=== PATIENT | male | born 1955 | race African-American/Black ===

== ENCOUNTER 2017-06-14 18:24 | Observation (INO) | payer OTHER ==
--- NOTE | 2017-06-14 19:16 | PDOC ---
Attending Attestation - Resident Resident Name: LoisIsrael - HPI HPI: 06/14/17 22:22 Pt presents to the ED complaining of L sided chest pain that has been constant for one week. Pain is worse with walking or other exertion. Also complaining of intermittent shortness of breath. Multiple cardiac risk factors. 06/14/17 22:28 - Physicial Exam PE: 06/14/17 22:28 Agree with resident exam. PAtient is alert and oriented and in no acute distress. Lungs are clear. Heart has regular rate and rhythm. No edema. - Medical Decision Making 06/14/17 22:34 Pt presents to the ED complaining of chest pain. Multiple risk factors for cardiac disease with a heart score of 4. Will check labs and admit to observation for rule out ACS.
--- NOTE | 2017-06-14 20:13 | PDOC ---
History of Present Illness <Whitney Alberts - Last Filed: 06/14/17 21:55> - General History Source: Patient Exam Limitations: No Limitations - History of Present Illness Initial Comments: 06/14/17 20:07 62yo M with history of IDDM, HTN, HLd who presents with one week of left anterior chest and arm pain. Pt reports the pain is more of a throbbing sensation, however at peak intensity the pain will cause him to catch his breath and moments of lightheadedness without syncope. Pt also endorses some increasing dyspnea on exertion. Pt denies seeing a [facility] erp architect in the past. He denies any fevers/chils, headaches, n/v/d/c, dizziness, blurry vision, shortness of breath at baseline, palpitations, abdominal pain, dysuria, polyuria , and lower extremity edema. Pt denies any smoking history. PCP: [facility] <Israel Abreu - Last Filed: 06/14/17 22:24> <Megan Sanchez - Last Filed: 06/15/17 03:53> - General Chief Complaint: Chest Pain Stated Complaint: chest pain Time Seen by Provider: 06/14/17 19:03 Past History <Whitney Alberts - Last Filed: 06/14/17 21:55> - Past Medical History Asthma: No Cardiac Disorders: Yes (1999 and 2006 [place]'s) CVA: Yes (2013) COPD: No Diabetes: Yes GI Disorders: No Disorders: No HTN: Yes Hypercholesterolemia: Yes Seizures: No - Surgical History Abdominal Surgery: No Appendectomy: No Cardiac Surgery: No Cholecystectomy: No Lung Surgery: No Neurologic Surgery: No Orthopedic Surgery: Yes (R TKR and lower back) - Reproductive History Testicular Surgery: No - Suicide/Smoking/Psychosocial Hx Smoking Status: No Smoking History: Never smoked Have you smoked in the past 12 months: No Number of Cigarettes Smoked Daily: 0 Information on smoking cessation initiated: No Hx Alcohol Use: No Drug/Substance Use Hx: No Substance Use Type: Alcohol, Cocaine Hx Substance Use Treatment: Yes <Israel Abreu - Last Filed: 06/14/17 22:24> <Megan Sanchez - Last Filed: 06/15/17 03:53> - Past Medical History Allergies/Adverse Reactions: Allergies Allergy/AdvReac Type Severity Reaction Status Date / Time No Known Allergies Allergy Verified 06/14/17 19:01 Home Medications: Ambulatory Orders Acetaminophen with Codeine [Tylenol # 4 -] 1 tab PO Q6H 04/07/13 Amlodipine Besylate [Norvasc -] 10 mg PO DAILY 04/07/13 Atorvastatin Ca [Lipitor] 80 mg PO DAILY 04/07/13 Cholecalciferol (Vitamin D3) [Vitamin D3] 1,000 unit PO DAILY 04/07/13 Terazosin HCl 5 mg PO DAILY 04/07/13 Clopidogrel Bisulfate [Plavix -] 75 mg PO DAILY 09/26/13 Insulin (Novolog 70/30) [Novolog Mix 70/30 Flexpen -] 42 units SQ ACBK 09/26/13 Insulin (Novolog 70/30) [Novolog Mix 70/30 Flexpen -] 45 units SQ HS 09/26/13 Metformin HCl [Metformin HCl ER] 4,000 mg PO DAILY 09/26/13 Methocarbamol [Robaxin -] 500 mg PO DAILY 09/26/13 Review of Systems - Review of Systems Constitutional: No: Chills, Fever, Night Sweats, Weakness HEENTM: No: Blurred Vision, Nose Congestion, Throat Pain Respiratory: Yes: SOB with Exertion. No: Cough, Wheezing Cardiac (ROS): Yes: Chest Pain, Lightheadedness. No: Edema, Palpitations, Syncope ABD/GI: No: Abdominal Distended, Constipated, Diarrhea, Nausea, Vomiting, Abdominal cramping : No: Burning, Dysuria, Frequency, Flank Pain Musculoskeletal: No: Back Pain, Neck Pain Neurological: Yes: Unsteady Gait. No: Headache, Numbness, Paresthesia, Tingling Hematologic/Lymphatic: No: Easy Bleeding, Easy Bruising <Israel Abreu - Last Filed: 06/14/17 22:24> *Physical Exam - Vital Signs Last Vital Signs Temp Pulse Resp BP Pulse Ox 98.5 F 108 H 17 94/72 100 06/14/17 21:13 06/14/17 21:13 06/14/17 21:13 06/14/17 21:13 06/14/17 21:13 <Whitney Alberts - Last Filed: 06/14/17 21:55> - Vital Signs Last Vital Signs Temp Pulse Resp BP Pulse Ox 97.8 F 93 H 20 109/72 98 06/14/17 19:02 06/14/17 19:02 06/14/17 19:02 06/14/17 19:02 06/14/17 19:02 - Physical Exam Comments: 06/14/17 20:43 GEN: NAD, awake, alert, laying in bed HEENT: NC/AT, EOMI, ARNOL, sclera anicteric, dry-moist mucosa without any plaques noted Neck: Soft, no JVD LUNGS: CTA bilaterally CARDIAC: RRR no murmurs appreciated CHEST: Pain reproducible with palpation of anterior wall ABD: Soft, slightly distended (pt's normal), nontender, no guarding, no rebound EXT: No edema noted, warm, 2+ DP pulses <Israel Abreu - Last Filed: 06/14/17 22:24> - Vital Signs Last Vital Signs Temp Pulse Resp BP Pulse Ox 98.6 F 100 H 15 108/70 100 06/15/17 03:00 06/15/17 03:00 06/15/17 03:00 06/15/17 03:00 06/15/17 03:00 <Megan Sanchez - Last Filed: 06/15/17 03:53> Heart Score/ECG Review - History History: Moderately suspicious - Electrocardiogram EKG: Normal - Age Age: 45-65 - Risk Factors Risk Factors Heart Score: Yes Hx Hypercholesterolemia, Yes Hx Hypertension, Yes Hx Diabetes Based on the list above the patient has:: >/=3 risk factors or Hx atherosclerotic disease - Troponin Troponin: </= normal limit - Score Heart Score - Total: 4 <Whitney Alberts - Last Filed: 06/14/17 21:55> - History History: Moderately suspicious - Electrocardiogram EKG: Normal - Age Age: 45-65 - Risk Factors Risk Factors Heart Score: Yes Hx Hypercholesterolemia, Yes Hx Hypertension, Yes Hx Diabetes, No Smoking History Based on the list above the patient has:: >/=3 risk factors or Hx atherosclerotic disease - Troponin Troponin: </= normal limit - Score Heart Score - Total: 4 #1 General ECG Interpretation: Sinus Rhythm, Normal Rate, Normal Intervals, No acute ischemic changes 06/14/17 20:22 NSR, Normal [place], normal R-wave progression, QTc 435ms, [place] interval 150ms <Israel Abreu - Last Filed: 06/14/17 22:24> ED Treatment Course - LABORATORY CBC & Chemistry Diagram: 06/14/17 20:15 06/14/17 20:29 - ADDITIONAL ORDERS Additional order review: Laboratory Results 06/14/17 06/14/17 06/14/17 20:29 20:29 20:15 Sodium 137 Potassium 4.8 D Chloride 113 H Carbon Dioxide 17 L D Anion Gap 7 L BUN 34 H D Creatinine 1.8 H D Creat Clearance w eGFR 38.68 Random Glucose 265 H D Calcium 7.0 L Total Bilirubin 0.5 AST 45 H D ALT 51 D Alkaline Phosphatase 90 D Creatine Kinase 185 Troponin I < 0.02 Cancelled Total Protein 7.4 Albumin 4.0 06/14/17 20:15 Sodium Cancelled Potassium Cancelled Chloride Cancelled Carbon Dioxide Cancelled Anion Gap Cancelled BUN Cancelled Creatinine Cancelled Creat Clearance w eGFR Cancelled Random Glucose Cancelled Calcium Cancelled Total Bilirubin Cancelled AST Cancelled ALT Cancelled Alkaline Phosphatase Cancelled Creatine Kinase Troponin I Total Protein Cancelled Albumin Cancelled 06/14/17 20:15 RBC 4.46 MCV 88.2 MCHC 34.4 RDW 15.6 MPV 9.9 Neutrophils % 68.0 Lymphocytes % 17.0 D Monocytes % 12.9 H Eosinophils % 1.2 Basophils % 0.9 - Medications Given in the ED: ED Medications Discontinued Medications Generic Name Dose Route Start Last Admin Trade Name Freq PRN Reason Stop Dose Admin Ibuprofen 600 mg 06/14/17 21:49 06/14/17 21:49 Motrin - PO 06/14/17 21:50 600 mg ONCE ONE Administration <Whitney Alberts - Last Filed: 06/14/17 21:55> - LABORATORY CBC & Chemistry Diagram: 06/14/17 20:15 06/14/17 20:29 - RADIOLOGY Radiology Studies Ordered: Category Date Time Status CXRPORT [CHEST X-RAY PORTABLE*] [RAD] Stat Radiology 06/14/17 19:45 Ordered <Israel Abreu - Last Filed: 06/14/17 22:24> - LABORATORY CBC & Chemistry Diagram: 06/14/17 20:15 06/14/17 20:29 - ADDITIONAL ORDERS Additional order review: Laboratory Results 06/14/17 06/14/17 06/14/17 20:29 20:29 20:15 Sodium 137 Potassium 4.8 D Chloride 113 H Carbon Dioxide 17 L D Anion Gap 7 L BUN 34 H D Creatinine 1.8 H D Creat Clearance w eGFR 38.68 Random Glucose 265 H D Calcium 7.0 L Total Bilirubin 0.5 AST 45 H D ALT 51 D Alkaline Phosphatase 90 D Creatine Kinase 185 Creatine Kinase Index 0.7 CK-MB (CK-2) 1.334 Troponin I < 0.02 Cancelled Total Protein 7.4 Albumin 4.0 06/14/17 20:15 Sodium Cancelled Potassium Cancelled Chloride Cancelled Carbon Dioxide Cancelled Anion Gap Cancelled BUN Cancelled Creatinine Cancelled Creat Clearance w eGFR Cancelled Random Glucose Cancelled Calcium Cancelled Total Bilirubin Cancelled AST Cancelled ALT Cancelled Alkaline Phosphatase Cancelled Creatine Kinase Creatine Kinase Index CK-MB (CK-2) Troponin I Total Protein Cancelled Albumin Cancelled 06/14/17 20:15 RBC 4.46 MCV 88.2 MCHC 34.4 RDW 15.6 MPV 9.9 Neutrophils % 68.0 Lymphocytes % 17.0 D Monocytes % 12.9 H Eosinophils % 1.2 Basophils % 0.9 - Medications Given in the ED: ED Medications Discontinued Medications Generic Name Dose Route Start Last Admin Trade Name Freq PRN Reason Stop Dose Admin Ibuprofen 600 mg 06/14/17 21:49 06/14/17 21:49 Motrin - PO 06/14/17 21:50 600 mg ONCE ONE Administration <Megan Sanchez - Last Filed: 06/15/17 03:53> Medical Decision Making - Medical Decision Making 06/14/17 20:55 Highly suspect costochronditis, however will r/o ACS --EKG reveals NSR with normal axis, normal R-wave progression, no ST abnormalities --CBC, CMP, Troponin I --CXR 06/14/17 21:50 Motrin 600mg PO once for pain currently <Israel Abreu - Last Filed: 06/14/17 22:24> *DC/Admit/Observation/Transfer <Whitney Alberts - Last Filed: 06/14/17 21:55> <Israel Abreu - Last Filed: 06/14/17 22:24> - Discharge Dispostion Admit: Yes <Megan Sanchez - Last Filed: 06/15/17 03:53> Diagnosis at time of Disposition: Chest pain Qualifiers: Chest pain type: unspecified Qualified Code(s): R07.9 - Chest pain, unspecified - Discharge Dispostion Condition at time of disposition: Stable
[2017-06-14 20:20] LABS: BASO % 0.9 % (0-2.0); EOS % 1.2 % (0-4.5); HEMATOCRIT 39.3 % (35.4-49); HEMOGLOBIN 13.5 GM/dL (11.7-16.9); MCH 30.3 pg (25.7-33.7); MCHC 34.4 g/dl (32.0-35.9); MEAN CELL VOLUME 88.2 fl (80-96); MEAN PLT VOLUME 9.9 fl (7.5-11.1); MONO % 12.9 % (3.8-10.2); PLATELET COUNT 204 K/MM3 (134-434); RBC 4.46 M/mm3 (4.00-5.60); RDW 15.6 % (11.9-15.9); WHITE BLOOD COUNT 4.7 K/mm3 (4.0-10.0)
[2017-06-14 21:31] LABS: ALK PHOS 90 U/L (45-117); ANION GAP 7 (8-16); BILIRUBIN,TOTAL 0.5 mg/dL (0.2-1.0); BLOOD UREA NITROGEN 34 mg/dL (7-18); CHLORIDE 113 mmol/L (98-107); CO2 17 mmol/L (21-32); CREATININE 1.8 mg/dL (0.7-1.3); GLUCOSE,RANDOM 265 mg/dL (74-106); POTASSIUM 4.8 mmol/L (3.5-5.1); SGOT/AST 45 U/L (15-37); SGPT/ALT 51 U/L (12-78); SODIUM 137 mmol/L (136-145); TOT PROT 7.4 g/dl (6.4-8.2)
[2017-06-14] MEDS ORDERED: IBUPROFEN 600 MG TABLET (FP) PO ONE ×2 (21:49→21:50)
--- NOTE | 2017-06-15 00:46 | HP ---
CHIEF COMPLAINT: CHest pain PCP: follows at [facility] HISTORY OF PRESENT ILLNESS: The patient is a 62 yo m w/ PMH DM HTN, HLD , CAD s/p MIx2 who comes into the ED c/o a 1 week history of left sided chest pain. The patient was walking as a normal pace when he felt an acute onset of a throbbing pain on the left side of his chest. The pain radiated to his left arm and is associated with lightheadedness and dyspnea on exertion. The patient denies any breathing problems at baseline. He does not follow with a [facility] consultant. The patient does not recall what medications he takes. The patient denies chest pain, Headache, palpitations, abdominal pain, trecent trauma to the area. 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 Allergies No Known Allergies Allergy (Verified 06/14/17 19:01) HOME MEDICATIONS: Home Medications Medication Instructions Recorded Acetaminophen with Codeine 1 tab PO Q6H 04/07/13 [Tylenol # 4 -] Amlodipine Besylate [Norvasc -] 10 mg PO DAILY 04/07/13 Atorvastatin Ca [Lipitor] 80 mg PO DAILY 04/07/13 Cholecalciferol (Vitamin D3) 1,000 unit PO DAILY 04/07/13 [Vitamin D3] Terazosin HCl 5 mg PO DAILY 04/07/13 Clopidogrel Bisulfate [Plavix -] 75 mg PO DAILY 09/26/13 Insulin (Novolog 70/30) [Novolog 42 units SQ ACBK 09/26/13 Mix 70/30 Flexpen -] Insulin (Novolog 70/30) [Novolog 45 units SQ HS 09/26/13 Mix 70/30 Flexpen -] Metformin HCl [Metformin HCl ER] 4,000 mg PO DAILY 09/26/13 Methocarbamol [Robaxin -] 500 mg PO DAILY 09/26/13 REVIEW OF SYSTEMS CONSTITUTIONAL: Absent: fever, chills, diaphoresis, generalized weakness, malaise, loss of appetite, weight change HEENT: Absent: rhinorrhea, nasal congestion, throat pain, throat swelling, difficulty swallowing, mouth swelling, ear pain, eye pain, visual changes CARDIOVASCULAR: Absent: syncope, palpitations, irregular heart rate, lightheadedness, peripheral edema RESPIRATORY: Absent: cough, orthopnea, wheezing, stridor, hemoptysis GASTROINTESTINAL: Absent: abdominal pain, abdominal distension, nausea, vomiting, diarrhea, constipation, melena, hematochezia GENITOURINARY: Absent: dysuria, frequency, urgency, hesitancy, hematuria, flank pain, genital pain MUSCULOSKELETAL: Absent: myalgia, arthralgia, joint swelling, back pain, neck pain SKIN: Absent: rash, itching, pallor HEMATOLOGIC/IMMUNOLOGIC: Absent: easy bleeding, easy bruising, lymphadenopathy, frequent infections ENDOCRINE: Absent: unexplained weight gain, unexplained weight loss, heat intolerance, cold intolerance NEUROLOGIC: Absent: headache, focal weakness or paresthesias, unsteady gait, seizure, mental status changes, bladder or bowel incontinence PSYCHIATRIC: Absent: anxiety, depression, suicidal or homicidal ideation, hallucinations. PHYSICAL EXAMINATION Vital Signs - 24 hr 06/14/17 06/14/17 19:02 21:13 Temperature 97.8 F 98.5 F Pulse Rate 93 H Pulse Rate [ 108 H Apical] Respiratory 20 17 Rate Blood Pressure 109/72 Blood Pressure 94/72 [Left Arm] O2 Sat by Pulse 98 100 Oximetry (%) GENERAL: Awake, alert, and fully oriented, in no acute distress. HEAD: Normal with no signs of trauma. EYES: Pupils equal, round and reactive to light, extraocular movements intact, sclera anicteric, conjunctiva clear. No lid lag. LUNGS: Breath sounds equal, clear to auscultation bilaterally. No wheezes, and no crackles. No accessory muscle use. HEART: Regular rate and rhythm, normal S1 and S2 without murmur, rub or gallop. The chest wall is tender to palpation on the left side from the clavicle down to the nipple line. Patient prticularly tender and the costochondral junctions. There is an assymmetry of the rib cage with the left being slightly scaphiod campred to the right. No tenderness on the left arm. ABDOMEN: Soft, nontender, not distended, normoactive bowel sounds, no guarding, no rebound, no masses. No hepatomegaly or splenomegaly. LOWER EXTREMITIES: 2+ pulses, warm, well-perfused. No calf tenderness. No peripheral edema. NEUROLOGICAL: Cranial nerves II-X intact. Normal speech. PSYCHIATRIC: Cooperative. Good eye contact. Appropriate mood and affect. SKIN: Warm, dry, normal turgor, no rashes or lesions noted, normal capillary refill. Laboratory Results - last 24 hr 06/14/17 06/14/17 06/14/17 20:15 20:15 20:15 WBC 4.7 RBC 4.46 Hgb 13.5 Hct 39.3 MCV 88.2 MCH 30.3 MCHC 34.4 RDW 15.6 Plt Count 204 MPV 9.9 Neutrophils % 68.0 Lymphocytes % 17.0 D Monocytes % 12.9 H Eosinophils % 1.2 Basophils % 0.9 Sodium Cancelled Potassium Cancelled Chloride Cancelled Carbon Dioxide Cancelled Anion Gap Cancelled BUN Cancelled Creatinine Cancelled Creat Clearance w eGFR Cancelled Random Glucose Cancelled Calcium Cancelled Total Bilirubin Cancelled AST Cancelled ALT Cancelled Alkaline Phosphatase Cancelled Creatine Kinase Creatine Kinase Index CK-MB (CK-2) Troponin I Cancelled Total Protein Cancelled Albumin Cancelled 06/14/17 06/14/17 20:29 20:29 WBC RBC Hgb Hct MCV MCH MCHC RDW Plt Count MPV Neutrophils % Lymphocytes % Monocytes % Eosinophils % Basophils % Sodium 137 Potassium 4.8 D Chloride 113 H Carbon Dioxide 17 L D Anion Gap 7 L BUN 34 H D Creatinine 1.8 H D Creat Clearance w eGFR 38.68 Random Glucose 265 H D Calcium 7.0 L Total Bilirubin 0.5 AST 45 H D ALT 51 D Alkaline Phosphatase 90 D Creatine Kinase 185 Creatine Kinase Index 0.7 CK-MB (CK-2) 1.334 Troponin I < 0.02 Total Protein 7.4 Albumin 4.0 ASSESSMENT/PLAN: The patient is a 62 yo m w/ DM, HTN, CAD s/p MS x2 who comes in c/o left sided cheat and arm pain. The patient is being admitted to rule out ACS. #Chest and arm pain likely 2/2 costochondritis vs musculoskeletal eitology r/o ACS -Pain reproducible on palpation -EKG shows NSR -Trop negative x2 -Ibuprofen 600mg Q6H PRN pain #DM -BGM ACHS -ISS ACHS -holding oral hypoglycemics #HTN -will resume home meds from medical record -c/w home norvasc 10mg #FEN -no fluids indicated -monitor lytes, replete PRN -diabetic diet #Dispo -admit tele obs -patient's home meds need to be verified with the [facility]; the pharmacy in the EMR is outdated Visit type - Emergency Visit Emergency Visit: Yes ED Registration Date: 06/15/17 Care time: The patient presented to the Emergency Department on the above date and was hospitalized for further evaluation of their emergent condition. - New Patient This patient is new to me today: Yes Date on this admission: 06/15/17 - Critical Care Critical Care patient: No Hospitalist Screening - Colonoscopy Questionnaire Colonoscopy Questionnaire: Colonoscopy Questionnaire - Patient: 50 - 75 years old and never had a screening colonoscopy: Unknown History of colon or rectal polyps, or CA: Unknown History of IBD, Crohn's disease or UC: Unknown History of abdominal radiation therapy as a child: Unknown - Relative: 1 with colon or rectal CA, or polyps at age 60 or younger: Unknown Colon or rectal CA diagnosed at age 45 or younger: Unknown Multiple relatives with colon or rectal CA: Unknown - Outcome: Screening Result: Negative Screen
[2017-06-15 05:26] VITALS: BMI 26.9
[2017-06-15] MEDS ORDERED: ACETAMINOPHEN 325 MG TABLET (FP) PO PRN (06:03)
--- NOTE | 2017-06-15 06:25 | PN ---
Teaching Attending Note Name of Resident: Esau Acosta ATTENDING PHYSICIAN STATEMENT I saw and evaluated the patient. I reviewed the resident's note and discussed the case with the resident. I agree with the resident's findings and plan as documented. 62 y/o M c/o left sided chest pain which started while walking. Past Medical History of CAD,HTN, DLP, h/o CVA with left hemiparesis and Diabetes Mellitus. On examination pain reproducible on palpation of anterior left hemithroax. Patient admitted to r/o ACS, troponins trended and patient given Aspiurin 325mg and ibuprofen for pain which was then relieved. CP most likely secondary to costochrondritis. patient can be discharged in morning.
[2017-06-15] MEDS ORDERED: INSULIN (NOVOLOG) ASPART 100 UNITS/ML 10ML VIAL ONE (06:48)
[2017-06-15] MEDS: INSULIN SLIDING SCALE (NOVOLOG) 1 VIAL SQ SCH ×4 (06:49→21:21)
[2017-06-15] MEDS ORDERED: IBUPROFEN 600 MG TABLET (FP) PO PRN (08:29)
[2017-06-15 08:42] LABS: BASO % 0.8 % (0-2.0); EOS % 1.3 % (0-4.5); HEMATOCRIT 36.5 % (35.4-49); HEMOGLOBIN 12.7 GM/dL (11.7-16.9); LYMPH % 26.8 % (8-40); MCH 30.3 pg (25.7-33.7); MCHC 34.8 g/dl (32.0-35.9); MEAN CELL VOLUME 87.2 fl (80-96); MEAN PLT VOLUME 9.7 fl (7.5-11.1); MONO % 14.2 % (3.8-10.2); NEUT % 56.9 % (42.8-82.8); PLATELET COUNT 192 K/MM3 (134-434); RBC 4.18 M/mm3 (4.00-5.60); WHITE BLOOD COUNT 4.5 K/mm3 (4.0-10.0)
[2017-06-15 09:04] LABS: ANION GAP 4 (8-16); BLOOD UREA NITROGEN 29 mg/dL (7-18); CALCIUM 7.2 mg/dL (8.5-10.1); CHLORIDE 111 mmol/L (98-107); CHOLESTEROL 70 mg/dL (50-200); CO2 22 mmol/L (21-32); CREATININE 1.3 mg/dL (0.7-1.3); GLUCOSE,RANDOM 196 mg/dL (74-106); HDL CHOLESTEROL 31 mg/dL (40-60); POTASSIUM 4.5 mmol/L (3.5-5.1); SODIUM 137 mmol/L (136-145); TRIGLYCERIDES 67 mg/dL (35-160)
[2017-06-15] MEDS ORDERED: PT OWN MED DRAWER 7, Y5N ONE (09:06)
[2017-06-15] MEDS: ATORVASTATIN CA 80 MG TABLET (FP) PO SCH (09:16)
[2017-06-15] MEDS: CLOPIDOGREL BISULFATE 75 MG TABLET (FP) PO SCH (09:16)
[2017-06-15] MEDS: METHOCARBAMOL 500 MG TABLET PO SCH (09:16)
[2017-06-15] MEDS: TERAZOSIN HCL 5 MG CAPSULE PO SCH (09:17)
[2017-06-15] MEDS: amLODIPine BESYLATE 10 MG TABLET (FP) PO SCH (09:17)
--- NOTE | 2017-06-15 10:41 | PN ---
Physical Exam: SUBJECTIVE: Patient seen and examined Patient has no new complain, feels better. No further chest pain. No fever or chills. OBJECTIVE: Vital Signs Temperature 97.4 F L 06/15/17 05:10 Pulse Rate 63 06/15/17 05:47 Respiratory Rate 16 06/15/17 05:47 Blood Pressure 148/84 06/15/17 05:10 O2 Sat by Pulse Oximetry (%) 98 06/15/17 05:10 GENERAL: The patient is awake, alert, and fully oriented, in no acute distress. HEAD: Normal with no signs of trauma. EYES: PERRL, extraocular movements intact, sclera anicteric, conjunctiva clear. ENT: Ears normal, oropharynx clear without exudates, moist mucous membranes. NECK: Trachea midline, full range of motion, supple. LUNGS: Breath sounds equal, clear to auscultation bilaterally, no wheezes, no crackles, no accessory muscle use. HEART: Regular rate and rhythm, S1, S2 without murmur, rub or gallop. ABDOMEN: Soft, nontender, nondistended, normoactive bowel sounds, no guarding, no rebound, no hepatosplenomegaly, no masses. EXTREMITIES: 2+ pulses, warm, well-perfused, no edema. NEUROLOGICAL: Cranial nerves II through XII grossly intact. Normal speech, gait not observed. PSYCH: Normal mood, normal affect. SKIN: Warm, dry, normal turgor, no rashes or lesions noted Active Medications Generic Name Dose Route Start Last Admin Trade Name Freq PRN Reason Stop Dose Admin Amlodipine Besylate 10 mg 06/15/17 10:00 06/15/17 09:17 Norvasc - PO 10 mg DAILY CHEN Administration Atorvastatin Calcium 80 mg 06/15/17 10:00 06/15/17 09:16 Lipitor - PO 80 mg DAILY CHEN Administration Clopidogrel Bisulfate 75 mg 06/15/17 10:00 06/15/17 09:16 Plavix - PO 75 mg DAILY CHEN Administration Ibuprofen 600 mg 06/15/17 08:29 Motrin - PO Q4H PRN PAIN LEVEL 6-10 Insulin Aspart 1 vial 06/15/17 07:00 06/15/17 06:49 Novolog Vial Sliding Scale - SQ 6 unit ACHS CHEN Administration Protocol Methocarbamol 500 mg 06/15/17 10:00 06/15/17 09:16 Robaxin - PO 500 mg DAILY CHEN Administration Terazosin HCl 5 mg 06/15/17 10:00 06/15/17 09:17 Hytrin - PO 5 mg DAILY CHEN Administration Home Medications Medication Instructions Recorded Acetaminophen with Codeine 1 tab PO Q6H PRN 04/07/13 [Tylenol # 4 -] Amlodipine Besylate [Norvasc -] 10 mg PO DAILY 04/07/13 Atorvastatin Ca [Lipitor] 80 mg PO DAILY 04/07/13 Cholecalciferol (Vitamin D3) 1,000 unit PO DAILY 04/07/13 [Vitamin D3] Terazosin HCl 5 mg PO DAILY 04/07/13 Clopidogrel Bisulfate [Plavix -] 75 mg PO DAILY 09/26/13 Insulin (Novolog 70/30) [Novolog 42 units SQ ACBK 09/26/13 Mix 70/30 Flexpen -] Insulin (Novolog 70/30) [Novolog 45 units SQ HS 09/26/13 Mix 70/30 Flexpen -] Metformin HCl [Metformin HCl ER] 500 mg PO DAILY 09/26/13 Methocarbamol [Robaxin -] 500 mg PO DAILY 09/26/13 ASSESSMENT/PLAN: The patient is a 62 yo m w/ DM, HTN, CAD s/p [place] x2 who comes in c/o left sided chest and arm pain. The patient is being admitted to rule out ACS. #Acute Chest pain resolved and arm pain likely 2/2 costochondritis vs musculoskeletal etiology , 3 sets if trops were negative, pain is reproducible on palpation EKG shows NSR. No further chest pain. #DM BGM ACHS, ISS ACHS, metformin is on hold #HTN continue home norvasc 10mg admit tele obs. possible discharge in am Visit type - Emergency Visit Emergency Visit: Yes ED Registration Date: 06/15/17 Care time: The patient presented to the Emergency Department on the above date and was hospitalized for further evaluation of their emergent condition. - New Patient This patient is new to me today: Yes Date on this admission: 06/15/17 - Critical Care Critical Care patient: No - Discharge Referral Referred to [facility] Med [facility] No
[2017-06-15 13:56] LABS: ALBUMIN 3.7 g/dl (3.4-5.0); ALK PHOS 74 U/L (45-117); BILIRUBIN,TOTAL 0.4 mg/dL (0.2-1.0); SGOT/AST 28 U/L (15-37); SGPT/ALT 47 U/L (12-78); TOT PROT 6.5 g/dl (6.4-8.2)
[2017-06-15 14:53] LABS: INR 1.04 (0.82-1.09); PROTHROMBIN TIME (PATIENT) 11.8 SEC (9.7-13.0)
[2017-06-16] MEDS: INSULIN SLIDING SCALE (NOVOLOG) 1 VIAL SQ SCH ×2 (06:33→11:37)
--- NOTE | 2017-06-16 08:42 | PN ---
Physical Exam: SUBJECTIVE: Patient seen and examined No acute events overnight. Patient feels well this morning. Denies any more chest pain. OBJECTIVE: Vital Signs Period Temp Pulse Resp BP Sys/Sagastume Pulse Ox Last 24 Hr 98.1 F-98.8 F 75-108 16-20 102-124/53-77 97-97 GENERAL: Awake, alert, and fully oriented, in no acute distress. HEAD: Normal with no signs of trauma. EYES: Extraocular movements intact, sclera anicteric, conjunctiva clear. No lid lag. LUNGS: Breath sounds equal, clear to auscultation bilaterally. No wheezes, and no crackles. No accessory muscle use. HEART: Regular rate and rhythm, normal S1 and S2 without murmur, rub or gallop. ABDOMEN: Soft, nontender, not distended, normoactive bowel sounds, no guarding, no rebound, no masses. No hepatomegaly or splenomegaly. LOWER EXTREMITIES: 2+ pulses, warm, well-perfused. No calf tenderness. No peripheral edema. NEUROLOGICAL: Cranial nerves II-X intact. Normal speech. PSYCHIATRIC: Cooperative. Good eye contact. Appropriate mood and affect. SKIN: Warm, dry, normal turgor, no rashes or lesions noted, normal capillary refill. Laboratory Results - last 24 hr 06/15/17 06/15/17 06/15/17 06:00 08:10 08:10 WBC 4.5 RBC 4.18 Hgb 12.7 Hct 36.5 MCV 87.2 MCH 30.3 MCHC 34.8 RDW 15.0 Plt Count 192 MPV 9.7 Neutrophils % 56.9 Lymphocytes % 26.8 D Monocytes % 14.2 H Eosinophils % 1.3 Basophils % 0.8 PT with INR 11.80 INR 1.04 PTT (Actin FS) 33.5 Sodium Potassium Chloride Carbon Dioxide Anion Gap BUN Creatinine Creat Clearance w eGFR POC Glucometer Random Glucose Hemoglobin A1c % Calcium Total Bilirubin AST ALT Alkaline Phosphatase Total Protein Albumin Triglycerides Cholesterol Total LDL Cholesterol HDL Cholesterol 06/15/17 06/15/17 06/15/17 08:10 08:10 11:20 WBC RBC Hgb Hct MCV MCH MCHC RDW Plt Count MPV Neutrophils % Lymphocytes % Monocytes % Eosinophils % Basophils % PT with INR INR PTT (Actin FS) Sodium 137 Potassium 4.5 Chloride 111 H Carbon Dioxide 22 D Anion Gap 4 L BUN 29 H Creatinine 1.3 D Creat Clearance w eGFR No Result Required. POC Glucometer 206 Random Glucose 196 H D Hemoglobin A1c % 13.5 H D Calcium 7.2 L Total Bilirubin 0.4 AST 28 D ALT 47 Alkaline Phosphatase 74 Total Protein 6.5 Albumin 3.7 Triglycerides 67 D Cholesterol 70 D Total LDL Cholesterol 38 D HDL Cholesterol 31 L D 06/15/17 06/15/17 06/16/17 16:43 21:17 06:14 WBC RBC Hgb Hct MCV MCH MCHC RDW Plt Count MPV Neutrophils % Lymphocytes % Monocytes % Eosinophils % Basophils % PT with INR INR PTT (Actin FS) Sodium Potassium Chloride Carbon Dioxide Anion Gap BUN Creatinine Creat Clearance w eGFR POC Glucometer 252 262 258 Random Glucose Hemoglobin A1c % Calcium Total Bilirubin AST ALT Alkaline Phosphatase Total Protein Albumin Triglycerides Cholesterol Total LDL Cholesterol HDL Cholesterol Active Medications Generic Name Dose Route Start Last Admin Trade Name Freq PRN Reason Stop Dose Admin Amlodipine Besylate 10 mg 06/15/17 10:00 06/15/17 09:17 Norvasc - PO 10 mg DAILY CHEN Administration Atorvastatin Calcium 80 mg 06/15/17 10:00 06/15/17 09:16 Lipitor - PO 80 mg DAILY CHEN Administration Clopidogrel Bisulfate 75 mg 06/15/17 10:00 06/15/17 09:16 Plavix - PO 75 mg DAILY CHEN Administration Ibuprofen 600 mg 06/15/17 08:29 06/15/17 21:24 Motrin - PO 600 mg Q4H PRN Administration PAIN LEVEL 6-10 Insulin Aspart 1 vial 06/15/17 07:00 06/16/17 06:33 Novolog Vial Sliding Scale - SQ 6 unit ACHS CHEN Administration Protocol Methocarbamol 500 mg 06/15/17 10:00 06/15/17 09:16 Robaxin - PO 500 mg DAILY CHEN Administration Terazosin HCl 5 mg 06/15/17 10:00 06/15/17 09:17 Hytrin - PO 5 mg DAILY CHEN Administration ASSESSMENT/PLAN: The patient is a 62 yo m w/ DM, HTN, CAD s/p SD x2 who comes in c/o left sided cheat and arm pain. The patient is being admitted to rule out ACS. #Chest and arm pain likely 2/2 costochondritis vs musculoskeletal eitology r/o ACS -EKG shows NSR -Trop negative x2 -Ibuprofen 600mg Q6H PRN pain #DM, uncontrolled A1c of 13.5 -BGM ACHS -ISS ACHS -holding oral hypoglycemics -started levemir 14 units hs -Endocrine consult for uncontrolled DM #HTN -will resume home meds from medical record -c/w home norvasc 10mg #FEN -no fluids indicated -monitor lytes, replete PRN -diabetic diet #Dispo -pending better control of sugars Visit type - Emergency Visit Emergency Visit: Yes ED Registration Date: 06/15/17 Care time: The patient presented to the Emergency Department on the above date and was hospitalized for further evaluation of their emergent condition. - New Patient This patient is new to me today: Yes Date on this admission: 06/16/17 - Critical Care Critical Care patient: No
[2017-06-16] MEDS ORDERED: PT OWN MED DRAWER 7, Y5N ONE (09:29)
[2017-06-16] MEDS: ATORVASTATIN CA 80 MG TABLET (FP) PO SCH (09:50)
[2017-06-16] MEDS: CLOPIDOGREL BISULFATE 75 MG TABLET (FP) PO SCH (09:50)
[2017-06-16] MEDS: METHOCARBAMOL 500 MG TABLET PO SCH (09:50)
[2017-06-16] MEDS: TERAZOSIN HCL 5 MG CAPSULE PO SCH (09:50)
[2017-06-16] MEDS: amLODIPine BESYLATE 10 MG TABLET (FP) PO SCH (09:50)
[2017-06-16 11:22] VITALS: BP 112/56; PULSE 68; TEMP 98
[2017-06-16] MEDS ORDERED: INSULIN (NOVOLOG) ASPART 100 UNITS/ML 10ML VIAL ONE (11:35)
--- NOTE | 2017-06-16 13:33 | DS ---
Physical Exam: Selected Entries 06/16/17 10:00 Temperature 98.0 F Pulse Rate 68 Respiratory 20 Rate Blood Pressure 112/56 O2 Sat by Pulse 97 Oximetry (%) Oxygen Delivery Room Air Method Laboratory Tests 06/14/17 06/14/17 06/15/17 20:29 20:29 03:50 WBC Hgb Hct Plt Count PT with INR INR PTT (Actin FS) Sodium Potassium Chloride Carbon Dioxide Anion Gap BUN Creatinine 1.8 H D Random Glucose Hemoglobin A1c % Troponin I < 0.02 < 0.02 Triglycerides Cholesterol Total LDL Cholesterol HDL Cholesterol 06/15/17 06/15/17 06/15/17 06:00 08:10 08:10 WBC 4.5 Hgb 12.7 Hct 36.5 Plt Count 192 PT with INR 11.80 INR 1.04 PTT (Actin FS) 33.5 Sodium Potassium Chloride Carbon Dioxide Anion Gap BUN Creatinine Random Glucose Hemoglobin A1c % Troponin I Triglycerides Cholesterol Total LDL Cholesterol HDL Cholesterol 06/15/17 06/15/17 08:10 08:10 WBC Hgb Hct Plt Count PT with INR INR PTT (Actin FS) Sodium 137 Potassium 4.5 Chloride 111 H Carbon Dioxide 22 D Anion Gap 4 L BUN 29 H Creatinine 1.3 D Random Glucose 196 H D Hemoglobin A1c % 13.5 H D Troponin I Triglycerides 67 D Cholesterol 70 D Total LDL Cholesterol 38 D HDL Cholesterol 31 L D cxr- no acute pathology HOSPITAL COURSE: Date of Admission:06/15/17 Date of Discharge: 06/16/17 62 yo m w/ PMH DM HTN, HLD , CAD s/p MIx2 who comes into the ED c/o a 1 week history of left sided chest pain admitted for r/o acs. Trops negative x 2 and chest pain has resolved. Patient found to have HBa1c elevated to 13.5. He will follow up with endocrinology as an outpatient for glucose control and will f/u with his outside major gifts officer. Minutes to complete discharge: 45 <Mick Davis - Last Filed: 06/16/17 13:30> Physical Exam: Patient is comfortable with no acute distress, will follow with his own major gifts officer for further w/u. <Srinivas Fritz - Last Filed: 06/17/17 17:38> Discharge Summary Reason For Visit: CHEST PAIN Current Active Problems Diabetes mellitus (Chronic) Hypertension (Chronic) - Home Medications Comprehensive Discharge Medication List: Ambulatory Orders Acetaminophen with Codeine [Tylenol # 4 -] 1 tab PO Q6H PRN 04/07/13 Amlodipine Besylate [Norvasc -] 10 mg PO DAILY 04/07/13 Atorvastatin Ca [Lipitor] 80 mg PO DAILY 04/07/13 Cholecalciferol (Vitamin D3) [Vitamin D3] 1,000 unit PO DAILY 04/07/13 Terazosin HCl 5 mg PO DAILY 04/07/13 Clopidogrel Bisulfate [Plavix -] 75 mg PO DAILY 09/26/13 Insulin (Novolog 70/30) [Novolog Mix 70/30 Flexpen -] 42 units SQ ACBK 09/26/13 Insulin (Novolog 70/30) [Novolog Mix 70/30 Flexpen -] 45 units SQ HS 09/26/13 Metformin HCl [Metformin HCl ER] 500 mg PO DAILY 09/26/13 Methocarbamol [Robaxin -] 500 mg PO DAILY 09/26/13 <Mick Davis - Last Filed: 06/16/17 13:30> - Home Medications Comprehensive Discharge Medication List: Ambulatory Orders RX: Acetaminophen with Codeine [Tylenol # 4 -] 1 tab PO Q6H PRN 04/07/13 RX: Amlodipine Besylate [Norvasc -] 10 mg PO DAILY 04/07/13 RX: Atorvastatin Ca [Lipitor] 80 mg PO DAILY 04/07/13 RX: Cholecalciferol (Vitamin D3) [Vitamin D3] 1,000 unit PO DAILY 04/07/13 RX: Terazosin HCl 5 mg PO DAILY 04/07/13 RX: Clopidogrel Bisulfate [Plavix -] 75 mg PO DAILY 09/26/13 RX: Insulin (Novolog 70/30) [Novolog Mix 70/30 Flexpen -] 42 units SQ ACBK 09/26 RX: Insulin (Novolog 70/30) [Novolog Mix 70/30 Flexpen -] 45 units SQ HS RX: Metformin HCl [Metformin HCl ER] 500 mg PO DAILY 09/26/13 RX: Methocarbamol [Robaxin -] 500 mg PO DAILY 09/26/13 <Srinivas Fritz - Last Filed: 06/17/17 17:38> Condition: Stable - Instructions Diet, Activity, Other Instructions: You were in the hospital for chest pain and were found to have uncontrolled diabetes. Please take your home medications for diabetes and follow up with an key attendant within a few days. A referral has been provided for you. Dr. Thomas. Please follow up with your pcp and major gifts officer within 1 week. Continue your other home medications as prescribed If you have chest pain, shortness of breath, or any new/worsening symptoms please come back to the hospital immediately. Referrals: Johnson Sibley [Primary Care Provider] - Randolph Thomas MD [Staff Physician] - Disposition: HOME This patient is new to me today: Yes Date on this admission: 06/16/17 Emergency Visit: Yes ED Registration Date: 06/15/17 Care time: The patient presented to the Emergency Department on the above date and was hospitalized for further evaluation of their emergent condition. Critical Care patient: No - Discharge Referral Referred to [facility] No <Mick Davis - Last Filed: 06/16/17 13:30>
[2017-06-16] MEDS ORDERED: INSULIN (LEVEMIR) 100 UNITS/ML UNITS SQ SCH (22:00)
--- NOTE | 2017-06-19 10:37 | EKG ---
Test Reason : Blood Pressure : / mmHG Vent. Rate : 092 BPM Atrial Rate : 092 BPM P-R Int : 150 ms QRS Dur : 088 ms QT Int : 352 ms P-R-T Axes : 046 018 054 degrees QTc Int : 435 ms NORMAL SINUS RHYTHM NORMAL ECG WHEN COMPARED WITH ECG OF 23-AUG-2014 09:44, VENT. RATE HAS INCREASED BY 38 BPM Confirmed by SILVANO PETERSON MD ([id number]) on 06/19/2017 10:36:50 AM Referred By: Confirmed By:SILVANO PETERSON MD
== END 2017-06-16 14:12 | disposition home or self-care (01) ==
LOC: JER 18:24 → JERBED 06-15 03:53 → J4S 06-15 04:51
PROVIDERS: ADMIT Internal Medicine; ATTEND Internal Medicine
PROC: 3E013VG Introduction of Insulin into Subcutaneous Tissue, Percutaneous Approach (ICD-10-PCS; principal; 2017-06-15)
DX: R07.9 Chest pain, unspecified (principal); I10 Essential (primary) hypertension; E78.5 Hyperlipidemia, unspecified; E11.65 Type 2 diabetes mellitus with hyperglycemia; I25.2 Old myocardial infarction; Z79.4 Long term (current) use of insulin; Z86.73 Personal history of transient ischemic attack (TIA), and cerebral infarction without residual deficits; Z79.84 Long term (current) use of oral hypoglycemic drugs; I25.10 Atherosclerotic heart disease of native coronary artery without angina pectoris
CPT/HCPCS: 36415; 71045-TC-FY; 80048; 80053; 80061; 82550; 82553; 82962; 83036; 83721; 84484; 85025; 85610; 85730; 93005; 93010; 96372; 99285-25; G0378

== ENCOUNTER 2017-12-04 17:35 | Emergency (ER) | payer OTHER ==
[2017-12-04 18:19] VITALS: BP 131/85; PULSE 71; TEMP 98.2; BMI 32.8
--- NOTE | 2017-12-04 18:26 | PDOC ---
History of Present Illness - General History Source: Patient, Care Provider (nutrition aides teacher ), Old Records Exam Limitations: No Limitations - History of Present Illness Initial Comments: 12/04/17 18:45 The patient is a 62 year old male, with a significant past medical history of IDDM, HTN, HLD, recent CVA with residual L sided weakness , who presents to the ED complaining of left hand swelling for the past 2 weeks that has worsened. His aide reports that he saw the swelling 2 weeks ago and it has indeed gotten more swollen. He denies any trauma to the area and notes that he does hang his arm down when he walks due to the weakness. The patient denies chest pain, shortness of breath, headache and dizziness. Denies fever, chills, nausea, vomiting, diarrhea or constipation. Allergies: None Past surgical history: R TKR and lower back surgery Social History: No alcohol, tobacco or drug use reported Niece: Daria Green [phone] <Toño Lester - Last Filed: 12/04/17 19:49> <Wade Nunez - Last Filed: 12/04/17 21:04> - General Chief Complaint: Weakness Stated Complaint: WEAKNESS Time Seen by Provider: 12/04/17 18:24 Past History <Toño Lester - Last Filed: 12/04/17 19:49> - Past Medical History Asthma: No Cardiac Disorders: Yes (1999 and 2006 SC's) CVA: Yes (2013- no residual, cva 2018) COPD: No CHF: No Diabetes: Yes GI Disorders: No Disorders: No HTN: Yes Hypercholesterolemia: Yes Seizures: No - Surgical History Abdominal Surgery: No Appendectomy: No Cardiac Surgery: No Cholecystectomy: No Lung Surgery: No Neurologic Surgery: No Orthopedic Surgery: Yes (R TKR and lower back surgery) - Reproductive History Testicular Surgery: No - Suicide/Smoking/Psychosocial Hx Smoking Status: No Smoking History: Never smoked Have you smoked in the past 12 months: No Number of Cigarettes Smoked Daily: 0 Information on smoking cessation initiated: No Hx Alcohol Use: No Drug/Substance Use Hx: No Substance Use Type: None Hx Substance Use Treatment: Yes <Wade Nunez - Last Filed: 12/04/17 21:04> - Past Medical History Allergies/Adverse Reactions: Allergies Allergy/AdvReac Type Severity Reaction Status Date / Time No Known Allergies Allergy Verified 12/04/17 18:19 Home Medications: Ambulatory Orders Atorvastatin Ca [Lipitor] 80 mg PO DAILY 04/07/13 Cholecalciferol (Vitamin D3) [Vitamin D3] 1,000 unit PO DAILY 04/07/13 Terazosin HCl 5 mg PO DAILY 04/07/13 Clopidogrel Bisulfate [Plavix -] 75 mg PO DAILY 09/26/13 Insulin (Novolog 70/30) [Novolog Mix 70/30 Flexpen -] 42 units SQ ACBK 09/26/13 Insulin (Novolog 70/30) [Novolog Mix 70/30 Flexpen -] 45 units SQ HS 09/26/13 Metformin HCl [Metformin HCl ER] 500 mg PO DAILY 09/26/13 Methocarbamol [Robaxin -] 500 mg PO DAILY 09/26/13 Acetaminophen [Tylenol .Regular Strength -] 650 mg PO Q6H PRN tablet 07/29/17 Clotrimazole/Betamet Diprop [Lotrisone -] 1 applic TP BID tube 07/29/17 Lisinopril [Prinivil] 2.5 mg PO DAILY tablet 07/29/17 Metoprolol Succinate [Toprol XL -] 25 mg PO DAILY tab.sr.24h 07/29/17 Review of Systems - Review of Systems Able to Perform ROS?: Yes Comments:: 12/04/17 18:43 CONSTITUTIONAL: No fever, no chills, no fatigue EYES: No visual changes ENT: No ear pain, no sore throat CARDIOVASCULAR: No chest pain, no palpitations RESPIRATORY: No cough, no SOB GI: No abdominal pain, no nausea, no vomiting, no constipation, no diarrhea GENITOURINARY: No dysuria, no frequency, no hematuria MUSKULOSKELETAL: (+) Left hand swelling. No backpain, no joint pain, no myalgias SKIN: No rash NEURO: No headache <Toño Lester - Last Filed: 12/04/17 19:49> *Physical Exam - Vital Signs Last Vital Signs Temp Pulse Resp BP Pulse Ox 98.2 F 71 16 131/85 100 12/04/17 17:35 12/04/17 17:35 12/04/17 17:35 12/04/17 17:35 12/04/17 17:35 <Toño Lester - Last Filed: 12/04/17 19:49> - Vital Signs Last Vital Signs Temp Pulse Resp BP Pulse Ox 98.2 F 71 16 131/85 100 12/04/17 17:35 12/04/17 17:35 12/04/17 17:35 12/04/17 17:35 12/04/17 17:35 - Physical Exam Comments: 12/04/17 20:48 EXAMINATION CONSTITUTIONAL: AOx3; well nourished; in no apparent distress HEAD: Normocephalic; atraumatic EYES: PERRL; EOM intact ENMT: + left sided facial droop with weakness of left perioral muscles NECK: Supple; non-tender; no cervical lymphadenopathy CARD: Normal S1, S2; no murmurs, rubs, or gallops RESP: Normal chest excursion with respiration; breath sounds clear and equal bilaterally; no wheezes, rhonchi, or rales ABD: Soft, non-distended; non-tender; no palpable organomegaly, no palpable hernias EXT: Left hand is diffusely edematous with pitting edema, normal cap refill and intact radial and ulnar pulses; mild tenderness is elicited upon flexion/ extension of the risk; there is no tenderness with passive movement at the MCP/ PIP/DIP of all digits; distal pulses intact SKIN: Warm, dry, no rash NEURO: +facial droop, + dysarthria; + left hand: pt unable to form a fist with LUE strength at 2/5 old). <Wade Nunez - Last Filed: 12/04/17 21:04> Heart Score/ECG Review #1 ECG reviewed & interpreted by me at: 18:42 12/04/17 18:07 Vent. Rate: 67 bpm VA interval: 164 ms Normal sinus rhythm Nonspecific T wave abnormality <Toño Lester - Last Filed: 12/04/17 19:49> Medical Decision Making - Medical Decision Making 12/04/17 20:55 62-year-old patient with multiple comorbidities, status post CVA with resultant left-sided facial droop and left upper extremity weakness presents to the ER with worsening left hand swelling for the past 2 weeks. Patient denies trauma/ fever or chills. In the ER, patient noted to be initially hypertensive, with resolution of hypertension without intervention. Physical exam reveals edematous left hand with negative kanavle signs. Left upper extremity Doppler ultrasound shows no evidence of DVT. I suspect patient's edema is related to left wrist arthritis as well as lack of movement within the affected hand. We' ll advise extremity elevation, Tylenol as needed for pain with PMD follow-up for physical therapy. Will provide sling. <Wade Nunez - Last Filed: 12/04/17 21:04> *DC/Admit/Observation/Transfer - Attestations Scribe Attestion: 12/04/17 18:43 Documentation prepared by Toño Lester, acting as medical biller/coder for Wade Nunez MD <Toño Lester - Last Filed: 12/04/17 19:49> <Wade Nunez - Last Filed: 12/04/17 21:04> Diagnosis at time of Disposition: Edema of hand - Discharge Dispostion Disposition: HOME Condition at time of disposition: Stable - Referrals Referrals: [facility], one week [Other] - Patient Instructions Printed Discharge Instructions: DI for Dependent Edema Additional Instructions: Your hand swelling is related to wrist arthritis as well as lack of movement within the hand. Please elevate the left arm as well as engage in physical therapy to improve blood flow. Return immediately for fever, severe pain.
[2017-12-04] MEDS ORDERED: ACETAMINOPHEN 325 MG TABLET (FP) PO ONE (18:34)
[2017-12-04] MEDS ORDERED: ACETAMINOPHEN 325 MG TABLET (FP) ONE (18:41)
--- NOTE | 2017-12-07 18:05 | EKG ---
Test Reason : Blood Pressure : / mmHG Vent. Rate : 067 BPM Atrial Rate : 067 BPM P-R Int : 164 ms QRS Dur : 096 ms QT Int : 362 ms P-R-T Axes : 052 -17 037 degrees QTc Int : 382 ms NORMAL SINUS RHYTHM NONSPECIFIC T WAVE ABNORMALITY ABNORMAL ECG WHEN COMPARED WITH ECG OF 25-JUL-2017 14:24, NONSPECIFIC T WAVE ABNORMALITY NO LONGER EVIDENT IN INFERIOR LEADS NONSPECIFIC T WAVE ABNORMALITY HAS REPLACED INVERTED T WAVES IN LATERAL LEADS QT HAS SHORTENED Confirmed by JOSE HALE MD ([id number]) on 12/07/2017 6:04:54 PM Referred By: Confirmed By:JOSE HALE MD
== END 2017-12-04 22:34 | disposition home or self-care (01) ==
LOC: JER 17:35
DX: R60.0 Localized edema (principal); I10 Essential (primary) hypertension; E78.00 Pure hypercholesterolemia, unspecified; E11.9 Type 2 diabetes mellitus without complications; Z79.4 Long term (current) use of insulin; I69.892 Facial weakness following other cerebrovascular disease; I69.854 Hemiplegia and hemiparesis following other cerebrovascular disease affecting left non-dominant side; I25.2 Old myocardial infarction; Z96.651 Presence of right artificial knee joint
CPT/HCPCS: 93005; 93010; 93971; 99283-25

== ENCOUNTER 2018-09-30 19:02 | Emergency (ER) | payer OTHER | END 2018-09-30 20:41 | disposition home or self-care (01) | LOC: JERFT 19:02 ==

== ENCOUNTER 2019-01-22 10:05 | Emergency (ER) | payer OTHER ==
[2019-01-22 10:47] VITALS: TEMP 97.8; BMI 41.3
[2019-01-22] MEDS ORDERED: DEXTROSE 50%-WATER - 25 GM/50 ML VIAL IVPUSH ONE ×2 (10:47→11:01)
[2019-01-22] MEDS ORDERED: DEXTROSE 50%-WATER 25 GM/50 ML DISP.SYRIN ONE ×2 (10:55→11:06)
[2019-01-22 11:49] LABS: INR 1.33 (0.83-1.09); PROTHROMBIN TIME (PATIENT) 15.7 SEC (9.7-13.0)
[2019-01-22 11:50] LABS: ALBUMIN 4.1 g/dl (3.4-5.0); ALK PHOS 67 U/L (45-117); ANION GAP 9 MMOL/L (8-16); BILIRUBIN,TOTAL 0.8 mg/dL (0.2-1); BLOOD UREA NITROGEN 13.3 mg/dL (7-18); CALCIUM 8.9 mg/dL (8.5-10.1); CHLORIDE 108 mmol/L (98-107); CO2 25 mmol/L (21-32); CREATININE 0.9 mg/dL (0.55-1.3); POTASSIUM 3.9 mmol/L (3.5-5.1); SGOT/AST 17 U/L (15-37); SGPT/ALT 26 U/L (13-61); SODIUM 143 mmol/L (136-145); TOT PROT 7.3 g/dl (6.4-8.2)
[2019-01-22 12:03] LABS: GLUCOSE,RANDOM 42 mg/dL (74-106)
--- NOTE | 2019-01-22 12:34 | PDOC ---
Documentation entered by Hao Quiroga SCRIBE, acting as scribe for Joselo Casas MD. Joselo Casas MD: This documentation has been prepared by the Junaid mendez Daniel, SCRIBE, under my direction and personally reviewed by me in its entirety. I confirm that the documentation accurately reflects all work, treatment, procedures, and medical decision making performed by me. Attending Attestation - Resident Resident Name: JayceeMilton - ED Attending Attestation I have performed the following: I have examined & evaluated the patient, The case was reviewed & discussed with the resident, I agree w/resident's findings & plan, Exceptions are as noted - HPI HPI: 01/22/19 12:25 The patient is a 64 year old male with a past medical history of diabetes and prior stroke (06/06 with residual left sided weakness) here today for evaluation of low blood sugar. The patient reports that he took his insulin last night and ate last night but did not eat this morning. EMS reports that they gave the patient 4 doses of oral glucose after noting that his blood sugar was 58. Home health aide reports that she found the patient to be talking slowly this morning and unable to get out of bed. Patient denies headache, lightheadedness. Denies fever, chills. Denies chest pain, shortness of breath. Denies nausea, vomiting, diarrhea, abdominal pain. Allergies: NKA PCP: Anabel Montana - Physicial Exam PE: 01/22/19 12:25 GENERAL: The patient is awake, alert, and fully oriented, Nontoxic - in no acute distress. HEAD: Normocephalic, atraumatic. EYES: extraocular movements intact, sclera anicteric, conjunctiva clear. ENT: Normal voice, Moist mucous membranes. NECK: Normal range of motion, supple LUNGS: Breath sounds equal, clear to auscultation bilaterally. No wheezes, no rhonchi, no rales. HEART: Regular rate and rhythm, without murmur, rub or gallop. ABDOMEN: Soft, nontender, No guarding, no rebound.No CVA tenderness EXTREMITIES: Normal range of motion, no edema. No cyanosis. No erythema, or tenderness. NEUROLOGICAL: +mild contractions of upper left extremities. + 2+ strength of left extremities. No facial assymetry, Normal speech PSYCH: Normal mood, normal affect. SKIN: Warm, Dry, normal turgor - Medical Decision Making 01/22/19 12:30 64-year-old gentleman presenting with hypoglycemia, without any other complaints. Patient did get oral sugars from EMS but was noted to be hypoglycemic upon arrival the patient got D50 as well as juice upon arrival. Patient has been maintaining his blood sugar. Will screen for occult infection , metabolic derangements, ACS. The patient's CBC was hemolyzed, CMP noted for hypoglycemia (this was done upon arrival before the patient got any juice/D50), awaiting UA If he can becomes further hypoglycemic will admit for further management. I suspect the patient's hypoglycemia may be secondary to not eating breakfast We will give the patient a meal we will continue to monitor his blood sugar. 01/22/19 13:46 Patient BGM has been stable, currently asymptomatic we will discharge patient with outpatient management Return precautions were discussed Patient encouraged to eat especially after taking insulin Heart Score/ECG Review - ECG Impressions Comment:: 01/22/19 13:17 Twelve-lead EKG was performed and reviewed by me. Rate of 70 Accelerated junctional rhythm Nonspecific T wave changes
[2019-01-22 12:40] LABS: BASO % 0.6 % (0-2.0); EOS % 0.2 % (0-4.5); HEMATOCRIT 40.5 % (35.4-49); HEMOGLOBIN 13.4 GM/dL (11.7-16.9); LYMPH % 12.1 % (8-40); MCHC 33.1 g/dl (32.0-35.9); MEAN CELL VOLUME 87.7 fl (80-96); MEAN PLT VOLUME 9.1 fl (7.5-11.1); MONO % 5.5 % (3.8-10.2); NEUT % 81.6 % (42.8-82.8); PLATELET COUNT 178 K/MM3 (134-434); RBC 4.61 M/mm3 (4.00-5.60); RDW 14.4 % (11.9-15.9); WHITE BLOOD COUNT 4.7 K/mm3 (4.0-10.0)
--- NOTE | 2019-01-22 12:54 | PDOC ---
History of Present Illness - General Chief Complaint: Blood Sugar Problem Stated Complaint: BLOOD SUGAR IMBALANCE Time Seen by Provider: 01/22/19 10:34 - History of Present Illness Initial Comments: 01/22/19 13:38 64 y/o M hx of GA, HTN, HLD, CVA with residual left sided weakness, IDDM, presents to the ED with altered mental status. He is accompanied by his home health aide. Aide reports that she went to patients home, and he would not answer the door. upon hearing no response, she alerted EMS. On scene, his glucose was found to be 58. The patient was alert but visibly altered and less interactive than his baseline. On further questioning, pt can answer very few questions, but able to tell us he took his insulin last night without eating, and he took his oral diabetes medications this morning as well. Past History - Past Medical History Allergies/Adverse Reactions: Allergies Allergy/AdvReac Type Severity Reaction Status Date / Time No Known Allergies Allergy Verified 01/22/19 10:38 Home Medications: Ambulatory Orders Atorvastatin Ca [Lipitor] 80 mg PO DAILY 04/07/13 Cholecalciferol (Vitamin D3) [Vitamin D3] 1,000 unit PO DAILY 04/07/13 Terazosin HCl 5 mg PO DAILY 04/07/13 Clopidogrel Bisulfate [Plavix -] 75 mg PO DAILY 09/26/13 Insulin (Novolog 70/30) [Novolog Mix 70/30 Flexpen -] 42 units SQ ACBK 09/26/13 Insulin (Novolog 70/30) [Novolog Mix 70/30 Flexpen -] 45 units SQ HS 09/26/13 metFORMIN HCL [Metformin ER Osmotic] 500 mg PO DAILY 09/26/13 Acetaminophen [Tylenol .Regular Strength -] 650 mg PO Q6H PRN tablet 07/29/17 Clotrimazole/Betamet Diprop [Lotrisone -] 1 applic TP BID tube 07/29/17 Lisinopril [Prinivil] 2.5 mg PO DAILY tablet 07/29/17 Metoprolol Succinate [Toprol XL -] 25 mg PO DAILY tab.sr.24h 07/29/17 Methocarbamol [Robaxin -] 1,000 mg PO TID #30 tablet 09/30/18 Asthma: No Cardiac Disorders: Yes (1999 and 2006 GA's) CVA: Yes (2014- no residual, cva 2018) COPD: No CHF: No Diabetes: Yes GI Disorders: No Disorders: No HTN: Yes Hypercholesterolemia: Yes Seizures: No - Surgical History Abdominal Surgery: No Appendectomy: No Cardiac Surgery: No Cholecystectomy: No Lung Surgery: No Neurologic Surgery: No Orthopedic Surgery: Yes (R TKR and lower back surgery) - Reproductive History Testicular Surgery: No - Immunization History Immunization Up to Date: Yes - Psycho Social/Smoking Cessation Hx Smoking Status: No Smoking History: Never smoked Have you smoked in the past 12 months: No Number of Cigarettes Smoked Daily: 0 Information on smoking cessation initiated: No Hx Alcohol Use: No Drug/Substance Use Hx: No Substance Use Type: None Hx Substance Use Treatment: Yes Review of Systems - Review of Systems Comments:: 01/22/19 13:37 done after patient received dextrose. 01/22/19 13:38 Constitutional: No: Chills, Fever HEENTM: No: Eye Pain, Blurred Vision Respiratory: No: Cough, Shortness of Breath Cardiac (ROS): No: Chest Pain, Chest Tightness ABD/GI: No: Nausea, Vomiting : No: Burning, Dysuria Musculoskeletal: No: Back Pain, Joint Pain Integumentary: No: Bruising, Dryness Neurological: No: Headache, Dizziness *Physical Exam - Vital Signs Last Vital Signs Temp Pulse Resp BP Pulse Ox 97.8 F 62 18 112/68 98 01/22/19 10:36 01/22/19 10:36 01/22/19 10:36 01/22/19 10:36 01/22/19 10:38 - Physical Exam 01/22/19 13:35 PE: GENERAL: Alert and oriented to person only on arrival. responding verbally and coherent HEAD: No signs of trauma, normocephalic, atraumatic EYES: EOMI, sclera anicteric, conjunctiva clear ENT: Auricles normal inspection, hearing grossly normal, nares patent, oropharynx clear without exudates. Moist mucosa NECK: Normal ROM, supple, no lymphadenopathy, JVD, or masses LUNGS: No distress, speaks full sentences, clear to auscultation bilaterally HEART: Regular rate and rhythm, normal S1 and S2, no murmurs, rubs or gallops, peripheral pulses normal and equal bilaterally. ABDOMEN: Soft, nontender, normoactive bowel sounds. No guarding, no rebound. No masses EXTREMITIES : Normal inspection, Normal range of motion, no edema. No clubbing or cyanosis NEUROLOGICAL: Residual left sided weakness. no movement in left upper extremity. SKIN: Warm, Dry, normal turgor, no rashes or lesions noted ED Treatment Course - LABORATORY CBC & Chemistry Diagram: 01/22/19 12:28 01/22/19 11:10 - ADDITIONAL ORDERS Additional order review: Laboratory Results 01/22/19 01/22/19 01/22/19 11:28 11:10 11:10 PT with INR 15.70 H INR 1.33 H Sodium 143 Potassium 3.9 Chloride 108 H Carbon Dioxide 25 Anion Gap 9 BUN 13.3 Creatinine 0.9 Est GFR (CKD-EPI)AfAm 105.72 Est GFR (CKD-EPI)NonAf 91.22 POC Glucometer 222 Random Glucose 42 L* Calcium 8.9 Total Bilirubin 0.8 AST 17 ALT 26 Alkaline Phosphatase 67 Total Protein 7.3 Albumin 4.1 01/22/19 01/22/19 10:45 10:20 PT with INR INR Sodium Potassium Chloride Carbon Dioxide Anion Gap BUN Creatinine Est GFR (CKD-EPI)AfAm Est GFR (CKD-EPI)NonAf POC Glucometer 40 35 Random Glucose Calcium Total Bilirubin AST ALT Alkaline Phosphatase Total Protein Albumin 01/22/19 01/22/19 01/22/19 12:28 11:28 11:10 RBC 4.61 Cancelled MCV 87.7 Cancelled MCHC 33.1 Cancelled RDW 14.4 Cancelled MPV 9.1 Cancelled Neutrophils % 81.6 D Lymphocytes % 12.1 D Monocytes % 5.5 Eosinophils % 0.2 D Basophils % 0.6 POC Glucometer 222 01/22/19 01/22/19 10:45 10:20 RBC MCV MCHC RDW MPV Neutrophils % Lymphocytes % Monocytes % Eosinophils % Basophils % POC Glucometer 40 35 - RADIOLOGY Radiology Studies Ordered: Category Date Time Status CHEST X-RAY PORTABLE* [RAD] Stat Radiology 01/22/19 11:03 Completed - Medications Given in the ED: ED Medications Discontinued Medications Generic Name Dose Route Start Last Admin Trade Name Freq PRN Reason Stop Dose Admin Dextrose 50 gm 01/22/19 10:47 01/22/19 11:11 D50w (Vial) - IVPUSH 01/22/19 10:48 50 gm NOW ONE Administration Dextrose 25 gm 01/22/19 11:01 01/22/19 11:12 D50w (Vial) - IVPUSH 01/22/19 11:02 Not Given NOW ONE Medical Decision Making - Medical Decision Making 01/22/19 12:55 64 y/o M hx of GA, HTN, HLD, CVA with residual left sided weakness, IDDM, presents to the ED with altered mental status. glucose on arrival 40 mg/dl. patient given fruit juice, 1 amp d50 glucose as of 11:28 222 Pt more alert and oriented. sitting up in bed and interacting with staff. able to give a bit more history, denies any acute complaints. 01/22/19 12:57 CXR no evidence of active pulmonary disease 01/22/19 13:15 EKG: Accelerated junctional rhythm premature ventricular complexes, nonspecific T wave abnormality Pt back to baseline. can go home 01/22/19 13:42 01/22/19 13:43 01/23/19 19:40 Discharge - Discharge Information Problems reviewed: Yes Clinical Impression/Diagnosis: Hypoglycemia Condition: Stable Disposition: HOME - Admission No - Follow up/Referral Referrals: Anabel Montana MD [Primary Care Provider] - - Patient Discharge Instructions Patient Printed Discharge Instructions: DI for Hyperglycemia -- Adult Additional Instructions: It is important that you eat regular meals before taking your Insulin monitor blood glucose levels at home Follow up with your primary care doctor. - Post Discharge Activity
[2019-01-22 13:31] LABS: URINE APPEARANCE CLEAR; URINE BILIRUBIN NEGATIVE (NEGATIVE); URINE COLOR YELLOW; URINE GLUCOSE (UA) 3+ (NEGATIVE); URINE KETONE TRACE (NEGATIVE); URINE LEUK ESTERASE NEGATIVE (NEGATIVE); URINE NITRITE NEGATIVE (NEGATIVE); URINE PROTEIN NEGATIVE (NEGATIVE)
[2019-01-22 14:58] VITALS: BP 121/74; PULSE 68
--- NOTE | 2019-01-23 11:45 | EKG ---
Test Reason : Blood Pressure : / mmHG Vent. Rate : 070 BPM Atrial Rate : 066 BPM P-R Int : 000 ms QRS Dur : 090 ms QT Int : 444 ms P-R-T Axes : 000 -01 069 degrees QTc Int : 479 ms POOR DATA QUALITY, INTERPRETATION MAY BE ADVERSELY AFFECTED NORMAL SINUS RHYTHM NONSPECIFIC T WAVE ABNORMALITY ABNORMAL ECG Confirmed by TOMMY BROCK MD ([id number]) on 01/23/2019 11:45:19 AM Referred By: Confirmed By:TOMMY BROCK MD
== END 2019-01-22 15:59 | disposition home or self-care (01) ==
LOC: JER 10:05
PROC: 3E033GC Introduction of Other Therapeutic Substance into Peripheral Vein, Percutaneous Approach (ICD-10-PCS; principal; 2019-01-22)
DX: E11.649 Type 2 diabetes mellitus with hypoglycemia without coma (principal); I10 Essential (primary) hypertension; E78.00 Pure hypercholesterolemia, unspecified; E78.5 Hyperlipidemia, unspecified; Z86.73 Personal history of transient ischemic attack (TIA), and cerebral infarction without residual deficits; I25.2 Old myocardial infarction
CPT/HCPCS: 36415; 71045-TC-FY; 80053; 81003; 82550; 82553; 82962; 84484; 85025; 85610; 93005; 93010; 99284-25

== ENCOUNTER 2019-09-21 08:29 | Emergency (ER) | payer OTHER ==
[2019-09-21] MEDS ORDERED: DEXTROSE 50%-WATER - 25 GM/50 ML VIAL IVPUSH ONE (08:32)
--- NOTE | 2019-09-21 08:35 | PDOC ---
History of Present Illness - General Stated Complaint: SEVERE BACK PAIN Time Seen by Provider: 09/21/19 08:32 History Source: Patient, Old Records Exam Limitations: No Limitations - History of Present Illness Initial Comments: 09/21/19 08:34 Wes Baugh is a 64M with PMH NM, HTN, HLD, CVA with residual left sided weakness, IDDM, presents to the ED with hypoglycemia. Last visit to [facility] patient was found down by home health aide and with a BGM 40, discharge home after monitoring. Today patient says his home nurse sent him to [facility] ED for AMS and hypoglycemia. Denies LOC, MENSAH, chest pain, cough, SOB, abd pain, urinary symptoms, dizziness, N/V/C/D. Reports that he did not eat yesterday evening, but checked his BGM this AM, it was 117. Takes AM and PM insulin injections, took insulin this AM as well as AM meds, then ate a stack of pancakes. Currently denies any symptoms other than lower back and shoulder pain, which he describes as chronic, has been dealing with this pain for years, no different, has had lower back surgery at the [facility] 10 years ago. Denies numbness/tingling, weakness. Able to walk without issues. NKDA. Denies alcohol/drugs/tobacco. Past History - Medical History Allergies/Adverse Reactions: Allergies Allergy/AdvReac Type Severity Reaction Status Date / Time No Known Allergies Allergy Verified 09/21/19 08:38 Home Medications: Ambulatory Orders Atorvastatin Ca [Lipitor] 80 mg PO DAILY 04/07/13 Cholecalciferol (Vitamin D3) [Vitamin D3] 1,000 unit PO DAILY 04/07/13 Terazosin HCl 5 mg PO DAILY 04/07/13 Clopidogrel Bisulfate [Plavix -] 75 mg PO DAILY 09/26/13 Insulin (Novolog 70/30) [Novolog Mix 70/30 Flexpen -] 42 units SQ ACBK 09/26/13 Insulin (Novolog 70/30) [Novolog Mix 70/30 Flexpen -] 45 units SQ HS 09/26/13 metFORMIN HCL [Metformin ER Osmotic] 500 mg PO DAILY 09/26/13 Acetaminophen [Tylenol .Regular Strength -] 650 mg PO Q6H PRN tablet 07/29/17 Clotrimazole/Betamet Diprop [Lotrisone -] 1 applic TP BID tube 07/29/17 Lisinopril [Prinivil] 2.5 mg PO DAILY tablet 07/29/17 Metoprolol Succinate [Toprol XL -] 25 mg PO DAILY tab.sr.24h 07/29/17 Methocarbamol [Robaxin -] 1,000 mg PO TID #30 tablet 09/30/18 Asthma: No Cardiac Disorders: Yes (1999 and 2006 NM's) CVA: Yes (2014- no residual, cva 2017) COPD: No CHF: No Diabetes: Yes GI Disorders: No Disorders: No HTN: Yes Hypercholesterolemia: Yes Seizures: No - Surgical History Abdominal Surgery: No Appendectomy: No Cardiac Surgery: No Cholecystectomy: No Lung Surgery: No Neurologic Surgery: No Orthopedic Surgery: Yes (R TKR and lower back surgery) - Reproductive History Testicular Surgery: No - Immunization History Immunization Up to Date: Yes - Psycho-Social/Smoking History Smoking Status: No Smoking History: Never smoked Have you smoked in the past 12 months: No Number of Cigarettes Smoked Daily: 0 Review of Systems - Review of Systems Able to Perform ROS?: Yes Constitutional: No: Symptoms Reported HEENTM: No: Symptoms Reported Respiratory: No: Symptoms reported Cardiac (ROS): No: Symptoms Reported ABD/GI: No: Constipated, Diarrhea, Difficulty Swallowing, Nausea, Poor Appetite, Poor Fluid Intake, Vomiting : No: Symptoms Reported Musculoskeletal: Yes: Back Pain, Muscle Pain, Joint Stiffness Integumentary: No: Symptoms Reported Neurological: No: Symptoms reported Endocrine: No: Symptoms Reported Hematologic/Lymphatic: No: Symptoms Reported All Other Systems: Reviewed and Negative *Physical Exam - Physical Exam General Appearance: Yes: Nourished, Appropriately Dressed, Disheveled, Obese, Other (malodorous but alert and talkative). No: Apparent Distress HEENT: positive: EOMI, LAINA, Normal ENT Inspection, Normal Voice, Symmetrical, Pharynx Normal, Hearing Grossly Normal. negative: Scleral Icterus (R), Scleral Icterus (L), Pharyngeal Erythema, Tonsillar Exudate, Tonsillar Erythema Neck: positive: Trachea midline, Normal Thyroid, Supple. negative: Tender, Lymphadenopathy (R), Lymphadenopathy (L), Tender lateral, Tender midline Respiratory/Chest: positive: Lungs Clear, Normal Breath Sounds. negative: Chest Tender, Respiratory Distress, Accessory Muscle Use, Crackles, Rales, Rhonchi, S tridor, Wheezing Cardiovascular: positive: Regular Rhythm, Regular Rate Gastrointestinal/Abdominal: positive: Normal Bowel Sounds, Flat, Soft, Protube rent, Hernia (umbilical). negative: Tender Musculoskeletal: positive: Normal Inspection. negative: CVA Tenderness, CVA Tenderness (R), CVA Tenderness (L), Vertebral Tenderness Extremity: positive: Normal Capillary Refill, Normal Inspection, Normal Range of Motion, Pelvis Stable. negative: Tender Integumentary: positive: Normal Color, Dry, Warm Neurologic: positive: rounder and backer II-XII NML intact, Fully Oriented, Alert, Normal Mood/Affect, Normal Response, Motor Strength 5/5, Responsive. negative: Sensory Deficit ED Treatment Course - LABORATORY CBC & Chemistry Diagram: 09/21/19 08:38 09/21/19 08:38 Medical Decision Making - Medical Decision Making 09/21/19 10:10 Patient has history of hypoglycemia, NM, HTN, HLD, here for hypoglycemia and back pain. Patient complains of back and neck pain but this is the same pain he always has, does not take medications for this, and has a normal neurological exam. No chest pair, abd pain, or SOB. Concerned for infectious pathology such as UTI vs. PNA, ACS. Hypoglycemia concerning for liver/pancreatic patholgoy vs. insulin overdose. Mildly bradycardic but takes beta eduar. VSS otherwise. Ordering CBC/CMP/CP/ECG/UA/UC/CXR for broad evaluation. BGM 40, given amp D50. Improved to 68, giving PO sandwich and juice and Tylenol for pain control. Labs notable for: - CBC WNL - CP negative - glucose 41, but taken before D50 given - UA WNL CXR no acute pathology ECG NSR with HR 60, QTc 396, no MERRICK/D or TWI, artifact in V5 09/21/19 10:52 Getting repeat BGM after lunch. If normal, stable to be discharged home. 09/21/19 11:44 BGM 118, WNL. Patient awake and ready to go home. Patient stable for discharge home with PMD f/u and guidance on insulin use. Discharge - Discharge Information Problems reviewed: Yes Clinical Impression/Diagnosis: Hypoglycemia Back pain Qualifiers: Back pain location: low back pain Chronicity: chronic Back pain laterality: bilateral Sciatica presence: without sciatica Qualified Code(s): M54.5 - Low back pain Condition: Improved Disposition: INTERMEDIATE FACILITY - Admission No - Follow up/Referral - Patient Discharge Instructions Patient Printed Discharge Instructions: DI for Hypoglycemia Additional Instructions: Today you were evaluated for back pain and low blood sugar. At home, you need to take your insulin as prescribed, but you make be taking too much. You need to see your primary doctor for further care and diabetes management. Be mindful that you have to eat whenever you use insulin. If you have any weakness, fainting, chest pain, difficulty breathing, or any other new or concerning symptoms, please return to the emergency room. - Post Discharge Activity
[2019-09-21 08:47] VITALS: BMI 45.3
[2019-09-21 08:48] LABS: BASO % 0.4 % (0-2.0); EOS % 1.9 % (0-4.5); HEMOGLOBIN 11.6 GM/dL (11.7-16.9); LYMPH % 23.5 % (8-40); MCH 28.5 pg (25.7-33.7); MCHC 32.2 g/dl (32.0-35.9); MEAN CELL VOLUME 88.7 fl (80-96); MEAN PLT VOLUME 9.2 fl (7.5-11.1); MONO % 9.6 % (3.8-10.2); NEUT % 64.6 % (42.8-82.8); PLATELET COUNT 149 K/MM3 (134-434); RBC 4.06 M/mm3 (4.00-5.60); RDW 15.6 % (11.9-15.9); WHITE BLOOD COUNT 4.1 K/mm3 (4.0-10.0)
[2019-09-21 08:49] LABS: VENOUS BASE EXCESS -0.3 mmol/L (-2-2); VENOUS O2 SATURATION 59.7 % (70-80); VENOUS PCO2 47.9 mmHg (38-52); VENOUS PH 7.348 (7.310-7.410)
--- NOTE | 2019-09-21 09:28 | PDOC ---
Attending Attestation - Resident Resident Name: Vasiliy Bethea - ED Attending Attestation I have performed the following: I have examined & evaluated the patient, The case was reviewed & discussed with the resident, I agree w/resident's findings & plan - HPI HPI: 09/21/19 09:27 Wes Baugh is a 64M with PMH PA, HTN, HLD, CVA with residual left sided weakness, IDDM, presents to the ED with hypoglycemia. he is also c/o shoulder and back pain, which is his usual Last visit to [facility] patient was found down by home health aide and with a BGM 40, discharge home after monitoring. Today patient says his home nurse sent him to [facility] ED for AMS and hypoglycemia. Denies LOC, MENSAH, chest pain, cough, SOB, abd pain, urinary symptoms, dizziness, N/V/C/D. Reports that he did not eat yesterday evening, but checked his BGM this AM, it was 117. Takes AM and PM insulin injections, took insulin this AM as well as AM meds, then ate a stack of pancakes. Currently denies any symptoms other than lower back and shoulder pain, which he describes as chronic, has been dealing with this pain for years, no different, has had [facility] ago. Denies numbness/tingling, weakness. Able to walk without issues. 09/21/19 10:10 - Physicial Exam PE: 09/21/19 09:27 Agree with the resident's HPI and PE as documented in the electronic medical record. NAD, well appearing, EOMI, PERRL, nl conjunctiva, anicteric; neck supple. lungs clear, RRR, abdomen soft nontender. no rebound, guarding. Back minimal tenderness to lumbar region, but FROM. [facility] x4, no focal neuro deficits. No peripheral edema. normal color for ethnicity, WWP. 09/21/19 10:09 - Medical Decision Making 09/21/19 09:27 Vital Signs Temp Pulse Resp BP Pulse Ox 94.9 F L 56 L 16 105/75 100 09/21/19 08:35 09/21/19 08:35 09/21/19 08:35 09/21/19 08:35 09/21/19 08:35 vitals reviewed wnl, HD appropriate no infectious sx. neuro now at baseline, no AMS after tx. hypoglycemic given d50 ecg is sinus rhythm labs and lytes wnl glucose improved PO juice tolerated analgesia DC back to facility with aid 09/21/19 10:09 09/21/19 10:11 Heart Score/ECG Review #1 09/21/19 09:28 EKG normal sinus rhythm, no interval abnormalities, narrow QRS, ST and T wave segments and morphology normal. Nonspecific T wave abnormalities - ECG Intrepretation Rhythm: Regular Rhythm Discharge - Discharge Information Problems reviewed: Yes Clinical Impression/Diagnosis: Hypoglycemia, Back pain Condition: Improved Disposition: RETIREMENT FACILITY - Admission No - Follow up/Referral - Patient Discharge Instructions - Post Discharge Activity
[2019-09-21] MEDS ORDERED: SODIUM CHLORIDE 0.9% 500 ML INFUS.BAG IV ONE (09:37)
[2019-09-21 09:46] VITALS: TEMP 97.4
[2019-09-21 09:47] LABS: ALBUMIN 3.9 g/dl (3.4-5.0); ALK PHOS 51 U/L (45-117); ANION GAP 8 MMOL/L (8-16); BILIRUBIN,TOTAL 0.8 mg/dL (0.2-1); BLOOD UREA NITROGEN 13.6 mg/dL (7-18); CALCIUM 8.5 mg/dL (8.5-10.1); CHLORIDE 114 mmol/L (98-107); CO2 25 mmol/L (21-32); CREATININE 0.9 mg/dL (0.55-1.3); POTASSIUM 3.7 mmol/L (3.5-5.1); SGOT/AST 18 U/L (15-37); SGPT/ALT 30 U/L (13-61); SODIUM 146 mmol/L (136-145); TOT PROT 6.7 g/dl (6.4-8.2)
[2019-09-21] MEDS ORDERED: ACETAMINOPHEN 325 MG TABLET (FP) PO ONE (10:10)
[2019-09-21 10:17] LABS: URINE APPEARANCE CLEAR; URINE BILIRUBIN NEGATIVE (NEGATIVE); URINE COLOR YELLOW; URINE GLUCOSE (UA) TRACE (NEGATIVE); URINE KETONE NEGATIVE (NEGATIVE); URINE LEUK ESTERASE NEGATIVE (NEGATIVE); URINE NITRITE NEGATIVE (NEGATIVE); URINE PROTEIN NEGATIVE (NEGATIVE)
[2019-09-21 10:27] LABS: GLUCOSE,RANDOM 41 mg/dL (74-106)
[2019-09-21] MEDS ORDERED: ACETAMINOPHEN 325 MG TABLET (FP) ONE (10:30)
[2019-09-21 12:36] VITALS: BP 120/72; PULSE 57
--- NOTE | 2019-09-22 10:46 | EKG ---
Test Reason : Blood Pressure : / mmHG Vent. Rate : 060 BPM Atrial Rate : 060 BPM P-R Int : 180 ms QRS Dur : 078 ms QT Int : 396 ms P-R-T Axes : -21 037 016 degrees QTc Int : 396 ms POOR DATA QUALITY, INTERPRETATION MAY BE ADVERSELY AFFECTED NORMAL SINUS RHYTHM POSSIBLE ANTERIOR INFARCT , AGE UNDETERMINED ABNORMAL ECG WHEN COMPARED WITH ECG OF 22-JAN-2019 11:10, SINUS RHYTHM HAS REPLACED JUNCTIONAL RHYTHM QT HAS SHORTENED Confirmed by Anand Zuniga ([id number]) on 09/22/2019 10:45:54 AM Referred By: Confirmed By:Anand Zuniga
== END 2019-09-21 12:38 ==
LOC: JER 08:29
PROC: 3E013VG Introduction of Insulin into Subcutaneous Tissue, Percutaneous Approach (ICD-10-PCS; principal; 2019-09-21)
DX: E16.2 Hypoglycemia, unspecified (principal); M54.5 Low back pain
CPT/HCPCS: 36415; 71045-TC-FY; 80053; 81003; 82010; 82550; 82553; 82803; 82962; 84484; 85025; 87086; 93005; 93010; 99285-25

== ENCOUNTER 2020-04-04 18:06 | Emergency (ER) | payer OTHER ==
[2020-04-04 18:23] VITALS: TEMP 99.2; BMI 36.9
[2020-04-04] MEDS ORDERED: IBUPROFEN 600 MG TABLET (FP) PO ONE ×2 (21:18→22:30)
[2020-04-04 23:29] VITALS: BP 121/75; PULSE 88
== END 2020-04-04 23:35 | disposition home or self-care (01) ==
LOC: JERFT 18:06 → JER 18:06 → JERFT 23:35
DX: M25.512 Pain in left shoulder (principal)
CPT/HCPCS: 73030-TC-LT-FY; 99283-25

== ENCOUNTER 2020-06-14 19:58 | Inpatient (IN) | payer OTHER ==
[2020-06-14] MEDS ORDERED: diphenhydrAMINE HCL 25 MG CAPSULE (FP) PO ONE ×2 (20:30→20:45)
[2020-06-14] MEDS ORDERED: FAMOTIDINE 20 MG/50 ML IVPB 20 MG/50 ML MG IVPB ONE ×2 (20:40→20:46)
[2020-06-14] MEDS ORDERED: methylPREDNISolone NA SUCC 125 MG/2 ML VIAL IVPUSH ONE (20:40)
[2020-06-14] MEDS ORDERED: methylPREDNISolone NA SUCC 125 MG/2 ML VIAL ONE (20:46)
[2020-06-14 20:55] LABS: BASO % 0.7 % (0-2.0); HEMOGLOBIN 10.6 GM/dL (11.7-16.9); LYMPH % 28.1 % (8-40); MCHC 33.3 g/dl (32.0-35.9); MEAN CELL VOLUME 87.1 fl (80-96); MEAN PLT VOLUME 9.6 fl (7.5-11.1); MONO % 9.8 % (3.8-10.2); NEUT % 58.4 % (42.8-82.8); PLATELET COUNT 237 K/MM3 (134-434); RBC 3.67 M/mm3 (4.00-5.60); RDW 15.5 % (11.9-15.9); WHITE BLOOD COUNT 4.2 K/mm3 (4.0-10.0)
[2020-06-14 21:14] LABS: CHLORIDE 109 mmol/L (98-107); SODIUM 140 mmol/L (136-145)
[2020-06-14 21:15] LABS: CALCIUM 8.2 mg/dL (8.5-10.1)
[2020-06-14 21:16] LABS: ALBUMIN 3.4 g/dl (3.4-5.0); ANION GAP 7 MMOL/L (8-16); CO2 25 mmol/L (21-32); GLUCOSE,RANDOM 155 mg/dL (74-106)
[2020-06-14 21:19] LABS: SGOT/AST 9 U/L (15-37); SGPT/ALT 14 U/L (13-61)
[2020-06-14 21:20] LABS: BILIRUBIN,TOTAL 0.4 mg/dL (0.2-1); TOT PROT 6.2 g/dl (6.4-8.2)
[2020-06-14 21:22] LABS: ALK PHOS 65 U/L (45-117)
[2020-06-14 21:57] LABS: EPI CELLS 7 /uL (0-25.1); HYALINE CASTS 3 /uL (0-3.1); URINE APPEARANCE TURBID; URINE BACTERIA >9,000 /uL (0-1359); URINE BILIRUBIN NEGATIVE (NEGATIVE); URINE COLOR ORANGE; URINE GLUCOSE (UA) NEGATIVE (NEGATIVE); URINE KETONE NEGATIVE (NEGATIVE); URINE LEUK ESTERASE 3+ (NEGATIVE); URINE NITRITE POSITIVE (NEGATIVE); URINE PROTEIN 2+ (NEGATIVE); URINE WBC 2460 /uL (0-25.8)
[2020-06-14] MEDS ORDERED: CEFTRIAXONE 1 GM in DEXTROSE 5%-WATER - 100 ML IVPB ONE (22:14)
[2020-06-14] MEDS ORDERED: CEFTRIAXONE 1 GM/50 ML BAG ONE (22:24)
[2020-06-14 22:36] LABS: INR 1.39 (0.83-1.09); PROTHROMBIN TIME (PATIENT) 16.7 SEC (9.7-13.0)
[2020-06-14 22:39] LABS: ACTIVATED PTT 38.7 SECONDS (25.2-36.5)
[2020-06-15 00:07] LABS: URINE RBC 6835.3 /uL (0-23.9); YEAST NONE SEEN (NEGATIVE)
[2020-06-15 03:08] VITALS: BMI 27.6
[2020-06-15] MEDS: INSULIN SLIDING SCALE (NOVOLOG) 1 VIAL SQ SCH ×4 (06:25→21:55)
[2020-06-15 08:38] LABS: HEMATOCRIT 33.1 % (35.4-49); MCH 28.8 pg (25.7-33.7); MCHC 33.1 g/dl (32.0-35.9); MEAN PLT VOLUME 9.8 fl (7.5-11.1); PLATELET COUNT 249 K/MM3 (134-434); RDW 15.6 % (11.9-15.9); RETICULOCYTES 0.99 % (0.5-1.5); WHITE BLOOD COUNT 5.8 K/mm3 (4.0-10.0)
[2020-06-15 09:08] LABS: BLOOD UREA NITROGEN 21.2 mg/dL (7-18); CALCIUM 8.7 mg/dL (8.5-10.1); MAGNESIUM 1.8 mg/dL (1.8-2.4)
[2020-06-15 09:12] LABS: CREATININE 1.3 mg/dL (0.55-1.3); PHOSPHOROUS 2.3 mg/dL (2.5-4.9)
[2020-06-15] MEDS ORDERED: DEXTROSE 5%-WATER - 50 ML IVPB ONE (09:28)
[2020-06-15] MEDS ORDERED: cefTRIAXone SODIUM 1 GM VIAL ONE (09:28)
[2020-06-15] MEDS: LISINOPRIL 5 MG TABLET PO SCH (09:46)
[2020-06-15] MEDS: ASPIRIN COATED 81 MG TABLET.EC PO SCH (09:47)
[2020-06-15] MEDS: FERROUS SO4 325 MG TABLET (FP) PO SCH (09:47)
[2020-06-15] MEDS: CEFTRIAXONE 1 GM in DEXTROSE 5%-WATER - 50 ML IVPB SCH (09:47)
[2020-06-15] MEDS: LACTATED RINGERS SOLUTION 1,000 ML/1,000 ML INFUS.BAG IV SCH (14:01)
[2020-06-15] MEDS ORDERED: SODIUM ZIRCONIUM CYCLOSILICATE (LOKELMA) 5 GM PACKET PO ONE (14:15)
[2020-06-15] MEDS: ATORVASTATIN CA 80 MG TABLET (FP) PO SCH (21:46)
[2020-06-16] MEDS: INSULIN SLIDING SCALE (NOVOLOG) 1 VIAL SQ SCH ×4 (06:16→21:23)
[2020-06-16 08:48] LABS: BASO % 0.3 % (0-2.0); EOS % 0.1 % (0-4.5); HEMATOCRIT 32.6 % (35.4-49); LYMPH % 18.3 % (8-40); MCH 29.2 pg (25.7-33.7); MCHC 33.7 g/dl (32.0-35.9); MEAN CELL VOLUME 86.6 fl (80-96); MEAN PLT VOLUME 9.4 fl (7.5-11.1); MONO % 7.9 % (3.8-10.2); NEUT % 73.4 % (42.8-82.8); PLATELET COUNT 250 K/MM3 (134-434); RBC 3.76 M/mm3 (4.00-5.60); RDW 15.6 % (11.9-15.9); WHITE BLOOD COUNT 7.6 K/mm3 (4.0-10.0)
[2020-06-16 09:50] LABS: ALBUMIN 3.4 g/dl (3.4-5.0); BLOOD UREA NITROGEN 14.9 mg/dL (7-18); CALCIUM 8.5 mg/dL (8.5-10.1)
[2020-06-16 09:54] LABS: BILIRUBIN,TOTAL 0.5 mg/dL (0.2-1); CREATININE 0.8 mg/dL (0.55-1.3); TOT PROT 6.3 g/dl (6.4-8.2)
[2020-06-16] MEDS ORDERED: DEXTROSE 5%-WATER - 50 ML IVPB ONE (10:26)
[2020-06-16] MEDS ORDERED: cefTRIAXone SODIUM 1 GM VIAL ONE (10:26)
[2020-06-16] MEDS: LISINOPRIL 5 MG TABLET PO SCH (10:29)
[2020-06-16] MEDS: CEFTRIAXONE 1 GM in DEXTROSE 5%-WATER - 50 ML IVPB SCH (10:29)
[2020-06-16] MEDS: ASPIRIN COATED 81 MG TABLET.EC PO SCH (10:29)
[2020-06-16] MEDS: FERROUS SO4 325 MG TABLET (FP) PO SCH (10:29)
[2020-06-16] MEDS ORDERED: VANCOMYCIN 1 GRAM (PRE-DOCKED) 1,000 MG/250 ML BAG IVPB ONE (13:39)
[2020-06-16] MEDS: POLYETHYLENE GLYCOL 3350 119 GM BTL PO SCH (15:29)
[2020-06-16] MEDS: LACTATED RINGERS SOLUTION 1,000 ML/1,000 ML INFUS.BAG IV SCH (16:40)
[2020-06-16] MEDS ORDERED: INSULIN (NOVOLOG) ASPART 100 UNITS/ML 10ML VIAL ONE (16:41)
[2020-06-16] MEDS ORDERED: PIPERACILLIN/TAZOB 3.375 GM 3.375 GM in DEXTROSE 5%-WATER - 50 ML IVPB SCH (18:00)
[2020-06-16] MEDS: ATORVASTATIN CA 80 MG TABLET (FP) PO SCH (21:19)
[2020-06-17] MEDS: INSULIN SLIDING SCALE (NOVOLOG) 1 VIAL SQ SCH ×4 (06:13→21:41)
[2020-06-17 08:41] LABS: EOS % 2.3 % (0-4.5); HEMATOCRIT 31.5 % (35.4-49); HEMOGLOBIN 10.4 GM/dL (11.7-16.9); LYMPH % 29.9 % (8-40); MCH 28.8 pg (25.7-33.7); MCHC 33.2 g/dl (32.0-35.9); MEAN CELL VOLUME 86.8 fl (80-96); MEAN PLT VOLUME 9.5 fl (7.5-11.1); MONO % 9.1 % (3.8-10.2); NEUT % 57.7 % (42.8-82.8); PLATELET COUNT 242 K/MM3 (134-434); RBC 3.63 M/mm3 (4.00-5.60); RDW 15.5 % (11.9-15.9); WHITE BLOOD COUNT 5.3 K/mm3 (4.0-10.0)
[2020-06-17 09:06] LABS: ALBUMIN 3.2 g/dl (3.4-5.0); BLOOD UREA NITROGEN 13.2 mg/dL (7-18); CALCIUM 8.5 mg/dL (8.5-10.1); MAGNESIUM 1.6 mg/dL (1.8-2.4)
[2020-06-17 09:08] LABS: CREATININE 0.8 mg/dL (0.55-1.3)
[2020-06-17 09:09] LABS: PHOSPHOROUS 2.7 mg/dL (2.5-4.9)
[2020-06-17 09:11] LABS: BILIRUBIN,TOTAL 0.4 mg/dL (0.2-1); TOT PROT 6.1 g/dl (6.4-8.2)
[2020-06-17] MEDS ORDERED: cefTRIAXone SODIUM 1 GM VIAL ONE (09:45)
[2020-06-17] MEDS ORDERED: DEXTROSE 5%-WATER - 50 ML IVPB ONE (09:45)
[2020-06-17] MEDS ORDERED: PT OWN MED DRAWER 7, Y5N ONE (09:46)
[2020-06-17] MEDS: CEFTRIAXONE 1 GM in DEXTROSE 5%-WATER - 50 ML IVPB SCH (10:06)
[2020-06-17] MEDS: ASPIRIN COATED 81 MG TABLET.EC PO SCH (10:09)
[2020-06-17] MEDS: LISINOPRIL 5 MG TABLET PO SCH (10:09)
[2020-06-17] MEDS: FERROUS SO4 325 MG TABLET (FP) PO SCH (10:10)
[2020-06-17] MEDS: POLYETHYLENE GLYCOL 3350 119 GM BTL PO SCH (10:11)
[2020-06-17] MEDS: diphenhydrAMINE HCL 25 MG CAPSULE (FP) PO SCH ×2 (10:46→21:41)
[2020-06-17] MEDS ORDERED: LACTULOSE 20 GM/30 ML UDC (FOR ORAL USE ONLY) PO PRN (11:57)
[2020-06-17] MEDS ORDERED: MAGNESIUM SULF 50% (8.12 MEQ/2 ML-1 GM VIAL) IVPB ONE (14:15)
[2020-06-17] MEDS: LACTATED RINGERS SOLUTION 1,000 ML/1,000 ML INFUS.BAG IV SCH (16:57)
[2020-06-17] MEDS: HEPARIN NA (PORCINE) 5,000 UNITS/ML 1ML VIAL SQ SCH ×2 (16:57→21:41)
[2020-06-17] MEDS: ATORVASTATIN CA 80 MG TABLET (FP) PO SCH (21:41)
[2020-06-18] MEDS: INSULIN SLIDING SCALE (NOVOLOG) 1 VIAL SQ SCH ×4 (06:44→22:41)
[2020-06-18 08:31] LABS: BASO % 1.2 % (0-2.0); EOS % 3.4 % (0-4.5); HEMOGLOBIN 10.4 GM/dL (11.7-16.9); LYMPH % 30.4 % (8-40); MCHC 33.5 g/dl (32.0-35.9); MEAN CELL VOLUME 86.4 fl (80-96); MEAN PLT VOLUME 9.7 fl (7.5-11.1); MONO % 9.9 % (3.8-10.2); NEUT % 55.1 % (42.8-82.8); PLATELET COUNT 230 K/MM3 (134-434); RBC 3.59 M/mm3 (4.00-5.60); RDW 15.4 % (11.9-15.9); WHITE BLOOD COUNT 5.2 K/mm3 (4.0-10.0)
[2020-06-18 08:57] LABS: CALCIUM 8.1 mg/dL (8.5-10.1)
[2020-06-18 08:58] LABS: ALBUMIN 3.1 g/dl (3.4-5.0); BLOOD UREA NITROGEN 12.3 mg/dL (7-18)
[2020-06-18 09:01] LABS: CREATININE 0.8 mg/dL (0.55-1.3)
[2020-06-18 09:03] LABS: BILIRUBIN,TOTAL 0.5 mg/dL (0.2-1); TOT PROT 5.9 g/dl (6.4-8.2)
[2020-06-18] MEDS ORDERED: cefTRIAXone SODIUM 1 GM VIAL ONE (09:16)
[2020-06-18] MEDS ORDERED: DEXTROSE 5%-WATER - 50 ML IVPB ONE (09:17)
[2020-06-18] MEDS: LACTATED RINGERS SOLUTION 1,000 ML/1,000 ML INFUS.BAG IV SCH ×3 (09:35→22:40)
[2020-06-18] MEDS: CEFTRIAXONE 1 GM in DEXTROSE 5%-WATER - 50 ML IVPB SCH (09:36)
[2020-06-18] MEDS: LISINOPRIL 5 MG TABLET PO SCH (09:36)
[2020-06-18] MEDS: FERROUS SO4 325 MG TABLET (FP) PO SCH (09:36)
[2020-06-18] MEDS: LACTULOSE 20 GM/30 ML UDC (FOR ORAL USE ONLY) PO SCH ×3 (09:36→22:40)
[2020-06-18] MEDS: POLYETHYLENE GLYCOL 3350 119 GM BTL PO SCH (09:36)
[2020-06-18] MEDS: ASPIRIN COATED 81 MG TABLET.EC PO SCH (09:36)
[2020-06-18] MEDS: HEPARIN NA (PORCINE) 5,000 UNITS/ML 1ML VIAL SQ SCH ×2 (09:37→22:40)
[2020-06-18 15:45] LABS: MAGNESIUM 1.8 mg/dL (1.8-2.4)
[2020-06-18] MEDS ORDERED: INSULIN (NOVOLOG) ASPART 100 UNITS/ML 10ML VIAL ONE (19:03)
[2020-06-18] MEDS: ATORVASTATIN CA 80 MG TABLET (FP) PO SCH (22:41)
[2020-06-19] MEDS: LACTULOSE 20 GM/30 ML UDC (FOR ORAL USE ONLY) PO SCH ×3 (05:54→21:49)
[2020-06-19] MEDS: INSULIN SLIDING SCALE (NOVOLOG) 1 VIAL SQ SCH ×4 (06:01→21:49)
[2020-06-19] MEDS ORDERED: DEXTROSE 5%-WATER - 50 ML IVPB ONE (09:43)
[2020-06-19] MEDS ORDERED: cefTRIAXone SODIUM 1 GM VIAL ONE (09:43)
[2020-06-19] MEDS ORDERED: diphenhydrAMINE HCL 25 MG CAPSULE (FP) PO ONE (09:45)
[2020-06-19] MEDS: ASPIRIN COATED 81 MG TABLET.EC PO SCH (10:02)
[2020-06-19] MEDS: CEFTRIAXONE 1 GM in DEXTROSE 5%-WATER - 50 ML IVPB SCH (10:02)
[2020-06-19] MEDS: LISINOPRIL 5 MG TABLET PO SCH (10:03)
[2020-06-19] MEDS: FERROUS SO4 325 MG TABLET (FP) PO SCH (10:03)
[2020-06-19] MEDS: POLYETHYLENE GLYCOL 3350 119 GM BTL PO SCH (10:04)
[2020-06-19] MEDS: HEPARIN NA (PORCINE) 5,000 UNITS/ML 1ML VIAL SQ SCH ×2 (10:05→21:46)
[2020-06-19] MEDS: SENNOSIDES 8.6MG TABLET (FP) PO SCH ×2 (13:47→21:49)
[2020-06-19] MEDS ORDERED: INSULIN (NOVOLOG) ASPART 100 UNITS/ML 10ML VIAL ONE (21:29)
[2020-06-19] MEDS: ATORVASTATIN CA 80 MG TABLET (FP) PO SCH (21:49)
[2020-06-20] MEDS: LACTULOSE 20 GM/30 ML UDC (FOR ORAL USE ONLY) PO SCH ×3 (06:09→21:29)
[2020-06-20] MEDS: INSULIN SLIDING SCALE (NOVOLOG) 1 VIAL SQ SCH ×4 (06:10→21:31)
[2020-06-20] MEDS ORDERED: cefTRIAXone SODIUM 1 GM VIAL ONE (09:37)
[2020-06-20] MEDS ORDERED: DEXTROSE 5%-WATER - 50 ML IVPB ONE (09:37)
[2020-06-20] MEDS: LISINOPRIL 5 MG TABLET PO SCH (09:39)
[2020-06-20] MEDS: HEPARIN NA (PORCINE) 5,000 UNITS/ML 1ML VIAL SQ SCH ×2 (09:39→21:29)
[2020-06-20] MEDS: FERROUS SO4 325 MG TABLET (FP) PO SCH (09:40)
[2020-06-20] MEDS: CEFTRIAXONE 1 GM in DEXTROSE 5%-WATER - 50 ML IVPB SCH (09:40)
[2020-06-20] MEDS: ASPIRIN COATED 81 MG TABLET.EC PO SCH (09:40)
[2020-06-20] MEDS: SENNOSIDES 8.6MG TABLET (FP) PO SCH ×2 (09:40→21:29)
[2020-06-20] MEDS: POLYETHYLENE GLYCOL 3350 119 GM BTL PO SCH (09:41)
[2020-06-20 10:35] LABS: ALBUMIN 3.2 g/dl (3.4-5.0); BLOOD UREA NITROGEN 10.1 mg/dL (7-18); CALCIUM 8.3 mg/dL (8.5-10.1); MAGNESIUM 1.7 mg/dL (1.8-2.4)
[2020-06-20 10:38] LABS: CREATININE 0.8 mg/dL (0.55-1.3)
[2020-06-20 10:40] LABS: BILIRUBIN,TOTAL 0.5 mg/dL (0.2-1); TOT PROT 5.9 g/dl (6.4-8.2)
[2020-06-20] MEDS ORDERED: MINERAL OIL ENEMA 133 ML ENEMA PR ONE (13:05)
[2020-06-20] MEDS: ATORVASTATIN CA 80 MG TABLET (FP) PO SCH (21:29)
[2020-06-21] MEDS ORDERED: ACETAMINOPHEN 325 MG TABLET (FP) PO PRN (03:50)
[2020-06-21] MEDS ORDERED: ACETAMINOPHEN 1000 MG/100 ML VIAL (NON FORMULARY) IVPB ONE (03:50)
[2020-06-21] MEDS: LACTULOSE 20 GM/30 ML UDC (FOR ORAL USE ONLY) PO SCH ×5 (06:05→21:14)
[2020-06-21] MEDS: INSULIN SLIDING SCALE (NOVOLOG) 1 VIAL SQ SCH ×4 (06:09→21:09)
[2020-06-21 08:24] LABS: HEMATOCRIT 31.2 % (35.4-49); HEMOGLOBIN 10.4 GM/dL (11.7-16.9); MCHC 33.2 g/dl (32.0-35.9); MEAN CELL VOLUME 87.3 fl (80-96); MEAN PLT VOLUME 9.5 fl (7.5-11.1); PLATELET COUNT 220 K/MM3 (134-434); RBC 3.57 M/mm3 (4.00-5.60)
[2020-06-21 08:47] LABS: CALCIUM 8.2 mg/dL (8.5-10.1)
[2020-06-21 08:48] LABS: BLOOD UREA NITROGEN 10.2 mg/dL (7-18); MAGNESIUM 1.7 mg/dL (1.8-2.4)
[2020-06-21 08:51] LABS: CREATININE 0.8 mg/dL (0.55-1.3)
[2020-06-21] MEDS ORDERED: MAGNESIUM SULF 50% (8.12 MEQ/2 ML-1 GM VIAL) IVPB ONE (10:15)
[2020-06-21] MEDS ORDERED: cefTRIAXone SODIUM 1 GM VIAL ONE (10:25)
[2020-06-21] MEDS ORDERED: DEXTROSE 5%-WATER - 50 ML IVPB ONE (10:26)
[2020-06-21] MEDS: CEFTRIAXONE 1 GM in DEXTROSE 5%-WATER - 50 ML IVPB SCH (10:34)
[2020-06-21] MEDS: FERROUS SO4 325 MG TABLET (FP) PO SCH (10:35)
[2020-06-21] MEDS: POLYETHYLENE GLYCOL 3350 119 GM BTL PO SCH (10:35)
[2020-06-21] MEDS: LISINOPRIL 5 MG TABLET PO SCH (10:35)
[2020-06-21] MEDS: HEPARIN NA (PORCINE) 5,000 UNITS/ML 1ML VIAL SQ SCH ×2 (10:35→21:07)
[2020-06-21] MEDS: ASPIRIN COATED 81 MG TABLET.EC PO SCH (10:35)
[2020-06-21] MEDS: SENNOSIDES 8.6MG TABLET (FP) PO SCH ×2 (10:36→21:07)
[2020-06-21] MEDS: ATORVASTATIN CA 80 MG TABLET (FP) PO SCH (21:07)
[2020-06-22] MEDS: LACTULOSE 20 GM/30 ML UDC (FOR ORAL USE ONLY) PO SCH ×3 (05:42→21:53)
[2020-06-22] MEDS: INSULIN SLIDING SCALE (NOVOLOG) 1 VIAL SQ SCH ×4 (06:00→21:54)
[2020-06-22 08:30] LABS: HEMATOCRIT 31.5 % (35.4-49); HEMOGLOBIN 10.5 GM/dL (11.7-16.9); MCH 28.9 pg (25.7-33.7); MCHC 33.3 g/dl (32.0-35.9); MEAN CELL VOLUME 86.8 fl (80-96); MEAN PLT VOLUME 9.5 fl (7.5-11.1); PLATELET COUNT 218 K/MM3 (134-434); RBC 3.63 M/mm3 (4.00-5.60); RDW 15.7 % (11.9-15.9); WHITE BLOOD COUNT 6.2 K/mm3 (4.0-10.0)
[2020-06-22 09:18] LABS: CALCIUM 8.1 mg/dL (8.5-10.1)
[2020-06-22 09:19] LABS: BLOOD UREA NITROGEN 12.6 mg/dL (7-18); MAGNESIUM 1.9 mg/dL (1.8-2.4)
[2020-06-22 09:22] LABS: CREATININE 0.9 mg/dL (0.55-1.3); PHOSPHOROUS 2.9 mg/dL (2.5-4.9)
[2020-06-22] MEDS ORDERED: cefTRIAXone SODIUM 1 GM VIAL ONE (09:40)
[2020-06-22] MEDS ORDERED: DEXTROSE 5%-WATER - 50 ML IVPB ONE (09:40)
[2020-06-22] MEDS: CEFTRIAXONE 1 GM in DEXTROSE 5%-WATER - 50 ML IVPB SCH (09:44)
[2020-06-22] MEDS: LISINOPRIL 5 MG TABLET PO SCH (09:45)
[2020-06-22] MEDS: SENNOSIDES 8.6MG TABLET (FP) PO SCH ×2 (09:45→21:53)
[2020-06-22] MEDS: FERROUS SO4 325 MG TABLET (FP) PO SCH (09:45)
[2020-06-22] MEDS: ASPIRIN COATED 81 MG TABLET.EC PO SCH (09:45)
[2020-06-22] MEDS: HEPARIN NA (PORCINE) 5,000 UNITS/ML 1ML VIAL SQ SCH ×2 (09:46→21:53)
[2020-06-22] MEDS: POLYETHYLENE GLYCOL 3350 119 GM BTL PO SCH (09:46)
[2020-06-22] MEDS: ATORVASTATIN CA 80 MG TABLET (FP) PO SCH (21:53)
[2020-06-23] MEDS: INSULIN SLIDING SCALE (NOVOLOG) 1 VIAL SQ SCH ×2 (06:33→11:52)
[2020-06-23] MEDS: LACTULOSE 20 GM/30 ML UDC (FOR ORAL USE ONLY) PO SCH ×2 (06:33→13:35)
[2020-06-23] MEDS ORDERED: DEXTROSE 5%-WATER - 50 ML IVPB ONE (09:09)
[2020-06-23] MEDS ORDERED: cefTRIAXone SODIUM 1 GM VIAL ONE (09:09)
[2020-06-23] MEDS: HEPARIN NA (PORCINE) 5,000 UNITS/ML 1ML VIAL SQ SCH (09:19)
[2020-06-23] MEDS: LISINOPRIL 5 MG TABLET PO SCH (09:19)
[2020-06-23] MEDS: FERROUS SO4 325 MG TABLET (FP) PO SCH (09:19)
[2020-06-23] MEDS: SENNOSIDES 8.6MG TABLET (FP) PO SCH (09:19)
[2020-06-23] MEDS: ASPIRIN COATED 81 MG TABLET.EC PO SCH (09:19)
[2020-06-23] MEDS: CEFTRIAXONE 1 GM in DEXTROSE 5%-WATER - 50 ML IVPB SCH (09:22)
[2020-06-23] MEDS: POLYETHYLENE GLYCOL 3350 119 GM BTL PO SCH (09:23)
[2020-06-23 14:16] VITALS: BP 118/67; PULSE 57; TEMP 98.8
== END 2020-06-23 15:25 | disposition home or self-care (01) | DRG 463 ==
LOC: JER 19:58 → JERBED 22:25 → J6S 06-15 02:14
PROVIDERS: ADMIT Internal Medicine; ATTEND Internal Medicine
DX: N39.0 Urinary tract infection, site not specified (principal); I69.354 Hemiplegia and hemiparesis following cerebral infarction affecting left non-dominant side; E83.51 Hypocalcemia; R15.9 Full incontinence of feces; N32.89 Other specified disorders of bladder; R31.9 Hematuria, unspecified; E11.65 Type 2 diabetes mellitus with hyperglycemia; E87.5 Hyperkalemia; K40.90 Unilateral inguinal hernia, without obstruction or gangrene, not specified as recurrent; E78.00 Pure hypercholesterolemia, unspecified; I25.10 Atherosclerotic heart disease of native coronary artery without angina pectoris; Z96.652 Presence of left artificial knee joint; E66.9 Obesity, unspecified; Z68.27 Body mass index [BMI] 27.0-27.9, adult; D64.9 Anemia, unspecified; E83.42 Hypomagnesemia; M17.0 Bilateral primary osteoarthritis of knee; K59.09 Other constipation; I10 Essential (primary) hypertension; B96.1 Klebsiella pneumoniae [K. pneumoniae] as the cause of diseases classified elsewhere; L50.9 Urticaria, unspecified
CPT/HCPCS: 36415; 74018-TC-FY; 74176-TC; 76856-TC; 80048; 80053; 81003; 82550; 82570; 82728; 82962; 83036; 83540; 83550; 83605; 83735; 84100; 84156; 84484; 85025; 85027; 85045; 85610; 85730; 86850; 86900; 86901; 87040; 87086; 87186; 93005; 93010; 93306-TC; 97116-GP; 97162-GP; 99285-25; C9803; J1644; U0003; U0005

== ENCOUNTER 2020-07-16 16:36 | Inpatient (IN) | payer OTHER ==
[2020-07-16 17:30] LABS: BASO % 1.1 % (0-2.0); EOS % 2.8 % (0-4.5); HEMATOCRIT 35.8 % (35.4-49); HEMOGLOBIN 11.9 GM/dL (11.7-16.9); LYMPH % 30.9 % (8-40); MCH 29.1 pg (25.7-33.7); MCHC 33.2 g/dl (32.0-35.9); MEAN CELL VOLUME 87.5 fl (80-96); MEAN PLT VOLUME 10.3 fl (7.5-11.1); MONO % 7.7 % (3.8-10.2); NEUT % 57.5 % (42.8-82.8); PLATELET COUNT 203 K/MM3 (134-434); RDW 16.6 % (11.9-15.9); WHITE BLOOD COUNT 5.3 K/mm3 (4.0-10.0)
[2020-07-16] MEDS ORDERED: ACETAMINOPHEN 325 MG TABLET (FP) PO ONE (17:32)
[2020-07-16 17:46] LABS: CHLORIDE 109 mmol/L (98-107); SODIUM 138 mmol/L (136-145)
[2020-07-16 17:48] LABS: CALCIUM 7.7 mg/dL (8.5-10.1)
[2020-07-16 17:49] LABS: ALBUMIN 3.7 g/dl (3.4-5.0); BLOOD UREA NITROGEN 15.1 mg/dL (7-18); CO2 23 mmol/L (21-32); GLUCOSE,RANDOM 63 mg/dL (74-106); LIPASE < 10 U/L (73-393); MAGNESIUM 1.4 mg/dL (1.8-2.4)
[2020-07-16 17:53] LABS: BILIRUBIN,TOTAL 0.5 mg/dL (0.2-1); TOT PROT 7.9 g/dl (6.4-8.2)
[2020-07-16] MEDS ORDERED: ACETAMINOPHEN 325 MG TABLET (FP) ONE (17:53)
[2020-07-16 17:55] LABS: ALK PHOS 68 U/L (45-117)
[2020-07-16] MEDS ORDERED: MAGNESIUM SULF 50% (8.12 MEQ/2 ML-1 GM VIAL) IVPB ONE (18:02)
[2020-07-16] MEDS ORDERED: MAGNESIUM SULFATE IN WATER 2 GM/50 ML IVPB IVPB ONE (18:05)
[2020-07-16 18:08] LABS: PH,URINE 5.5 (5.0-8.0); URINE APPEARANCE CLEAR; URINE BILIRUBIN NEGATIVE (NEGATIVE); URINE COLOR YELLOW; URINE GLUCOSE (UA) NEGATIVE (NEGATIVE); URINE KETONE TRACE (NEGATIVE); URINE LEUK ESTERASE NEGATIVE (NEGATIVE); URINE NITRITE NEGATIVE (NEGATIVE); URINE PROTEIN NEGATIVE (NEGATIVE)
[2020-07-16 18:21] LABS: ANION GAP 6 MMOL/L (8-16); SGOT/AST 78 U/L (15-37); SGPT/ALT 25 U/L (13-61)
[2020-07-16 19:14] LABS: LACTIC ACID 3.6 mmol/L (0.4-2.0)
[2020-07-16] MEDS ORDERED: LACTATED RINGERS SOLUTION 1000 ML INFUS.BAG IV ONE (20:31)
[2020-07-16] MEDS ORDERED: LACTATED RINGERS SOLUTION 1,000 ML IV STA (20:32)
[2020-07-16] MEDS ORDERED: ACETAMINOPHEN 1000 MG/100 ML VIAL (NON FORMULARY) IVPB PRN (22:20)
[2020-07-16 23:15] LABS: LACTIC ACID 2.2 mmol/L (0.4-2.0)
[2020-07-17] MEDS: LACTATED RINGERS SOLUTION 1,000 ML IV SCH ×3 (02:00→22:34)
[2020-07-17 02:32] VITALS: BMI 28.2
[2020-07-17 08:36] LABS: BASO % 0.8 % (0-2.0); EOS % 2.7 % (0-4.5); HEMATOCRIT 30.5 % (35.4-49); HEMOGLOBIN 10.4 GM/dL (11.7-16.9); LYMPH % 28.3 % (8-40); MCH 29.6 pg (25.7-33.7); MCHC 34.3 g/dl (32.0-35.9); MEAN CELL VOLUME 86.4 fl (80-96); MEAN PLT VOLUME 9.4 fl (7.5-11.1); MONO % 10.6 % (3.8-10.2); NEUT % 57.6 % (42.8-82.8); PLATELET COUNT 160 K/MM3 (134-434); RBC 3.53 M/mm3 (4.00-5.60); RDW 16.3 % (11.9-15.9); WHITE BLOOD COUNT 4.1 K/mm3 (4.0-10.0)
[2020-07-17 09:17] LABS: CALCIUM 7.4 mg/dL (8.5-10.1)
[2020-07-17 09:18] LABS: ALBUMIN 3.4 g/dl (3.4-5.0); BLOOD UREA NITROGEN 8.4 mg/dL (7-18); MAGNESIUM 1.4 mg/dL (1.8-2.4)
[2020-07-17 09:21] LABS: CREATININE 0.5 mg/dL (0.55-1.3); PHOSPHOROUS 2.6 mg/dL (2.5-4.9)
[2020-07-17 09:23] LABS: TOT PROT 5.9 g/dl (6.4-8.2)
[2020-07-17 09:24] LABS: BILIRUBIN,TOTAL 0.7 mg/dL (0.2-1)
[2020-07-17] MEDS ORDERED: MAGNESIUM OXIDE 400 MG TABLET (FP) PO ONE (10:28)
[2020-07-17] MEDS: INSULIN SLIDING SCALE (NOVOLOG) 1 VIAL SQ SCH ×3 (11:11→21:33)
[2020-07-17] MEDS ORDERED: INSULIN (NOVOLOG) ASPART 100 UNITS/ML 10ML VIAL ONE ×2 (17:07→20:55)
[2020-07-17] MEDS ORDERED: SENNOSIDES 8.6MG TABLET (FP) PO PRN (18:42)
[2020-07-17] MEDS: DOCUSATE SODIUM 100 MG CAPSULE (FP) PO SCH (21:25)
[2020-07-17] MEDS: HEPARIN NA (PORCINE) 5,000 UNITS/ML 1ML VIAL SQ SCH (21:25)
[2020-07-18] MEDS: INSULIN SLIDING SCALE (NOVOLOG) 1 VIAL SQ SCH ×4 (05:59→21:39)
[2020-07-18] MEDS: LACTATED RINGERS SOLUTION 1,000 ML IV SCH ×3 (06:33→22:26)
[2020-07-18 08:50] LABS: HEMATOCRIT 31.4 % (35.4-49); HEMOGLOBIN 10.7 GM/dL (11.7-16.9); LYMPH % 26.9 % (8-40); MCH 29.6 pg (25.7-33.7); MCHC 34.1 g/dl (32.0-35.9); MEAN CELL VOLUME 86.9 fl (80-96); MEAN PLT VOLUME 9.7 fl (7.5-11.1); MONO % 9.9 % (3.8-10.2); NEUT % 60.2 % (42.8-82.8); PLATELET COUNT 177 K/MM3 (134-434); RBC 3.61 M/mm3 (4.00-5.60); RDW 16.4 % (11.9-15.9); WHITE BLOOD COUNT 3.9 K/mm3 (4.0-10.0)
[2020-07-18 08:56] LABS: INR 1.09 (0.83-1.09); PROTHROMBIN TIME (PATIENT) 13.1 SEC (9.7-13.0)
[2020-07-18 09:07] LABS: ALBUMIN 3.3 g/dl (3.4-5.0)
[2020-07-18 09:08] LABS: MAGNESIUM 1.5 mg/dL (1.8-2.4)
[2020-07-18 09:10] LABS: BLOOD UREA NITROGEN 6.7 mg/dL (7-18)
[2020-07-18 09:11] LABS: CREATININE 0.6 mg/dL (0.55-1.3)
[2020-07-18 09:12] LABS: TOT PROT 5.9 g/dl (6.4-8.2)
[2020-07-18 09:16] LABS: BILIRUBIN,TOTAL 0.7 mg/dL (0.2-1)
[2020-07-18] MEDS: LISINOPRIL 5 MG TABLET PO SCH (10:05)
[2020-07-18] MEDS: DOCUSATE SODIUM 100 MG CAPSULE (FP) PO SCH ×2 (10:05→21:38)
[2020-07-18] MEDS: HEPARIN NA (PORCINE) 5,000 UNITS/ML 1ML VIAL SQ SCH ×2 (10:05→21:34)
[2020-07-18] MEDS: ATORVASTATIN CA 80 MG TABLET (FP) PO SCH (10:05)
[2020-07-18] MEDS ORDERED: INSULIN (NOVOLOG) ASPART 100 UNITS/ML 10ML VIAL ONE (21:31)
[2020-07-19] MEDS: INSULIN SLIDING SCALE (NOVOLOG) 1 VIAL SQ SCH ×4 (06:41→21:28)
[2020-07-19 08:27] LABS: INR 0.97 (0.83-1.09); PROTHROMBIN TIME (PATIENT) 11.9 SEC (9.7-13.0)
[2020-07-19 08:40] LABS: ALBUMIN 3.4 g/dl (3.4-5.0)
[2020-07-19 08:41] LABS: BLOOD UREA NITROGEN 6.6 mg/dL (7-18); CALCIUM 8.2 mg/dL (8.5-10.1); MAGNESIUM 1.7 mg/dL (1.8-2.4)
[2020-07-19 08:44] LABS: CREATININE 0.7 mg/dL (0.55-1.3)
[2020-07-19 08:45] LABS: BILIRUBIN,TOTAL 0.7 mg/dL (0.2-1)
[2020-07-19 08:48] LABS: BASO % 0.9 % (0-2.0); EOS % 3.3 % (0-4.5); HEMOGLOBIN 10.6 GM/dL (11.7-16.9); LYMPH % 27.8 % (8-40); MCH 28.8 pg (25.7-33.7); MCHC 33.1 g/dl (32.0-35.9); MEAN CELL VOLUME 87.1 fl (80-96); MEAN PLT VOLUME 9.7 fl (7.5-11.1); MONO % 10.4 % (3.8-10.2); NEUT % 57.6 % (42.8-82.8); PLATELET COUNT 181 K/MM3 (134-434); RBC 3.68 M/mm3 (4.00-5.60); RDW 16.6 % (11.9-15.9); WHITE BLOOD COUNT 3.5 K/mm3 (4.0-10.0)
[2020-07-19] MEDS ORDERED: INSULIN (NOVOLOG) ASPART 100 UNITS/ML 10ML VIAL ONE (10:43)
[2020-07-19] MEDS: DOCUSATE SODIUM 100 MG CAPSULE (FP) PO SCH ×2 (10:56→21:24)
[2020-07-19] MEDS: ATORVASTATIN CA 80 MG TABLET (FP) PO SCH (10:56)
[2020-07-19] MEDS: LISINOPRIL 5 MG TABLET PO SCH (10:56)
[2020-07-19] MEDS: HEPARIN NA (PORCINE) 5,000 UNITS/ML 1ML VIAL SQ SCH ×2 (10:56→21:24)
[2020-07-19] MEDS: LACTATED RINGERS SOLUTION 1,000 ML IV SCH ×2 (10:57→21:29)
[2020-07-19] MEDS ORDERED: PT OWN MED DRAWER 7, Y5N ONE (17:18)
[2020-07-20] MEDS: INSULIN SLIDING SCALE (NOVOLOG) 1 VIAL SQ SCH ×4 (06:11→21:18)
[2020-07-20 08:30] LABS: BASO % 0.9 % (0-2.0); EOS % 3.5 % (0-4.5); HEMATOCRIT 32.5 % (35.4-49); HEMOGLOBIN 10.9 GM/dL (11.7-16.9); LYMPH % 26.2 % (8-40); MCHC 33.4 g/dl (32.0-35.9); MEAN PLT VOLUME 9.5 fl (7.5-11.1); MONO % 9.7 % (3.8-10.2); NEUT % 59.7 % (42.8-82.8); PLATELET COUNT 183 K/MM3 (134-434); RBC 3.74 M/mm3 (4.00-5.60); RDW 16.8 % (11.9-15.9); WHITE BLOOD COUNT 3.8 K/mm3 (4.0-10.0)
[2020-07-20 08:51] LABS: CALCIUM 8.3 mg/dL (8.5-10.1)
[2020-07-20 08:52] LABS: ALBUMIN 3.2 g/dl (3.4-5.0); BLOOD UREA NITROGEN 6.5 mg/dL (7-18); MAGNESIUM 1.7 mg/dL (1.8-2.4)
[2020-07-20 08:55] LABS: CREATININE 0.6 mg/dL (0.55-1.3)
[2020-07-20 08:57] LABS: BILIRUBIN,TOTAL 0.8 mg/dL (0.2-1); TOT PROT 5.9 g/dl (6.4-8.2)
[2020-07-20] MEDS: LISINOPRIL 5 MG TABLET PO SCH (09:23)
[2020-07-20] MEDS: ATORVASTATIN CA 80 MG TABLET (FP) PO SCH ×2 (09:23→21:17)
[2020-07-20] MEDS: DOCUSATE SODIUM 100 MG CAPSULE (FP) PO SCH ×2 (09:24→21:17)
[2020-07-20] MEDS: HEPARIN NA (PORCINE) 5,000 UNITS/ML 1ML VIAL SQ SCH ×2 (09:24→21:17)
[2020-07-20] MEDS ORDERED: ROPIVACAINE HCL 0.5% 30ML VIAL ONE (12:39)
[2020-07-20] MEDS ORDERED: MIDAZOLAM HCL 2 MG/2 ML SINGLE DOSE VIAL ONE ×2 (12:41)
[2020-07-20] MEDS ORDERED: BUPIVACAINE HCL 50 ML ONE (12:57)
[2020-07-20] MEDS ORDERED: LIDOCAINE HCL 1%, 10 MG/ML (20ML VIAL) ONE (12:57)
[2020-07-20] MEDS ORDERED: KETOROLAC TROMETHAMINE 30 MG/1 ML VIAL ONE ×2 (13:16→14:12)
[2020-07-20] MEDS ORDERED: LIDOCAINE HCL/PF 2% SDV 5ML VIAL ONE (13:22)
[2020-07-20] MEDS ORDERED: PROPOFOL 20 ML ONE ×2 (13:22)
[2020-07-20] MEDS ORDERED: ceFAZolin SODIUM 1 GM VIAL ONE (13:34)
[2020-07-20] MEDS ORDERED: ceFAZolin SODIUM 1 GM VIAL IVPB ONE (13:36)
[2020-07-20] MEDS ORDERED: ONDANSETRON 4 MG/2 ML VIAL IVPUSH PRN ×2 (15:05→15:39)
[2020-07-20] MEDS ORDERED: ACETAMINOPHEN 1000 MG/100 ML VIAL (NON FORMULARY) IVPB PRN (15:06)
[2020-07-20] MEDS ORDERED: oxyCODONE HCL 5 MG TABLET PO PRN (15:26)
[2020-07-20] MEDS ORDERED: SENNOSIDES 8.6MG TABLET (FP) PO PRN (15:39)
[2020-07-20] MEDS ORDERED: ACETAMINOPHEN INJECTION 100 ML IVPB ONE (15:50)
[2020-07-20] MEDS: LACTATED RINGERS SOLUTION 1,000 ML IV SCH (17:00)
[2020-07-20] MEDS: ACETAMINOPHEN 1000 MG/100 ML VIAL (NON FORMULARY) IVPB SCH (22:04)
[2020-07-21] MEDS: LACTATED RINGERS SOLUTION 1,000 ML IV SCH (02:29)
[2020-07-21] MEDS: ACETAMINOPHEN 1000 MG/100 ML VIAL (NON FORMULARY) IVPB SCH (04:37)
[2020-07-21] MEDS: INSULIN SLIDING SCALE (NOVOLOG) 1 VIAL SQ SCH ×4 (06:32→21:05)
[2020-07-21 08:20] LABS: BASO % 0.6 % (0-2.0); EOS % 1.3 % (0-4.5); HEMATOCRIT 31.9 % (35.4-49); HEMOGLOBIN 10.8 GM/dL (11.7-16.9); LYMPH % 11.6 % (8-40); MCH 29.6 pg (25.7-33.7); MCHC 33.7 g/dl (32.0-35.9); MEAN CELL VOLUME 87.9 fl (80-96); MEAN PLT VOLUME 9.6 fl (7.5-11.1); NEUT % 77.5 % (42.8-82.8); PLATELET COUNT 164 K/MM3 (134-434); RBC 3.63 M/mm3 (4.00-5.60); RDW 16.6 % (11.9-15.9); WHITE BLOOD COUNT 7.6 K/mm3 (4.0-10.0)
[2020-07-21 08:39] LABS: BLOOD UREA NITROGEN 7.2 mg/dL (7-18); CALCIUM 8.2 mg/dL (8.5-10.1)
[2020-07-21 08:40] LABS: MAGNESIUM 1.5 mg/dL (1.8-2.4)
[2020-07-21 08:42] LABS: CREATININE 0.7 mg/dL (0.55-1.3)
[2020-07-21 08:44] LABS: TOT PROT 5.5 g/dl (6.4-8.2)
[2020-07-21] MEDS: LISINOPRIL 5 MG TABLET PO SCH (09:37)
[2020-07-21] MEDS: HEPARIN NA (PORCINE) 5,000 UNITS/ML 1ML VIAL SQ SCH ×2 (09:37→21:05)
[2020-07-21] MEDS: DOCUSATE SODIUM 100 MG CAPSULE (FP) PO SCH ×2 (09:38→21:05)
[2020-07-21] MEDS ORDERED: ACETAMINOPHEN 325 MG TABLET (FP) PO PRN (10:00)
[2020-07-21] MEDS: ATORVASTATIN CA 80 MG TABLET (FP) PO SCH (21:04)
[2020-07-21] MEDS: oxyCODONE HCL 5 MG TABLET PO PRN (21:39)
[2020-07-22] MEDS: INSULIN SLIDING SCALE (NOVOLOG) 1 VIAL SQ SCH ×2 (06:05→10:55)
[2020-07-22] MEDS: oxyCODONE HCL 5 MG TABLET PO PRN (06:47)
[2020-07-22] MEDS: HEPARIN NA (PORCINE) 5,000 UNITS/ML 1ML VIAL SQ SCH (10:55)
[2020-07-22] MEDS: LISINOPRIL 5 MG TABLET PO SCH (10:55)
[2020-07-22] MEDS: DOCUSATE SODIUM 100 MG CAPSULE (FP) PO SCH (10:55)
[2020-07-22 11:47] VITALS: BP 132/76; PULSE 63; TEMP 98.6
== END 2020-07-22 14:09 | disposition home health service (06) | DRG 228 ==
LOC: JER 16:36 → JERBED 21:24 → J6S 07-17 01:57
PROVIDERS: ADMIT Hospitalist; ATTEND Nurse Practitioner Acute Care
PROC: 0WBH0ZZ Excision of Retroperitoneum, Open Approach (ICD-10-PCS; 2020-07-20)
PROC: 0YU64JZ Supplement Left Inguinal Region with Synthetic Substitute, Percutaneous Endoscopic Approach (ICD-10-PCS; principal; 2020-07-20 11:00)
DX: K40.90 Unilateral inguinal hernia, without obstruction or gangrene, not specified as recurrent (principal); I25.10 Atherosclerotic heart disease of native coronary artery without angina pectoris; E11.649 Type 2 diabetes mellitus with hypoglycemia without coma; I69.354 Hemiplegia and hemiparesis following cerebral infarction affecting left non-dominant side; E83.42 Hypomagnesemia; I11.9 Hypertensive heart disease without heart failure
CPT/HCPCS: 36415; 74177-TC; 80053; 80061; 81003; 82550; 82553; 82962; 83036; 83605; 83690; 83721; 83735; 84100; 84132; 84484; 85025; 85610; 87086; 88304-TC; 93005; 93010; 94760; 97116-GP; 97161-GP; 99285-25; C9803; J0131; J1644; Q9967; U0003; U0005

== ENCOUNTER 2020-09-01 08:39 | Inpatient (IN) | payer OTHER ==
[2020-09-01] MEDS ORDERED: SODIUM CHLORIDE 1,000 ML IV SCH (08:45)
[2020-09-01] MEDS ORDERED: DEXTROSE 50%-WATER - 25 GM/50 ML VIAL IVPUSH ONE ×2 (08:47)
[2020-09-01] MEDS ORDERED: DEXTROSE 50%-WATER 25 GM/50 ML DISP.SYRIN ONE (08:47)
[2020-09-01 09:13] LABS: BASO % 0.6 % (0-2.0); EOS % 0.1 % (0-4.5); HEMATOCRIT 34.7 % (35.4-49); HEMOGLOBIN 11.2 GM/dL (11.7-16.9); LYMPH % 10.9 % (8-40); MCHC 32.3 g/dl (32.0-35.9); MEAN CELL VOLUME 86.9 fl (80-96); MEAN PLT VOLUME 10.4 fl (7.5-11.1); MONO % 5.2 % (3.8-10.2); NEUT % 83.2 % (42.8-82.8); PLATELET COUNT 230 10^3/uL (134-434); RDW 16.4 % (11.9-15.9); WHITE BLOOD COUNT 6.9 K/mm3 (4.0-10.0)
[2020-09-01 09:20] LABS: INR 1.44 (0.83-1.09); PROTHROMBIN TIME (PATIENT) 17.5 SEC (9.7-13.0)
[2020-09-01 09:22] LABS: ACTIVATED PTT 41.5 SECONDS (25.2-36.5)
[2020-09-01 09:32] LABS: CHLORIDE 112 mmol/L (98-107); SODIUM 147 mmol/L (136-145)
[2020-09-01 09:34] LABS: ALBUMIN 3.6 g/dl (3.4-5.0); CALCIUM 7.9 mg/dL (8.5-10.1)
[2020-09-01 09:35] LABS: ANION GAP 8 MMOL/L (8-16); BLOOD UREA NITROGEN 8.7 mg/dL (7-18); CO2 26 mmol/L (21-32)
[2020-09-01 09:37] LABS: CHOLESTEROL 85 mg/dL (50-200); SGPT/ALT 14 U/L (13-61)
[2020-09-01 09:38] LABS: CREATININE 0.8 mg/dL (0.55-1.3); LDL CHOLESTEROL (ONLY SJRH) 39 mg/dL (5-100); SGOT/AST 10 U/L (15-37); TRIGLYCERIDES 56 mg/dL (0-150)
[2020-09-01 09:39] LABS: BILIRUBIN,TOTAL 0.5 mg/dL (0.2-1); GLUCOSE,RANDOM 21 mg/dL (74-106); TOT PROT 6.5 g/dl (6.4-8.2)
[2020-09-01 09:40] LABS: ALK PHOS 61 U/L (45-117); HDL CHOLESTEROL 43 mg/dL (40-60)
[2020-09-01] MEDS ORDERED: POTASSIUM CHLORIDE ORAL LIQUID 20 MEQ/15 ML PO ONE (09:56)
[2020-09-01] MEDS ORDERED: POTASSIUM CHLORIDE ORAL LIQUID 20 MEQ/15 ML ONE (10:04)
[2020-09-01 10:23] VITALS: BMI 31.4
[2020-09-01 11:26] LABS: URINE APPEARANCE Clear; URINE BILIRUBIN Negative (NEGATIVE); URINE COLOR Yellow; URINE GLUCOSE (UA) 2+ (NEGATIVE); URINE KETONE Trace (NEGATIVE); URINE LEUK ESTERASE Negative (NEGATIVE); URINE NITRITE Negative (NEGATIVE); URINE PROTEIN Negative (NEGATIVE); URINE UROBILINOGEN 0.2 mg/dL (0.2-1.0)
[2020-09-01] MEDS ORDERED: D5-1/2NS+20 MEQ KCL - 20 MEQ/1,000 ML INFUS.BAG IV SCH (16:00)
[2020-09-01] MEDS: INSULIN SLIDING SCALE (NOVOLOG) 1 VIAL SQ SCH (21:53)
[2020-09-01] MEDS: INSULIN (LEVEMIR) 100 UNITS/ML UNITS SQ SCH (21:54)
[2020-09-02] MEDS: INSULIN SLIDING SCALE (NOVOLOG) 1 VIAL SQ SCH (06:07)
[2020-09-02] MEDS: INSULIN (LEVEMIR) 100 UNITS/ML UNITS SQ SCH (06:14)
[2020-09-02 08:10] LABS: BASO % 1.4 % (0-2.0); EOS % 2.5 % (0-4.5); HEMOGLOBIN 10.4 GM/dL (11.7-16.9); LYMPH % 31.7 % (8-40); MCH 28.2 pg (25.7-33.7); MCHC 32.5 g/dl (32.0-35.9); MEAN CELL VOLUME 86.8 fl (80-96); MEAN PLT VOLUME 10.4 fl (7.5-11.1); MONO % 10.1 % (3.8-10.2); NEUT % 54.3 % (42.8-82.8); PLATELET COUNT 180 10^3/uL (134-434); RBC 3.68 M/mm3 (4.00-5.60); RDW 15.8 % (11.9-15.9); WHITE BLOOD COUNT 3.8 K/mm3 (4.0-10.0)
[2020-09-02 08:29] LABS: CALCIUM 7.8 mg/dL (8.5-10.1)
[2020-09-02 08:30] LABS: BLOOD UREA NITROGEN 8.8 mg/dL (7-18); MAGNESIUM 1.6 mg/dL (1.8-2.4)
[2020-09-02 08:33] LABS: CREATININE 0.7 mg/dL (0.55-1.3)
[2020-09-02] MEDS ORDERED: MAGNESIUM OXIDE 400 MG TABLET (FP) PO ONE (08:42)
[2020-09-02] MEDS: metoPROLOL SUCCINATE 25 MG TAB.SR.24H (FP) PO SCH ×2 (09:32→21:18)
[2020-09-02] MEDS: ASPIRIN 81 MG CHEWABLE TABLETS PO SCH (09:32)
[2020-09-02] MEDS: ENOXAPARIN NA (PORCINE) 40 MG/0.4 ML DISP.SYRIN SQ SCH (09:32)
[2020-09-02] MEDS: LISINOPRIL 5 MG TABLET PO SCH (09:32)
[2020-09-03 07:30] LABS: BASO % 1.1 % (0-2.0); EOS % 3.7 % (0-4.5); HEMATOCRIT 34.5 % (35.4-49); HEMOGLOBIN 11.2 GM/dL (11.7-16.9); LYMPH % 27.8 % (8-40); MCH 28.1 pg (25.7-33.7); MCHC 32.4 g/dl (32.0-35.9); MEAN CELL VOLUME 86.8 fl (80-96); MEAN PLT VOLUME 9.6 fl (7.5-11.1); MONO % 10.7 % (3.8-10.2); NEUT % 56.7 % (42.8-82.8); PLATELET COUNT 179 10^3/uL (134-434); RBC 3.97 M/mm3 (4.00-5.60); RDW 16.2 % (11.9-15.9); WHITE BLOOD COUNT 3.8 K/mm3 (4.0-10.0)
[2020-09-03 07:46] LABS: CHLORIDE 113 mmol/L (98-107); SODIUM 146 mmol/L (136-145)
[2020-09-03 07:51] LABS: ALBUMIN 3.2 g/dl (3.4-5.0); ANION GAP 6 MMOL/L (8-16); BLOOD UREA NITROGEN 8.9 mg/dL (7-18); CALCIUM 8.1 mg/dL (8.5-10.1); CO2 28 mmol/L (21-32); GLUCOSE,RANDOM 128 mg/dL (74-106); MAGNESIUM 1.6 mg/dL (1.8-2.4)
[2020-09-03 07:53] LABS: SGPT/ALT 15 U/L (13-61)
[2020-09-03 07:54] LABS: BILIRUBIN,TOTAL 0.5 mg/dL (0.2-1); SGOT/AST 11 U/L (15-37)
[2020-09-03 07:56] LABS: ALK PHOS 54 U/L (45-117)
[2020-09-03 07:57] LABS: CREATININE 0.7 mg/dL (0.55-1.3)
[2020-09-03] MEDS ORDERED: ACETAMINOPHEN 1000 MG/100 ML VIAL (NON FORMULARY) IVPB ONE (10:00)
[2020-09-03] MEDS ORDERED: FAMOTIDINE 20 MG/50 ML IVPB 20 MG/50 ML MG IVPB ONE (10:00)
[2020-09-03] MEDS ORDERED: MAG HYDROX/AL HYDROX/SIMETH 30 ML UNIT-DOSE CUP PO ONE (10:00)
[2020-09-03] MEDS: metoPROLOL SUCCINATE 25 MG TAB.SR.24H (FP) PO SCH (10:03)
[2020-09-03] MEDS: ASPIRIN 81 MG CHEWABLE TABLETS PO SCH (10:03)
[2020-09-03] MEDS: LISINOPRIL 5 MG TABLET PO SCH (10:03)
[2020-09-03] MEDS: ENOXAPARIN NA (PORCINE) 40 MG/0.4 ML DISP.SYRIN SQ SCH (10:03)
[2020-09-03] MEDS ORDERED: MAGNESIUM OXIDE 400 MG TABLET (FP) PO ONE (12:00)
[2020-09-03] MEDS: INSULIN SLIDING SCALE (NOVOLOG) 1 VIAL SQ SCH ×2 (18:12→21:35)
[2020-09-03] MEDS: ATORVASTATIN CA 80 MG TABLET (FP) PO SCH (21:34)
[2020-09-04] MEDS: INSULIN SLIDING SCALE (NOVOLOG) 1 VIAL SQ SCH ×4 (06:24→21:33)
[2020-09-04 06:41] LABS: BASO % 0.7 % (0-2.0); EOS % 3.5 % (0-4.5); HEMATOCRIT 34.3 % (35.4-49); LYMPH % 28.6 % (8-40); MCH 28.1 pg (25.7-33.7); MEAN CELL VOLUME 87.7 fl (80-96); MONO % 10.6 % (3.8-10.2); NEUT % 56.6 % (42.8-82.8); PLATELET COUNT 184 10^3/uL (134-434); RDW 15.5 % (11.9-15.9)
[2020-09-04 07:27] LABS: ALBUMIN 3.2 g/dl (3.4-5.0); BLOOD UREA NITROGEN 11.8 mg/dL (7-18); CALCIUM 8.5 mg/dL (8.5-10.1)
[2020-09-04 07:28] LABS: CREATININE 0.8 mg/dL (0.55-1.3)
[2020-09-04 07:30] LABS: BILIRUBIN,TOTAL 0.4 mg/dL (0.2-1); TOT PROT 5.9 g/dl (6.4-8.2)
[2020-09-04] MEDS: LISINOPRIL 5 MG TABLET PO SCH (10:09)
[2020-09-04] MEDS: ASPIRIN 81 MG CHEWABLE TABLETS PO SCH (10:10)
[2020-09-04] MEDS: ENOXAPARIN NA (PORCINE) 40 MG/0.4 ML DISP.SYRIN SQ SCH (10:10)
[2020-09-04] MEDS ORDERED: NAPROXEN 500 MG TABLET PO ONE (19:05)
[2020-09-04] MEDS ORDERED: INSULIN (NOVOLOG) ASPART 100 UNITS/ML 10ML VIAL ONE (20:33)
[2020-09-04] MEDS: ATORVASTATIN CA 80 MG TABLET (FP) PO SCH (21:33)
[2020-09-05] MEDS: INSULIN SLIDING SCALE (NOVOLOG) 1 VIAL SQ SCH ×2 (06:01→13:24)
[2020-09-05] MEDS ORDERED: PT OWN MED DRAWER 7, Y5N ONE ×2 (08:23→09:50)
[2020-09-05] MEDS: LISINOPRIL 5 MG TABLET PO SCH (09:44)
[2020-09-05] MEDS: ENOXAPARIN NA (PORCINE) 40 MG/0.4 ML DISP.SYRIN SQ SCH (09:45)
[2020-09-05] MEDS: ASPIRIN 81 MG CHEWABLE TABLETS PO SCH (09:51)
[2020-09-05] MEDS ORDERED: NAPROXEN 500 MG TABLET PO SCH (10:00)
[2020-09-05 13:38] VITALS: BP 143/74; PULSE 48; TEMP 98
== END 2020-09-05 13:25 | disposition home health service (06) | DRG 420 ==
LOC: JER 08:39 → JERBED 15:01 → J4W 21:01
PROVIDERS: ATTEND Internal Medicine
DX: E11.649 Type 2 diabetes mellitus with hypoglycemia without coma (principal); G81.94 Hemiplegia, unspecified affecting left nondominant side; G93.41 Metabolic encephalopathy; E87.6 Hypokalemia; E83.42 Hypomagnesemia; I25.10 Atherosclerotic heart disease of native coronary artery without angina pectoris; I11.0 Hypertensive heart disease with heart failure; I50.30 Unspecified diastolic (congestive) heart failure; E87.0 Hyperosmolality and hypernatremia; I25.2 Old myocardial infarction; K59.09 Other constipation; I48.91 Unspecified atrial fibrillation; M94.0 Chondrocostal junction syndrome [Tietze]; R00.1 Bradycardia, unspecified
CPT/HCPCS: 36415; 70450-TC; 71045-TC-FY; 80048; 80053; 80061; 81003; 82550; 82962; 83036; 83721; 83735; 84100; 84484; 84681; 85025; 85610; 85730; 87040; 93005; 93010; 97116-GP; 97161-GP; 99285-25; C9803; J0131; U0003; U0005

== ENCOUNTER 2020-09-20 08:08 | Inpatient (IN) | payer OTHER ==
[2020-09-20 09:22] VITALS: BMI 31.4
[2020-09-20 09:34] LABS: EOS % 0.3 % (0-4.5); HEMATOCRIT 37.8 % (35.4-49); HEMOGLOBIN 12.6 GM/dL (11.7-16.9); LYMPH % 13.4 % (8-40); MCH 28.5 pg (25.7-33.7); MCHC 33.3 g/dl (32.0-35.9); MEAN CELL VOLUME 85.6 fl (80-96); MONO % 6.3 % (3.8-10.2); RBC 4.42 M/mm3 (4.00-5.60); RDW 15.7 % (11.9-15.9); WHITE BLOOD COUNT 6.8 K/mm3 (4.0-10.0)
[2020-09-20] MEDS ORDERED: ASPIRIN 81 MG CHEWABLE TABLETS PO ONE ×2 (09:39→10:23)
[2020-09-20 09:45] LABS: INR 1.06 (0.83-1.09)
[2020-09-20 09:47] LABS: ACTIVATED PTT 26.9 SECONDS (25.2-36.5)
[2020-09-20 10:07] LABS: ALBUMIN 3.9 g/dl (3.4-5.0); BILIRUBIN,TOTAL 1.1 mg/dL (0.2-1); BLOOD UREA NITROGEN 10.9 mg/dL (7-18); CALCIUM 8.1 mg/dL (8.5-10.1); CREATININE 0.9 mg/dL (0.55-1.3); TOT PROT 6.9 g/dl (6.4-8.2)
[2020-09-20] MEDS ORDERED: ASPIRIN 81 MG CHEWABLE TABLETS ONE (10:25)
[2020-09-20] MEDS ORDERED: ACETAMINOPHEN 1000 MG/100 ML VIAL (NON FORMULARY) IVPB ONE (10:59)
[2020-09-20] MEDS ORDERED: ACETAMINOPHEN INJECTION 100 ML IVPB ONE (11:43)
[2020-09-20] MEDS ORDERED: NITROGLYCERIN SUBLINGUAL 1/150 0.4 MG TAB SL ONE (11:56)
[2020-09-20] MEDS ORDERED: HEPARIN NA (PORCINE) 5,000 UNITS/ML 1ML VIAL IVPUSH PRN ×2 (11:56)
[2020-09-20] MEDS ORDERED: METOPROLOL TARTRATE 25 MG TABLET (FP) ONE (13:16)
[2020-09-20] MEDS ORDERED: ATORVASTATIN CA 80 MG TABLET (FP) ONE (13:16)
[2020-09-20] MEDS ORDERED: CLOPIDOGREL BISULFATE 75 MG TABLET (FP) ONE (13:17)
[2020-09-20] MEDS ORDERED: HEPARIN INFUSION - 25,000 UNITS/500 ML INFUS.BAG IVPB ONE (13:17)
[2020-09-20] MEDS: ATORVASTATIN CA 80 MG TABLET (FP) PO SCH ×2 (13:19→21:46)
[2020-09-20] MEDS: CLOPIDOGREL BISULFATE 75 MG TABLET (FP) PO SCH (13:19)
[2020-09-20] MEDS: METOPROLOL TARTRATE 25 MG TABLET (FP) PO SCH ×2 (13:19→21:45)
[2020-09-20] MEDS: HEPARIN - 25,000 UNIT in SODIUM CHLORIDE 495 ML IV SCH (13:55)
[2020-09-20] MEDS: INSULIN SLIDING SCALE (NOVOLOG) 1 VIAL SQ SCH ×2 (18:22→21:45)
[2020-09-20] MEDS ORDERED: NAPROXEN 500 MG TABLET PO SCH (22:00)
[2020-09-21 03:35] LABS: PH,URINE 5.5 (5.0-8.0); URINE APPEARANCE CLEAR; URINE BILIRUBIN NEGATIVE (NEGATIVE); URINE COLOR YELLOW; URINE GLUCOSE (UA) 3+ (NEGATIVE); URINE KETONE 1+ (NEGATIVE); URINE LEUK ESTERASE NEGATIVE (NEGATIVE); URINE NITRITE NEGATIVE (NEGATIVE); URINE PROTEIN TRACE (NEGATIVE)
[2020-09-21 03:45] LABS: COCAINE, UR NEGATIVE (NEGATIVE); URINE AMPHETAMINES NEGATIVE (NEGATIVE)
[2020-09-21 03:46] LABS: OPIATES, URI NEGATIVE (NEGATIVE); PHENCYCLIDINE,URINE NEGATIVE (NEGATIVE)
[2020-09-21 03:54] LABS: METHADONE, UR NEGATIVE (NEGATIVE); URINE BARBITURATES NEGATIVE (NEGATIVE); URINE BENZODIAZEPINES NEGATIVE (NEGATIVE)
[2020-09-21] MEDS: INSULIN SLIDING SCALE (NOVOLOG) 1 VIAL SQ SCH ×4 (06:22→23:35)
[2020-09-21 06:58] LABS: BASO % 0.5 % (0-2.0); EOS % 0.5 % (0-4.5); HEMATOCRIT 36.7 % (35.4-49); HEMOGLOBIN 12.2 GM/dL (11.7-16.9); LYMPH % 17.6 % (8-40); MCH 28.7 pg (25.7-33.7); MCHC 33.3 g/dl (32.0-35.9); MEAN CELL VOLUME 86.2 fl (80-96); MEAN PLT VOLUME 10.3 fl (7.5-11.1); MONO % 10.3 % (3.8-10.2); NEUT % 71.1 % (42.8-82.8); PLATELET COUNT 187 10^3/uL (134-434); RBC 4.26 M/mm3 (4.00-5.60); RDW 15.4 % (11.9-15.9); WHITE BLOOD COUNT 4.9 K/mm3 (4.0-10.0)
[2020-09-21 07:14] LABS: ALBUMIN 3.6 g/dl (3.4-5.0); MAGNESIUM 1.3 mg/dL (1.8-2.4)
[2020-09-21 07:15] LABS: BLOOD UREA NITROGEN 9.2 mg/dL (7-18)
[2020-09-21 07:17] LABS: CREATININE 0.9 mg/dL (0.55-1.3)
[2020-09-21 07:18] LABS: PHOSPHOROUS 2.1 mg/dL (2.5-4.9)
[2020-09-21 07:19] LABS: TOT PROT 6.7 g/dl (6.4-8.2)
[2020-09-21 07:20] LABS: BILIRUBIN,TOTAL 1.1 mg/dL (0.2-1)
[2020-09-21] MEDS ORDERED: SODIUM PHOSPHATE - 30 MM in DEXTROSE 5%-WATER - 250 ML IVPB ONE (08:23)
[2020-09-21] MEDS ORDERED: MAGNESIUM SULF 50% (8.12 MEQ/2 ML-1 GM VIAL) IVPB ONE (09:00)
[2020-09-21] MEDS: ASPIRIN COATED 81 MG TABLET.EC PO SCH (09:07)
[2020-09-21] MEDS: CLOPIDOGREL BISULFATE 75 MG TABLET (FP) PO SCH (09:08)
[2020-09-21] MEDS: METOPROLOL TARTRATE 25 MG TABLET (FP) PO SCH ×2 (09:08→23:39)
[2020-09-21] MEDS ORDERED: LISINOPRIL 5 MG TABLET PO ONE (09:30)
[2020-09-21] MEDS ORDERED: LISINOPRIL 5 MG TABLET PO SCH (10:00)
[2020-09-21] MEDS ORDERED: ATORVASTATIN CA 80 MG TABLET (FP) PO SCH (10:00)
[2020-09-21] MEDS ORDERED: ASPIRIN 81 MG CHEWABLE TABLETS PO SCH (10:00)
[2020-09-21] MEDS ORDERED: POTASSIUM PHOSPHATE 30 MM in SODIUM CHLORIDE 500 ML IVPB ONE (11:00)
[2020-09-21] MEDS: HEPARIN - 25,000 UNIT in SODIUM CHLORIDE 495 ML IV SCH (12:18)
[2020-09-21] MEDS ORDERED: PT OWN MED DRAWER 7, Y5N ONE (14:52)
[2020-09-21] MEDS: ATORVASTATIN CA 80 MG TABLET (FP) PO SCH (23:42)
[2020-09-22] MEDS: INSULIN SLIDING SCALE (NOVOLOG) 1 VIAL SQ SCH ×4 (06:32→21:42)
[2020-09-22 07:55] LABS: MCH 29.1 pg (25.7-33.7); MCHC 34.4 g/dl (32.0-35.9); MEAN CELL VOLUME 84.8 fl (80-96); MEAN PLT VOLUME 9.5 fl (7.5-11.1); PLATELET COUNT 167 10^3/uL (134-434); RBC 3.78 M/mm3 (4.00-5.60); RDW 15.2 % (11.9-15.9); WHITE BLOOD COUNT 4.7 K/mm3 (4.0-10.0)
[2020-09-22 08:21] LABS: INR 1.13 (0.83-1.09); PROTHROMBIN TIME (PATIENT) 13.9 SEC (9.7-13.0)
[2020-09-22 09:29] LABS: CALCIUM 7.6 mg/dL (8.5-10.1); CREATININE 0.7 mg/dL (0.55-1.3)
[2020-09-22] MEDS: ASPIRIN COATED 81 MG TABLET.EC PO SCH (10:07)
[2020-09-22] MEDS: LISINOPRIL 5 MG TABLET PO SCH (10:07)
[2020-09-22] MEDS: metoPROLOL SUCCINATE 25 MG TAB.SR.24H (FP) PO SCH (10:07)
[2020-09-22] MEDS: CLOPIDOGREL BISULFATE 75 MG TABLET (FP) PO SCH (10:08)
[2020-09-22] MEDS ORDERED: POTASSIUM CHLORIDE TABS 20 MEQ TABLET.ER (FP) PO ONE (19:36)
[2020-09-22] MEDS: ATORVASTATIN CA 80 MG TABLET (FP) PO SCH (21:35)
[2020-09-22] MEDS ORDERED: INSULIN (NOVOLOG) ASPART 100 UNITS/ML 10ML VIAL ONE (21:42)
[2020-09-23] MEDS: INSULIN SLIDING SCALE (NOVOLOG) 1 VIAL SQ SCH ×4 (06:17→21:07)
[2020-09-23 08:02] LABS: HEMATOCRIT 32.5 % (35.4-49); HEMOGLOBIN 10.9 GM/dL (11.7-16.9); MCH 28.8 pg (25.7-33.7); MCHC 33.6 g/dl (32.0-35.9); MEAN CELL VOLUME 85.7 fl (80-96); MEAN PLT VOLUME 10.2 fl (7.5-11.1); PLATELET COUNT 190 10^3/uL (134-434); RBC 3.79 M/mm3 (4.00-5.60); RDW 15.5 % (11.9-15.9)
[2020-09-23 08:18] LABS: CHLORIDE 113 mmol/L (98-107); SODIUM 145 mmol/L (136-145)
[2020-09-23 08:22] LABS: ANION GAP 7 MMOL/L (8-16); CALCIUM 7.7 mg/dL (8.5-10.1); CO2 25 mmol/L (21-32); GLUCOSE,RANDOM 123 mg/dL (74-106)
[2020-09-23 08:26] LABS: CREATININE 0.8 mg/dL (0.55-1.3)
[2020-09-23] MEDS: metoPROLOL SUCCINATE 25 MG TAB.SR.24H (FP) PO SCH (11:18)
[2020-09-23] MEDS: CLOPIDOGREL BISULFATE 75 MG TABLET (FP) PO SCH (11:18)
[2020-09-23] MEDS: ASPIRIN COATED 81 MG TABLET.EC PO SCH (11:18)
[2020-09-23] MEDS: LISINOPRIL 5 MG TABLET PO SCH (11:18)
[2020-09-23 16:13] LABS: PHOSPHOROUS 2.8 mg/dL (2.5-4.9)
[2020-09-23] MEDS ORDERED: SODIUM CHLORIDE 1,000 ML IV SCH (17:00)
[2020-09-23] MEDS: ATORVASTATIN CA 80 MG TABLET (FP) PO SCH (21:07)
[2020-09-23] MEDS: HEPARIN NA (PORCINE) 5,000 UNITS/ML 1ML VIAL SQ SCH (21:07)
[2020-09-23] MEDS: METHYL SALICYLATE/MENTHOL OINT 30 GM TUBE TP SCH (21:16)
[2020-09-24] MEDS: INSULIN SLIDING SCALE (NOVOLOG) 1 VIAL SQ SCH ×4 (06:15→22:09)
[2020-09-24 07:53] LABS: HEMOGLOBIN 11.1 GM/dL (11.7-16.9); MCH 28.6 pg (25.7-33.7); MCHC 33.7 g/dl (32.0-35.9); MEAN CELL VOLUME 84.7 fl (80-96); MEAN PLT VOLUME 9.9 fl (7.5-11.1); PLATELET COUNT 182 10^3/uL (134-434); RBC 3.89 M/mm3 (4.00-5.60); RDW 15.5 % (11.9-15.9); WHITE BLOOD COUNT 4.5 K/mm3 (4.0-10.0)
[2020-09-24 07:55] LABS: BASO % 0.6 % (0-2.0); EOS % 2.1 % (0-4.5); HEMOGLOBIN 11.1 GM/dL (11.7-16.9); LYMPH % 26.8 % (8-40); MCH 28.6 pg (25.7-33.7); MCHC 33.6 g/dl (32.0-35.9); MONO % 10.8 % (3.8-10.2); NEUT % 59.7 % (42.8-82.8); PLATELET COUNT 182 10^3/uL (134-434); RBC 3.88 M/mm3 (4.00-5.60); RDW 15.4 % (11.9-15.9); WHITE BLOOD COUNT 4.4 K/mm3 (4.0-10.0)
[2020-09-24 08:08] LABS: ALBUMIN 3.2 g/dl (3.4-5.0); BLOOD UREA NITROGEN 11.7 mg/dL (7-18)
[2020-09-24 08:09] LABS: CALCIUM 7.5 mg/dL (8.5-10.1); MAGNESIUM 1.8 mg/dL (1.8-2.4)
[2020-09-24 08:11] LABS: CREATININE 0.8 mg/dL (0.55-1.3)
[2020-09-24 08:17] LABS: BILIRUBIN,TOTAL 1.1 mg/dL (0.2-1)
[2020-09-24] MEDS: ASPIRIN COATED 81 MG TABLET.EC PO SCH (09:18)
[2020-09-24] MEDS: HEPARIN NA (PORCINE) 5,000 UNITS/ML 1ML VIAL SQ SCH ×2 (09:19→22:04)
[2020-09-24] MEDS: LISINOPRIL 5 MG TABLET PO SCH (09:19)
[2020-09-24] MEDS: CLOPIDOGREL BISULFATE 75 MG TABLET (FP) PO SCH (09:19)
[2020-09-24] MEDS: metoPROLOL SUCCINATE 25 MG TAB.SR.24H (FP) PO SCH (09:19)
[2020-09-24] MEDS: METHYL SALICYLATE/MENTHOL OINT 30 GM TUBE TP SCH ×2 (09:20→22:04)
[2020-09-24] MEDS: CALCIUM 500MG/VIT-D 200 UNITS COMBO TABLET (FP) PO SCH ×2 (10:54→22:04)
[2020-09-24] MEDS: ATORVASTATIN CA 80 MG TABLET (FP) PO SCH (22:04)
[2020-09-25] MEDS: INSULIN SLIDING SCALE (NOVOLOG) 1 VIAL SQ SCH ×4 (06:09→21:43)
[2020-09-25 07:22] LABS: HEMATOCRIT 35.6 % (35.4-49); HEMOGLOBIN 11.9 GM/dL (11.7-16.9); LYMPH % 33.3 % (8-40); MCH 28.3 pg (25.7-33.7); MCHC 33.4 g/dl (32.0-35.9); MEAN CELL VOLUME 84.8 fl (80-96); MEAN PLT VOLUME 10.3 fl (7.5-11.1); MONO % 11.1 % (3.8-10.2); NEUT % 51.6 % (42.8-82.8); PLATELET COUNT 182 10^3/uL (134-434); RBC 4.19 M/mm3 (4.00-5.60); RDW 15.2 % (11.9-15.9); WHITE BLOOD COUNT 4.3 K/mm3 (4.0-10.0)
[2020-09-25 07:50] LABS: ALBUMIN 3.2 g/dl (3.4-5.0); BLOOD UREA NITROGEN 8.8 mg/dL (7-18); CALCIUM 8.6 mg/dL (8.5-10.1); MAGNESIUM 1.8 mg/dL (1.8-2.4)
[2020-09-25 07:54] LABS: CREATININE 0.7 mg/dL (0.55-1.3); PHOSPHOROUS 3.3 mg/dL (2.5-4.9)
[2020-09-25 07:56] LABS: BILIRUBIN,TOTAL 0.9 mg/dL (0.2-1); TOT PROT 6.1 g/dl (6.4-8.2)
[2020-09-25] MEDS ORDERED: PT OWN MED DRAWER 7, Y5N ONE (09:23)
[2020-09-25] MEDS: LISINOPRIL 10 MG TABLET PO SCH (10:39)
[2020-09-25] MEDS: metoPROLOL SUCCINATE 25 MG TAB.SR.24H (FP) PO SCH (10:39)
[2020-09-25] MEDS: CALCIUM 500MG/VIT-D 200 UNITS COMBO TABLET (FP) PO SCH ×2 (10:39→21:43)
[2020-09-25] MEDS: ASPIRIN COATED 81 MG TABLET.EC PO SCH (10:40)
[2020-09-25] MEDS: METHYL SALICYLATE/MENTHOL OINT 30 GM TUBE TP SCH ×2 (10:40→21:42)
[2020-09-25] MEDS: HEPARIN NA (PORCINE) 5,000 UNITS/ML 1ML VIAL SQ SCH ×2 (10:40→21:43)
[2020-09-25] MEDS: CLOPIDOGREL BISULFATE 75 MG TABLET (FP) PO SCH (10:40)
[2020-09-25] MEDS: ATORVASTATIN CA 40 MG TABLET (FP) PO SCH (21:43)
[2020-09-26] MEDS: INSULIN SLIDING SCALE (NOVOLOG) 1 VIAL SQ SCH ×4 (06:02→21:59)
[2020-09-26 08:26] LABS: EOS % 1.8 % (0-4.5); HEMATOCRIT 36.7 % (35.4-49); HEMOGLOBIN 12.5 GM/dL (11.7-16.9); LYMPH % 21.1 % (8-40); MCH 28.7 pg (25.7-33.7); MCHC 34.1 g/dl (32.0-35.9); MEAN CELL VOLUME 84.4 fl (80-96); MEAN PLT VOLUME 10.4 fl (7.5-11.1); MONO % 9.2 % (3.8-10.2); NEUT % 66.9 % (42.8-82.8); PLATELET COUNT 190 10^3/uL (134-434); RBC 4.35 M/mm3 (4.00-5.60); WHITE BLOOD COUNT 4.6 K/mm3 (4.0-10.0)
[2020-09-26 08:36] LABS: HEMATOCRIT 37.7 % (35.4-49); HEMOGLOBIN 12.5 GM/dL (11.7-16.9); MCH 28.2 pg (25.7-33.7); MCHC 33.1 g/dl (32.0-35.9); MEAN CELL VOLUME 85.2 fl (80-96); MEAN PLT VOLUME 10.4 fl (7.5-11.1); PLATELET COUNT 188 10^3/uL (134-434); RBC 4.42 M/mm3 (4.00-5.60); RDW 15.6 % (11.9-15.9); WHITE BLOOD COUNT 4.6 K/mm3 (4.0-10.0)
[2020-09-26 08:59] LABS: ALBUMIN 3.4 g/dl (3.4-5.0); BLOOD UREA NITROGEN 7.8 mg/dL (7-18); CALCIUM 8.5 mg/dL (8.5-10.1); MAGNESIUM 1.5 mg/dL (1.8-2.4)
[2020-09-26 09:00] LABS: BILIRUBIN,TOTAL 1.1 mg/dL (0.2-1)
[2020-09-26 09:02] LABS: CREATININE 0.6 mg/dL (0.55-1.3); TOT PROT 6.3 g/dl (6.4-8.2)
[2020-09-26 09:04] LABS: PHOSPHOROUS 3.6 mg/dL (2.5-4.9)
[2020-09-26] MEDS: CALCIUM 500MG/VIT-D 200 UNITS COMBO TABLET (FP) PO SCH ×2 (11:54→21:59)
[2020-09-26] MEDS: LISINOPRIL 10 MG TABLET PO SCH (11:54)
[2020-09-26] MEDS: metoPROLOL SUCCINATE 25 MG TAB.SR.24H (FP) PO SCH (11:54)
[2020-09-26] MEDS: CLOPIDOGREL BISULFATE 75 MG TABLET (FP) PO SCH (11:55)
[2020-09-26] MEDS: RANOLAZINE E.R. 500 MG TABLET (FP) PO SCH ×2 (11:55→21:59)
[2020-09-26] MEDS: ASPIRIN COATED 81 MG TABLET.EC PO SCH (11:55)
[2020-09-26] MEDS: METHYL SALICYLATE/MENTHOL OINT 30 GM TUBE TP SCH ×2 (11:56→21:59)
[2020-09-26] MEDS: HEPARIN NA (PORCINE) 5,000 UNITS/ML 1ML VIAL SQ SCH ×2 (11:56→21:59)
[2020-09-26] MEDS ORDERED: amLODIPine BESYLATE 5 MG TABLET (FP) PO ONE (17:06)
[2020-09-26] MEDS: KCL 10 MEQ IVPB 10 MEQ/100 ML INFUS.BAG IVPB SCH ×3 (17:12→18:59)
[2020-09-26] MEDS: ATORVASTATIN CA 40 MG TABLET (FP) PO SCH (21:59)
[2020-09-27] MEDS: INSULIN SLIDING SCALE (NOVOLOG) 1 VIAL SQ SCH ×4 (06:43→22:07)
[2020-09-27] MEDS ORDERED: MAGNESIUM SULF 50% (8.12 MEQ/2 ML-1 GM VIAL) IVPB ONE (07:27)
[2020-09-27] MEDS ORDERED: KCL 10 MEQ IVPB 10 MEQ/100 ML INFUS.BAG IVPB SCH (07:30)
[2020-09-27 07:39] LABS: BASO % 0.6 % (0-2.0); EOS % 1.9 % (0-4.5); HEMOGLOBIN 12.5 GM/dL (11.7-16.9); LYMPH % 21.7 % (8-40); MCH 28.3 pg (25.7-33.7); MCHC 33.8 g/dl (32.0-35.9); MEAN CELL VOLUME 83.7 fl (80-96); MEAN PLT VOLUME 9.5 fl (7.5-11.1); NEUT % 64.8 % (42.8-82.8); PLATELET COUNT 174 10^3/uL (134-434); RBC 4.42 M/mm3 (4.00-5.60); RDW 15.8 % (11.9-15.9); WHITE BLOOD COUNT 5.2 K/mm3 (4.0-10.0)
[2020-09-27 08:05] LABS: CALCIUM 8.8 mg/dL (8.5-10.1)
[2020-09-27 08:09] LABS: CREATININE 0.8 mg/dL (0.55-1.3)
[2020-09-27] MEDS ORDERED: POTASSIUM CHLORIDE TABS 20 MEQ TABLET.ER (FP) PO ONE (10:15)
[2020-09-27] MEDS: metoPROLOL SUCCINATE 25 MG TAB.SR.24H (FP) PO SCH (10:26)
[2020-09-27] MEDS: CALCIUM 500MG/VIT-D 200 UNITS COMBO TABLET (FP) PO SCH ×2 (10:26→21:53)
[2020-09-27] MEDS: METHYL SALICYLATE/MENTHOL OINT 30 GM TUBE TP SCH ×2 (10:26→21:54)
[2020-09-27] MEDS: RANOLAZINE E.R. 500 MG TABLET (FP) PO SCH ×2 (10:26→21:53)
[2020-09-27] MEDS: LISINOPRIL 10 MG TABLET PO SCH (10:27)
[2020-09-27] MEDS: CLOPIDOGREL BISULFATE 75 MG TABLET (FP) PO SCH (10:27)
[2020-09-27] MEDS: HEPARIN NA (PORCINE) 5,000 UNITS/ML 1ML VIAL SQ SCH ×2 (10:27→21:53)
[2020-09-27] MEDS: ASPIRIN COATED 81 MG TABLET.EC PO SCH (10:27)
[2020-09-27] MEDS: ISOSORBIDE MONONITRATE 30 MG TAB.SR.24H (FP) PO SCH (12:25)
[2020-09-27] MEDS ORDERED: INSULIN (NOVOLOG) ASPART 100 UNITS/ML 10ML VIAL ONE ×2 (17:16→21:00)
[2020-09-27] MEDS: ATORVASTATIN CA 80 MG TABLET (FP) PO SCH (21:53)
[2020-09-28] MEDS ORDERED: ACETAMINOPHEN 1000 MG/100 ML VIAL (NON FORMULARY) IVPB ONE (02:10)
[2020-09-28] MEDS: INSULIN SLIDING SCALE (NOVOLOG) 1 VIAL SQ SCH ×4 (06:07→21:51)
[2020-09-28 07:56] LABS: BASO % 0.6 % (0-2.0); HEMATOCRIT 35.4 % (35.4-49); HEMOGLOBIN 11.9 GM/dL (11.7-16.9); LYMPH % 17.1 % (8-40); MCH 28.3 pg (25.7-33.7); MCHC 33.6 g/dl (32.0-35.9); MEAN CELL VOLUME 84.4 fl (80-96); MEAN PLT VOLUME 10.3 fl (7.5-11.1); MONO % 11.6 % (3.8-10.2); NEUT % 69.7 % (42.8-82.8); PLATELET COUNT 182 10^3/uL (134-434); RDW 15.7 % (11.9-15.9); WHITE BLOOD COUNT 5.4 K/mm3 (4.0-10.0)
[2020-09-28 08:27] LABS: BLOOD UREA NITROGEN 14.5 mg/dL (7-18); CALCIUM 9.2 mg/dL (8.5-10.1)
[2020-09-28 08:29] LABS: MAGNESIUM 1.8 mg/dL (1.8-2.4)
[2020-09-28 08:31] LABS: PHOSPHOROUS 3.7 mg/dL (2.5-4.9)
[2020-09-28] MEDS: CLOPIDOGREL BISULFATE 75 MG TABLET (FP) PO SCH (09:41)
[2020-09-28] MEDS: ASPIRIN COATED 81 MG TABLET.EC PO SCH (09:41)
[2020-09-28] MEDS: ISOSORBIDE MONONITRATE 30 MG TAB.SR.24H (FP) PO SCH (09:41)
[2020-09-28] MEDS: FAMOTIDINE 20 MG TABLET PO SCH ×2 (09:41→21:44)
[2020-09-28] MEDS: RANOLAZINE E.R. 500 MG TABLET (FP) PO SCH ×2 (09:41→21:45)
[2020-09-28] MEDS: CALCIUM 500MG/VIT-D 200 UNITS COMBO TABLET (FP) PO SCH ×2 (09:41→21:44)
[2020-09-28] MEDS: METHYL SALICYLATE/MENTHOL OINT 30 GM TUBE TP SCH ×2 (09:42→21:45)
[2020-09-28] MEDS: metoPROLOL SUCCINATE 25 MG TAB.SR.24H (FP) PO SCH (09:42)
[2020-09-28] MEDS: HEPARIN NA (PORCINE) 5,000 UNITS/ML 1ML VIAL SQ SCH ×2 (09:42→21:44)
[2020-09-28] MEDS: LISINOPRIL 10 MG TABLET PO SCH (09:42)
[2020-09-28] MEDS ORDERED: INSULIN (NOVOLOG) ASPART 100 UNITS/ML 10ML VIAL ONE (11:42)
[2020-09-28] MEDS ORDERED: MAGNESIUM OXIDE 400 MG TABLET (FP) PO ONE (13:33)
[2020-09-28] MEDS: ATORVASTATIN CA 80 MG TABLET (FP) PO SCH (21:44)
[2020-09-29] MEDS: INSULIN SLIDING SCALE (NOVOLOG) 1 VIAL SQ SCH ×3 (06:22→16:51)
[2020-09-29 07:50] LABS: BLOOD UREA NITROGEN 13.2 mg/dL (7-18); MAGNESIUM 1.8 mg/dL (1.8-2.4)
[2020-09-29 07:53] LABS: CREATININE 0.9 mg/dL (0.55-1.3)
[2020-09-29 07:54] LABS: PHOSPHOROUS 3.2 mg/dL (2.5-4.9)
[2020-09-29] MEDS: ISOSORBIDE MONONITRATE 30 MG TAB.SR.24H (FP) PO SCH (10:15)
[2020-09-29] MEDS: LISINOPRIL 10 MG TABLET PO SCH (10:15)
[2020-09-29] MEDS: metoPROLOL SUCCINATE 25 MG TAB.SR.24H (FP) PO SCH (10:15)
[2020-09-29] MEDS: CLOPIDOGREL BISULFATE 75 MG TABLET (FP) PO SCH (10:15)
[2020-09-29] MEDS: HEPARIN NA (PORCINE) 5,000 UNITS/ML 1ML VIAL SQ SCH (10:15)
[2020-09-29] MEDS: ASPIRIN COATED 81 MG TABLET.EC PO SCH (10:15)
[2020-09-29] MEDS: FAMOTIDINE 20 MG TABLET PO SCH (10:15)
[2020-09-29] MEDS: RANOLAZINE E.R. 500 MG TABLET (FP) PO SCH (10:16)
[2020-09-29] MEDS: METHYL SALICYLATE/MENTHOL OINT 30 GM TUBE TP SCH (10:16)
[2020-09-29] MEDS: CALCIUM 500MG/VIT-D 200 UNITS COMBO TABLET (FP) PO SCH (10:16)
[2020-09-29] MEDS ORDERED: INSULIN (NOVOLOG) ASPART 100 UNITS/ML 10ML VIAL ONE (11:22)
[2020-09-29 18:57] VITALS: BP 111/77; PULSE 77; TEMP 98.2
[2020-09-30] MEDS ORDERED: INSULIN (LEVEMIR) 100 UNITS/ML UNITS SQ SCH (07:00)
== END 2020-09-29 19:32 | DRG 190 ==
LOC: JER 08:08 → JERBED 10:53 → J4W 20:44
PROVIDERS: ADMIT Internal Medicine; ATTEND Internal Medicine
DX: I21.4 Non-ST elevation (NSTEMI) myocardial infarction (principal); I24.8 Other forms of acute ischemic heart disease; I44.0 Atrioventricular block, first degree; E78.00 Pure hypercholesterolemia, unspecified; E11.9 Type 2 diabetes mellitus without complications; I69.959 Hemiplegia and hemiparesis following unspecified cerebrovascular disease affecting unspecified side; I63.9 Cerebral infarction, unspecified; I25.119 Atherosclerotic heart disease of native coronary artery with unspecified angina pectoris; B35.3 Tinea pedis; I11.0 Hypertensive heart disease with heart failure; I50.30 Unspecified diastolic (congestive) heart failure; I25.2 Old myocardial infarction; Z99.3 Dependence on wheelchair
CPT/HCPCS: 36415; 70450-TC; 70551-TC; 71045-TC-FY; 80048; 80053; 80061; 80307; 81003; 82550; 82553; 82962; 83036; 83735; 84100; 84484; 85025; 85027; 85610; 85730; 86850; 86900; 86901; 93005; 93010; 93306-TC; 93880-TC; 94761; 97162-GP; 99285-25; C9803; J0131; J1644; U0003; U0005

== ENCOUNTER 2020-10-03 12:35 | Observation (INO) | payer OTHER ==
[2020-10-03] MEDS ORDERED: ACETAMINOPHEN 1000 MG/100 ML VIAL (NON FORMULARY) IVPB ONE (15:10)
[2020-10-03 15:13] LABS: HEMATOCRIT 42.4 % (35.4-49); HEMOGLOBIN 14.1 GM/dL (11.7-16.9); MCH 28.4 pg (25.7-33.7); MCHC 33.3 g/dl (32.0-35.9); MEAN CELL VOLUME 85.2 fl (80-96); MEAN PLT VOLUME 9.8 fl (7.5-11.1); PLATELET COUNT 195 10^3/uL (134-434); RBC 4.97 M/mm3 (4.00-5.60); RDW 15.5 % (11.9-15.9)
[2020-10-03 15:22] LABS: INR 1.08 (0.83-1.09)
[2020-10-03 15:24] LABS: ACTIVATED PTT 37.4 SECONDS (25.2-36.5)
[2020-10-03] MEDS ORDERED: ACETAMINOPHEN INJECTION 100 ML IVPB ONE (15:30)
[2020-10-03 15:37] LABS: CALCIUM 8.8 mg/dL (8.5-10.1)
[2020-10-03 15:41] LABS: CREATININE 1.1 mg/dL (0.55-1.3)
[2020-10-03 15:42] LABS: BILIRUBIN,TOTAL 1.1 mg/dL (0.2-1)
[2020-10-03] MEDS ORDERED: metoPROLOL SUCCINATE 25 MG TAB.SR.24H (FP) ONE (22:28)
[2020-10-03] MEDS: RANOLAZINE E.R. 500 MG TABLET (FP) PO SCH (23:07)
[2020-10-03] MEDS: metoPROLOL SUCCINATE 25 MG TAB.SR.24H (FP) PO SCH (23:07)
[2020-10-04 03:49] VITALS: BMI 35.2
[2020-10-04] MEDS: INSULIN SLIDING SCALE (NOVOLOG) 1 VIAL SQ SCH ×4 (06:42→21:06)
[2020-10-04] MEDS: metoPROLOL SUCCINATE 25 MG TAB.SR.24H (FP) PO SCH (09:06)
[2020-10-04] MEDS: RANOLAZINE E.R. 500 MG TABLET (FP) PO SCH (09:06)
[2020-10-04 09:09] LABS: BASO % 1.4 % (0-2.0); EOS % 2.4 % (0-4.5); HEMATOCRIT 40.6 % (35.4-49); HEMOGLOBIN 13.6 GM/dL (11.7-16.9); MCH 28.4 pg (25.7-33.7); MCHC 33.6 g/dl (32.0-35.9); MEAN CELL VOLUME 84.6 fl (80-96); MEAN PLT VOLUME 10.4 fl (7.5-11.1); MONO % 9.3 % (3.8-10.2); NEUT % 60.9 % (42.8-82.8); PLATELET COUNT 187 10^3/uL (134-434); RDW 15.6 % (11.9-15.9); WHITE BLOOD COUNT 4.8 K/mm3 (4.0-10.0)
[2020-10-04 09:32] LABS: ALBUMIN 3.6 g/dl (3.4-5.0); BLOOD UREA NITROGEN 13.2 mg/dL (7-18); CALCIUM 8.5 mg/dL (8.5-10.1); PHOSPHOROUS 2.4 mg/dL (2.5-4.9)
[2020-10-04 09:33] LABS: MAGNESIUM 2.3 mg/dL (1.8-2.4)
[2020-10-04 09:36] LABS: CREATININE 0.9 mg/dL (0.55-1.3)
[2020-10-04 09:41] LABS: N-TERMINAL BNP 2052.2 pg/ml (5-125)
[2020-10-04] MEDS ORDERED: CLOPIDOGREL BISULFATE 75 MG TABLET (FP) PO SCH (10:00)
[2020-10-04] MEDS ORDERED: LISINOPRIL 10 MG TABLET PO SCH (10:00)
[2020-10-04] MEDS ORDERED: ISOSORBIDE MONONITRATE 30 MG TAB.SR.24H (FP) PO SCH (10:00)
[2020-10-04] MEDS ORDERED: ISOSORBIDE MONONITRATE 60 MG TAB.SR.24H (FP) PO SCH (11:38)
[2020-10-04] MEDS ORDERED: RANOLAZINE E.R. 1,000 MG TABLET (FP) PO SCH ×2 (12:30→22:00)
[2020-10-04] MEDS ORDERED: metoPROLOL SUCCINATE 25 MG TAB.SR.24H (FP) PO SCH ×2 (12:30→22:00)
[2020-10-04] MEDS ORDERED: RANOLAZINE E.R. 500 MG TABLET (FP) ONE ×2 (13:24→20:42)
[2020-10-04] MEDS ORDERED: metoPROLOL SUCCINATE 25 MG TAB.SR.24H (FP) PO ONE ×2 (13:30→13:45)
[2020-10-04] MEDS ORDERED: RANOLAZINE E.R. 500 MG TABLET (FP) PO SCH (13:30)
[2020-10-04 20:05] VITALS: BP 143/71; PULSE 65; TEMP 98.8
== END 2020-10-04 22:37 ==
LOC: JER 12:35 → JERBED 15:12 → J4W 10-04 02:35
PROVIDERS: ADMIT Family Medicine; ATTEND Family Medicine
PROC: 3E033NZ Introduction of Analgesics, Hypnotics, Sedatives into Peripheral Vein, Percutaneous Approach (ICD-10-PCS; principal; 2020-10-03)
PROC: 3E013VG Introduction of Insulin into Subcutaneous Tissue, Percutaneous Approach (ICD-10-PCS; 2020-10-03)
DX: I25.10 Atherosclerotic heart disease of native coronary artery without angina pectoris (principal); R07.89 Other chest pain; Z86.73 Personal history of transient ischemic attack (TIA), and cerebral infarction without residual deficits; E11.9 Type 2 diabetes mellitus without complications; I11.9 Hypertensive heart disease without heart failure; E66.9 Obesity, unspecified; Z68.35 Body mass index [BMI] 35.0-35.9, adult; E78.00 Pure hypercholesterolemia, unspecified; I11.0 Hypertensive heart disease with heart failure; I50.30 Unspecified diastolic (congestive) heart failure
CPT/HCPCS: 36415; 71045-TC-FY; 80053; 82550; 82962; 83036; 83735; 83880; 84100; 84443; 84484; 85025; 85027; 85610; 85730; 93005; 93010; 96372; 96374; 99285-25; C9803; G0378; J0131; U0003; U0005

== ENCOUNTER 2020-11-11 07:51 | Inpatient (IN) | payer OTHER ==
[2020-11-11] MEDS ORDERED: SODIUM CHLORIDE 0.9% 500 ML INFUS.BAG IV ONE (10:23)
[2020-11-11 11:12] LABS: VENOUS BASE EXCESS 3.6 mmol/L (-2-2); VENOUS O2 SATURATION 39.8 % (70-80); VENOUS PCO2 55.5 mmHg (38-52); VENOUS PH 7.355 (7.310-7.410)
[2020-11-11 11:14] LABS: BASO % 1.5 % (0-2.0); HEMATOCRIT 37.1 % (35.4-49); HEMOGLOBIN 12.3 GM/dL (11.7-16.9); LYMPH % 11.1 % (8-40); MCH 28.2 pg (25.7-33.7); MCHC 33.3 g/dl (32.0-35.9); MEAN CELL VOLUME 84.8 fl (80-96); MEAN PLT VOLUME 10.2 fl (7.5-11.1); MONO % 6.4 % (3.8-10.2); PLATELET COUNT 212 10^3/uL (134-434); RBC 4.37 M/mm3 (4.00-5.60); RDW 16.5 % (11.9-15.9); WHITE BLOOD COUNT 6.3 K/mm3 (4.0-10.0)
[2020-11-11 11:17] LABS: EPI CELLS 5 /uL (0-25.1); HYALINE CASTS 2 /uL (0-3.1); URINE APPEARANCE CLEAR; URINE BACTERIA 4 /uL (0-1359); URINE BILIRUBIN NEGATIVE (NEGATIVE); URINE COLOR YELLOW; URINE GLUCOSE (UA) 3+ (NEGATIVE); URINE KETONE 2+ (NEGATIVE); URINE LEUK ESTERASE NEGATIVE (NEGATIVE); URINE NITRITE NEGATIVE (NEGATIVE); URINE PROTEIN 2+ (NEGATIVE); URINE RBC 18 /uL (0-23.9); URINE WBC 6 /uL (0-25.8)
[2020-11-11 11:22] LABS: INR 1.06 (0.83-1.09); PROTHROMBIN TIME (PATIENT) 13.1 SEC (9.7-13.0)
[2020-11-11 11:24] LABS: ACTIVATED PTT 31.5 SECONDS (25.2-36.5)
[2020-11-11 11:37] LABS: MAGNESIUM 1.5 mg/dL (1.8-2.4)
[2020-11-11 11:40] LABS: ALBUMIN 3.8 g/dl (3.4-5.0); BLOOD UREA NITROGEN 7.5 mg/dL (7-18); CALCIUM 8.4 mg/dL (8.5-10.1)
[2020-11-11 11:44] LABS: CREATININE 0.8 mg/dL (0.55-1.3)
[2020-11-11 11:45] LABS: BILIRUBIN,TOTAL 0.8 mg/dL (0.2-1); TOT PROT 7.2 g/dl (6.4-8.2)
[2020-11-11 11:49] LABS: N-TERMINAL BNP 693.6 pg/ml (5-125)
[2020-11-11] MEDS ORDERED: MAGNESIUM SULF 50% (8.12 MEQ/2 ML-1 GM VIAL) IVPB ONE (11:50)
[2020-11-11] MEDS ORDERED: MAGNESIUM 1GM/D5W - 1 GM/100 ML IVPB IVPB ONE (11:54)
[2020-11-11] MEDS ORDERED: ENOXAPARIN NA (PORCINE) 100 MG/1 ML DISP.SYRIN SQ SCH (22:00)
[2020-11-11] MEDS ORDERED: ASPIRIN COATED 81 MG TABLET.EC ONE (23:19)
[2020-11-11] MEDS ORDERED: SENNOSIDES 8.6MG TABLET (FP) PO ONE (23:20)
[2020-11-11] MEDS ORDERED: FAMOTIDINE 20 MG TABLET ONE (23:20)
[2020-11-11] MEDS ORDERED: metoPROLOL SUCCINATE 25 MG TAB.SR.24H (FP) ONE (23:20)
[2020-11-11] MEDS: ASPIRIN COATED 81 MG TABLET.EC PO SCH (23:28)
[2020-11-11] MEDS: INSULIN SLIDING SCALE (NOVOLOG) 1 VIAL SQ SCH (23:28)
[2020-11-11] MEDS: FAMOTIDINE 20 MG TABLET PO SCH (23:28)
[2020-11-11] MEDS: SENNOSIDES 8.6MG TABLET (FP) PO SCH (23:29)
[2020-11-11] MEDS: metoPROLOL SUCCINATE 25 MG TAB.SR.24H (FP) PO SCH (23:29)
[2020-11-11] MEDS: RANOLAZINE E.R. 1,000 MG TABLET (FP) PO SCH (23:29)
[2020-11-12] MEDS ORDERED: POTASSIUM CHLORIDE ORAL LIQUID 20 MEQ/15 ML PO ONE ×2 (02:26→09:00)
[2020-11-12 04:00] VITALS: BMI 31.0
[2020-11-12] MEDS: INSULIN SLIDING SCALE (NOVOLOG) 1 VIAL SQ SCH ×4 (06:04→22:45)
[2020-11-12 07:36] LABS: HEMATOCRIT 35.5 % (35.4-49); HEMOGLOBIN 11.7 GM/dL (11.7-16.9); MCH 27.6 pg (25.7-33.7); MCHC 33.1 g/dl (32.0-35.9); MEAN CELL VOLUME 83.5 fl (80-96); MEAN PLT VOLUME 9.9 fl (7.5-11.1); PLATELET COUNT 186 10^3/uL (134-434); RBC 4.25 M/mm3 (4.00-5.60); RDW 16.5 % (11.9-15.9); WHITE BLOOD COUNT 6.2 K/mm3 (4.0-10.0)
[2020-11-12 08:12] LABS: MAGNESIUM 1.7 mg/dL (1.8-2.4)
[2020-11-12 08:15] LABS: CREATININE 0.7 mg/dL (0.55-1.3)
[2020-11-12 08:21] LABS: N-TERMINAL BNP 695.6 pg/ml (5-125)
[2020-11-12] MEDS ORDERED: RANOLAZINE E.R. 500 MG TABLET (FP) ONE ×2 (09:22→21:41)
[2020-11-12] MEDS: ASPIRIN COATED 81 MG TABLET.EC PO SCH (09:58)
[2020-11-12] MEDS: SENNOSIDES 8.6MG TABLET (FP) PO SCH ×2 (09:59→22:47)
[2020-11-12] MEDS: CLOPIDOGREL BISULFATE 75 MG TABLET (FP) PO SCH (09:59)
[2020-11-12] MEDS: FERROUS SO4 325 MG TABLET (FP) PO SCH (09:59)
[2020-11-12] MEDS: ISOSORBIDE MONONITRATE 60 MG TAB.SR.24H (FP) PO SCH (09:59)
[2020-11-12] MEDS: FAMOTIDINE 20 MG TABLET PO SCH ×2 (09:59→22:47)
[2020-11-12] MEDS: ATORVASTATIN CA 80 MG TABLET (FP) PO SCH (10:00)
[2020-11-12] MEDS ORDERED: ASPIRIN COATED 81 MG TABLET.EC PO SCH (10:00)
[2020-11-12] MEDS: metoPROLOL SUCCINATE 25 MG TAB.SR.24H (FP) PO SCH ×2 (10:01→22:47)
[2020-11-12] MEDS: LISINOPRIL 10 MG TABLET PO SCH (10:01)
[2020-11-12] MEDS: RANOLAZINE E.R. 1,000 MG TABLET (FP) PO SCH ×2 (10:01→22:47)
[2020-11-12] MEDS: levETIRAcetam 500 MG TABLET (FP) PO SCH (22:47)
[2020-11-13 08:17] LABS: HEMATOCRIT 32.4 % (35.4-49); MCH 28.5 pg (25.7-33.7); MCHC 33.9 g/dl (32.0-35.9); MEAN CELL VOLUME 84.1 fl (80-96); MEAN PLT VOLUME 9.7 fl (7.5-11.1); PLATELET COUNT 192 10^3/uL (134-434); RBC 3.85 M/mm3 (4.00-5.60); RDW 16.2 % (11.9-15.9); WHITE BLOOD COUNT 6.1 K/mm3 (4.0-10.0)
[2020-11-13 08:33] LABS: BLOOD UREA NITROGEN 10.5 mg/dL (7-18); CALCIUM 7.8 mg/dL (8.5-10.1)
[2020-11-13 08:34] LABS: ALBUMIN 3.1 g/dl (3.4-5.0); MAGNESIUM 1.8 mg/dL (1.8-2.4)
[2020-11-13 08:37] LABS: CREATININE 0.9 mg/dL (0.55-1.3); PHOSPHOROUS 2.3 mg/dL (2.5-4.9)
[2020-11-13 08:38] LABS: BILIRUBIN,TOTAL 1.1 mg/dL (0.2-1)
[2020-11-13 08:39] LABS: TOT PROT 6.1 g/dl (6.4-8.2)
[2020-11-13] MEDS: INSULIN SLIDING SCALE (NOVOLOG) 1 VIAL SQ SCH ×4 (10:05→21:38)
[2020-11-13] MEDS ORDERED: RANOLAZINE E.R. 500 MG TABLET (FP) ONE ×2 (10:08→20:53)
[2020-11-13] MEDS: levETIRAcetam 500 MG TABLET (FP) PO SCH ×2 (10:14→21:40)
[2020-11-13] MEDS: ATORVASTATIN CA 80 MG TABLET (FP) PO SCH (10:14)
[2020-11-13] MEDS: metoPROLOL SUCCINATE 25 MG TAB.SR.24H (FP) PO SCH ×2 (10:14→21:40)
[2020-11-13] MEDS: FERROUS SO4 325 MG TABLET (FP) PO SCH (10:14)
[2020-11-13] MEDS: FAMOTIDINE 20 MG TABLET PO SCH ×2 (10:14→21:40)
[2020-11-13] MEDS: CLOPIDOGREL BISULFATE 75 MG TABLET (FP) PO SCH (10:14)
[2020-11-13] MEDS: ISOSORBIDE MONONITRATE 60 MG TAB.SR.24H (FP) PO SCH (10:14)
[2020-11-13] MEDS: LISINOPRIL 10 MG TABLET PO SCH (10:15)
[2020-11-13] MEDS: SENNOSIDES 8.6MG TABLET (FP) PO SCH ×2 (10:15→21:40)
[2020-11-13] MEDS: ASPIRIN COATED 81 MG TABLET.EC PO SCH (10:15)
[2020-11-13] MEDS: RANOLAZINE E.R. 1,000 MG TABLET (FP) PO SCH ×2 (10:17→21:41)
[2020-11-14] MEDS: INSULIN SLIDING SCALE (NOVOLOG) 1 VIAL SQ SCH ×4 (06:28→22:37)
[2020-11-14] MEDS: FERROUS SO4 325 MG TABLET (FP) PO SCH (08:47)
[2020-11-14] MEDS ORDERED: RANOLAZINE E.R. 500 MG TABLET (FP) ONE ×2 (09:25→22:34)
[2020-11-14] MEDS: ASPIRIN COATED 81 MG TABLET.EC PO SCH (09:28)
[2020-11-14] MEDS: ISOSORBIDE MONONITRATE 60 MG TAB.SR.24H (FP) PO SCH (09:28)
[2020-11-14] MEDS: levETIRAcetam 500 MG TABLET (FP) PO SCH ×2 (09:28→22:37)
[2020-11-14] MEDS: SENNOSIDES 8.6MG TABLET (FP) PO SCH ×2 (09:28→22:37)
[2020-11-14] MEDS: CLOPIDOGREL BISULFATE 75 MG TABLET (FP) PO SCH (09:28)
[2020-11-14] MEDS: metoPROLOL SUCCINATE 25 MG TAB.SR.24H (FP) PO SCH ×2 (09:29→22:36)
[2020-11-14] MEDS: LISINOPRIL 10 MG TABLET PO SCH (09:29)
[2020-11-14] MEDS: FAMOTIDINE 20 MG TABLET PO SCH ×2 (09:29→22:36)
[2020-11-14] MEDS: RANOLAZINE E.R. 1,000 MG TABLET (FP) PO SCH ×2 (09:30→22:37)
[2020-11-14] MEDS: NAPH,MB-DB/K PH,MBDB POWDER PACKET PO SCH ×2 (11:03→22:36)
[2020-11-14] MEDS ORDERED: ATORVASTATIN CA 80 MG TABLET (FP) PO SCH (22:00)
[2020-11-15] MEDS: INSULIN SLIDING SCALE (NOVOLOG) 1 VIAL SQ SCH ×2 (06:12→12:17)
[2020-11-15 08:54] LABS: HEMATOCRIT 33.4 % (35.4-49); HEMOGLOBIN 11.2 GM/dL (11.7-16.9); MCH 28.4 pg (25.7-33.7); MCHC 33.6 g/dl (32.0-35.9); MEAN CELL VOLUME 84.4 fl (80-96); MEAN PLT VOLUME 9.1 fl (7.5-11.1); PLATELET COUNT 186 10^3/uL (134-434); RBC 3.95 M/mm3 (4.00-5.60); WHITE BLOOD COUNT 4.2 K/mm3 (4.0-10.0)
[2020-11-15] MEDS: FERROUS SO4 325 MG TABLET (FP) PO SCH (08:55)
[2020-11-15 09:18] LABS: MAGNESIUM 1.9 mg/dL (1.8-2.4)
[2020-11-15 09:19] LABS: BLOOD UREA NITROGEN 13.6 mg/dL (7-18); CALCIUM 8.3 mg/dL (8.5-10.1)
[2020-11-15 09:22] LABS: CREATININE 0.9 mg/dL (0.55-1.3)
[2020-11-15 09:23] LABS: BILIRUBIN,TOTAL 0.9 mg/dL (0.2-1); PHOSPHOROUS 3.1 mg/dL (2.5-4.9); TOT PROT 5.9 g/dl (6.4-8.2)
[2020-11-15] MEDS ORDERED: RANOLAZINE E.R. 500 MG TABLET (FP) ONE (09:45)
[2020-11-15] MEDS: ASPIRIN COATED 81 MG TABLET.EC PO SCH (09:54)
[2020-11-15 09:55] VITALS: BP 150/88; PULSE 66; TEMP 98
[2020-11-15] MEDS: levETIRAcetam 500 MG TABLET (FP) PO SCH (09:55)
[2020-11-15] MEDS: NAPH,MB-DB/K PH,MBDB POWDER PACKET PO SCH (09:55)
[2020-11-15] MEDS: FAMOTIDINE 20 MG TABLET PO SCH (09:55)
[2020-11-15] MEDS: CLOPIDOGREL BISULFATE 75 MG TABLET (FP) PO SCH (09:55)
[2020-11-15] MEDS: RANOLAZINE E.R. 1,000 MG TABLET (FP) PO SCH (09:56)
[2020-11-15] MEDS: LISINOPRIL 10 MG TABLET PO SCH (09:56)
[2020-11-15] MEDS: SENNOSIDES 8.6MG TABLET (FP) PO SCH (09:57)
[2020-11-15] MEDS: metoPROLOL SUCCINATE 25 MG TAB.SR.24H (FP) PO SCH (09:57)
[2020-11-15] MEDS: ISOSORBIDE MONONITRATE 60 MG TAB.SR.24H (FP) PO SCH (09:57)
== END 2020-11-15 12:47 | disposition home health service (06) | DRG 420 ==
LOC: JER 07:51 → JERBED 09:59 → OBSVTOIN 20:29 → J4W 11-12 00:32 → J6S 11-13 13:56
PROVIDERS: ADMIT Internal Medicine; ATTEND Internal Medicine
DX: E11.65 Type 2 diabetes mellitus with hyperglycemia (principal); I25.10 Atherosclerotic heart disease of native coronary artery without angina pectoris; I10 Essential (primary) hypertension; G81.94 Hemiplegia, unspecified affecting left nondominant side; I25.2 Old myocardial infarction; E83.42 Hypomagnesemia; E78.5 Hyperlipidemia, unspecified; R07.89 Other chest pain; L03.90 Cellulitis, unspecified; E87.6 Hypokalemia; R42 Dizziness and giddiness; R53.1 Weakness
CPT/HCPCS: 36415; 70450-TC; 71046-TC-FY; 80048; 80053; 80061; 81003; 82010; 82550; 82803; 82962; 83735; 83880; 84100; 84443; 84484; 85025; 85027; 85610; 85730; 87086; 93005; 93010; 99285-25; C9803; G0378; U0003; U0005

== ENCOUNTER 2021-08-05 20:40 | Observation (INO) | payer OTHER ==
[2021-08-05 21:03] VITALS: BMI 30.4
[2021-08-05] MEDS ORDERED: ACETAMINOPHEN 500 MG TABLET (FP) PO ONE (21:25)
[2021-08-05] MEDS ORDERED: ACETAMINOPHEN 325 MG TABLET (FP) ONE (21:33)
[2021-08-05] MEDS ORDERED: LIDOCAINE 5% TOPICAL PATCH TP ONE (21:58)
[2021-08-05 23:07] LABS: HEMATOCRIT 35.5 % (35.4-49); HEMOGLOBIN 11.9 GM/dL (11.7-16.9); MCH 29.2 pg (25.7-33.7); MCHC 33.5 g/dl (32.0-35.9); MEAN CELL VOLUME 87.2 fl (80-96); MEAN PLT VOLUME 10.8 fl (7.5-11.1); PLATELET COUNT 169 10^3/uL (134-434); RBC 4.07 M/mm3 (4.00-5.60); RDW 15.8 % (11.9-15.9); WHITE BLOOD COUNT 3.8 K/mm3 (4.0-10.0)
[2021-08-05] MEDS ORDERED: LIDOCAINE 5% TOPICAL PATCH ONE (23:11)
[2021-08-05 23:14] LABS: INR 1.85 (0.83-1.09); PROTHROMBIN TIME (PATIENT) 21.4 SEC (9.7-13.0)
[2021-08-05 23:17] LABS: ACTIVATED PTT 51.6 SECONDS (25.2-36.5)
[2021-08-05 23:29] LABS: ALBUMIN 4.1 g/dl (3.4-5.0); BLOOD UREA NITROGEN 23.8 mg/dL (7-18); CALCIUM 8.6 mg/dL (8.5-10.1)
[2021-08-05 23:32] LABS: CREATININE 1.2 mg/dL (0.55-1.3)
[2021-08-05 23:34] LABS: BILIRUBIN,TOTAL 0.6 mg/dL (0.2-1); TOT PROT 7.6 g/dl (6.4-8.2)
[2021-08-06] MEDS ORDERED: ACETAMINOPHEN 325 MG TABLET (FP) PO PRN (04:00)
[2021-08-06 06:44] LABS: EPI CELLS 2 /uL (0-25.1); HYALINE CASTS 1 /uL (0-3.1); URINE APPEARANCE CLEAR; URINE BACTERIA 2 /uL (0-1359); URINE BILIRUBIN NEGATIVE (NEGATIVE); URINE COLOR YELLOW; URINE GLUCOSE (UA) NEGATIVE (NEGATIVE); URINE KETONE NEGATIVE (NEGATIVE); URINE LEUK ESTERASE NEGATIVE (NEGATIVE); URINE NITRITE NEGATIVE (NEGATIVE); URINE PROTEIN NEGATIVE (NEGATIVE); URINE RBC 9 /uL (0-23.9); URINE UROBILINOGEN 0.2 mg/dL (0.2-1.0); URINE WBC 6 /uL (0-25.8)
[2021-08-06] MEDS ORDERED: LIDOCAINE PATCH REMOVAL MC SCH (10:00)
[2021-08-06] MEDS ORDERED: DOCUSATE SODIUM 100 MG CAPSULE (FP) PO PRN (10:33)
[2021-08-06] MEDS: INSULIN SLIDING SCALE (NOVOLOG) 1 VIAL SQ SCH ×3 (12:12→21:53)
[2021-08-06 13:36] LABS: BASO % 0.9 % (0-2.0); EOS % 1.4 % (0-4.5); HEMATOCRIT 35.4 % (35.4-49); HEMOGLOBIN 11.7 GM/dL (11.7-16.9); LYMPH % 30.4 % (8-40); MCH 28.8 pg (25.7-33.7); MEAN CELL VOLUME 87.3 fl (80-96); MEAN PLT VOLUME 10.2 fl (7.5-11.1); MONO % 8.1 % (3.8-10.2); NEUT % 59.2 % (42.8-82.8); PLATELET COUNT 148 10^3/uL (134-434); RBC 4.05 M/mm3 (4.00-5.60); RDW 15.3 % (11.9-15.9); WHITE BLOOD COUNT 3.4 K/mm3 (4.0-10.0)
[2021-08-06 14:28] LABS: CALCIUM 8.4 mg/dL (8.5-10.1)
[2021-08-06 14:29] LABS: BLOOD UREA NITROGEN 18.5 mg/dL (7-18)
[2021-08-06 14:32] LABS: CREATININE 0.8 mg/dL (0.55-1.3)
[2021-08-06] MEDS: metFORMIN HCL 500 MG TABLET (FP) PO SCH (17:50)
[2021-08-06] MEDS: RANOLAZINE E.R. 500 MG TABLET (FP) PO SCH (21:47)
[2021-08-06] MEDS: ATORVASTATIN CA 80 MG TABLET (FP) PO SCH (21:47)
[2021-08-06] MEDS: levETIRAcetam 500 MG TABLET (FP) PO SCH (21:47)
[2021-08-07] MEDS: metFORMIN HCL 500 MG TABLET (FP) PO SCH ×2 (06:16→17:52)
[2021-08-07] MEDS: INSULIN SLIDING SCALE (NOVOLOG) 1 VIAL SQ SCH ×4 (06:17→22:34)
[2021-08-07] MEDS: RANOLAZINE E.R. 500 MG TABLET (FP) PO SCH ×2 (09:38→22:21)
[2021-08-07] MEDS: levETIRAcetam 500 MG TABLET (FP) PO SCH ×2 (09:38→22:21)
[2021-08-07] MEDS: metoPROLOL SUCCINATE 25 MG TAB.SR.24H (FP) PO SCH (09:38)
[2021-08-07] MEDS: LISINOPRIL 10 MG TABLET PO SCH (09:38)
[2021-08-07] MEDS: ISOSORBIDE MONONITRATE 30 MG TAB.SR.24H (FP) PO SCH (09:38)
[2021-08-07] MEDS: ATORVASTATIN CA 80 MG TABLET (FP) PO SCH (22:21)
[2021-08-08] MEDS: metFORMIN HCL 500 MG TABLET (FP) PO SCH ×2 (06:23→16:53)
[2021-08-08] MEDS: INSULIN SLIDING SCALE (NOVOLOG) 1 VIAL SQ SCH ×4 (06:24→21:30)
[2021-08-08] MEDS: ISOSORBIDE MONONITRATE 30 MG TAB.SR.24H (FP) PO SCH (09:21)
[2021-08-08] MEDS: metoPROLOL SUCCINATE 25 MG TAB.SR.24H (FP) PO SCH (09:21)
[2021-08-08] MEDS: levETIRAcetam 500 MG TABLET (FP) PO SCH ×2 (09:21→21:29)
[2021-08-08] MEDS: LISINOPRIL 10 MG TABLET PO SCH (09:21)
[2021-08-08] MEDS: RANOLAZINE E.R. 500 MG TABLET (FP) PO SCH ×2 (09:21→21:29)
[2021-08-08] MEDS: ATORVASTATIN CA 80 MG TABLET (FP) PO SCH (21:30)
[2021-08-09] MEDS: INSULIN SLIDING SCALE (NOVOLOG) 1 VIAL SQ SCH ×3 (06:26→16:33)
[2021-08-09] MEDS: metFORMIN HCL 500 MG TABLET (FP) PO SCH ×2 (06:26→16:33)
[2021-08-09] MEDS: metoPROLOL SUCCINATE 25 MG TAB.SR.24H (FP) PO SCH (09:03)
[2021-08-09] MEDS: LISINOPRIL 10 MG TABLET PO SCH (09:03)
[2021-08-09] MEDS: ISOSORBIDE MONONITRATE 30 MG TAB.SR.24H (FP) PO SCH (09:03)
[2021-08-09] MEDS: RANOLAZINE E.R. 500 MG TABLET (FP) PO SCH (10:02)
[2021-08-09] MEDS: levETIRAcetam 500 MG TABLET (FP) PO SCH (10:02)
[2021-08-09 18:21] VITALS: BP 135/73; PULSE 63; TEMP 98.9
== END 2021-08-09 18:30 ==
LOC: JER 20:40 → JERBED 21:24 → J7W 08-06 06:44
PROVIDERS: ADMIT Family Medicine; ATTEND Family Medicine
DX: M16.12 Unilateral primary osteoarthritis, left hip (principal); I25.10 Atherosclerotic heart disease of native coronary artery without angina pectoris; I11.0 Hypertensive heart disease with heart failure; E11.9 Type 2 diabetes mellitus without complications; M25.562 Pain in left knee; E78.00 Pure hypercholesterolemia, unspecified; G89.29 Other chronic pain; Z86.73 Personal history of transient ischemic attack (TIA), and cerebral infarction without residual deficits; E66.9 Obesity, unspecified; I25.2 Old myocardial infarction; Z68.30 Body mass index [BMI] 30.0-30.9, adult; Z20.822 Contact with and (suspected) exposure to COVID-19; Z87.891 Personal history of nicotine dependence
CPT/HCPCS: 36415; 73502-TC-LT-FY; 73552-TC-LT-FY; 73560-TC-LT-FY; 80048; 80053; 81003; 82962; 83036; 84484; 85025; 85027; 85610; 85730; 87086; 93005; 93010; 97116-GP; 97162-GP; 99285-25; C9803-CS; G0378; U0003; U0005

== ENCOUNTER 2022-10-01 18:00 | Observation (INO) | payer OTHER ==
[2022-10-01 18:31] VITALS: BMI 46.5
[2022-10-01 20:14] LABS: BASO % 0.9 % (0-2.0); EOS % 1.5 % (0-4.5); HEMATOCRIT 38.7 % (35.4-49); HEMOGLOBIN 12.6 GM/dL (11.7-16.9); LYMPH % 23.9 % (8-40); MCH 28.1 pg (25.7-33.7); MCHC 32.5 g/dl (32.0-35.9); MEAN CELL VOLUME 86.4 fl (80-96); MEAN PLT VOLUME 8.5 fl (7.5-11.1); MONO % 7.8 % (3.8-10.2); NEUT % 65.9 % (42.8-82.8); PLATELET COUNT 289 10^3/uL (134-434); RBC 4.48 M/mm3 (4.00-5.60); RDW 15.6 % (11.9-15.9); WHITE BLOOD COUNT 6.2 K/mm3 (4.0-10.0)
[2022-10-01 20:31] LABS: INR 0.99 (0.83-1.09); PROTHROMBIN TIME (PATIENT) 11.5 SEC (9.7-13.0)
[2022-10-01 20:34] LABS: ACTIVATED PTT 39.7 SECONDS (25.2-36.5)
[2022-10-01 20:36] LABS: CHLORIDE 109 mmol/L (98-107); POTASSIUM 4.4 mmol/L (3.5-5.1); SODIUM 143 mmol/L (136-145)
[2022-10-01 20:39] LABS: ALBUMIN 3.7 g/dl (3.4-5.0); ANION GAP 7 MMOL/L (8-16); BLOOD UREA NITROGEN 15.8 mg/dL (7-18); CO2 27 mmol/L (21-32); LIPASE 459 U/L (73-393)
[2022-10-01 20:42] LABS: CREATININE 1.3 mg/dL (0.55-1.3); SGOT/AST 16 U/L (15-37); SGPT/ALT 21 U/L (13-61)
[2022-10-01 20:43] LABS: BILIRUBIN,TOTAL 0.3 mg/dL (0.2-1)
[2022-10-01 20:45] LABS: ALK PHOS 76 U/L (45-117)
[2022-10-01 20:57] LABS: GLUCOSE,RANDOM 40 mg/dL (74-106)
[2022-10-01] MEDS ORDERED: DEXTROSE 50%-WATER - 25 GM/50 ML VIAL IVPUSH ONE (21:03)
[2022-10-01] MEDS ORDERED: DEXTROSE 50%-WATER 25 GM/50 ML DISP.SYRIN ONE (21:07)
[2022-10-01 23:38] LABS: PH,URINE 5.5 (5.0-8.0); URINE APPEARANCE CLEAR; URINE BILIRUBIN NEGATIVE (NEGATIVE); URINE COLOR YELLOW; URINE GLUCOSE (UA) NEGATIVE (NEGATIVE); URINE KETONE TRACE (NEGATIVE); URINE LEUK ESTERASE NEGATIVE (NEGATIVE); URINE NITRITE NEGATIVE (NEGATIVE); URINE PROTEIN NEGATIVE (NEGATIVE)
[2022-10-02] MEDS ORDERED: DEXTROSE 50%-WATER - 25 GM/50 ML VIAL IVPUSH ONE (02:17)
[2022-10-02] MEDS ORDERED: DEXTROSE 50%-WATER 25 GM/50 ML DISP.SYRIN ONE (02:18)
[2022-10-02] MEDS ORDERED: DEXTROSE 50%-WATER - 25 GM/50 ML VIAL IVPUSH PRN (07:14)
[2022-10-02 08:44] LABS: EOS % 1.9 % (0-4.5); HEMATOCRIT 37.7 % (35.4-49); LYMPH % 20.1 % (8-40); MCHC 31.8 g/dl (32.0-35.9); MEAN CELL VOLUME 87.9 fl (80-96); MONO % 8.1 % (3.8-10.2); NEUT % 68.9 % (42.8-82.8); PLATELET COUNT 285 10^3/uL (134-434); RBC 4.29 M/mm3 (4.00-5.60); RDW 15.2 % (11.9-15.9); WHITE BLOOD COUNT 4.9 K/mm3 (4.0-10.0)
[2022-10-02 09:08] LABS: POTASSIUM 4.2 mmol/L (3.5-5.1)
[2022-10-02 09:12] LABS: ALBUMIN 3.5 g/dl (3.4-5.0); CALCIUM 8.7 mg/dL (8.5-10.1)
[2022-10-02 09:16] LABS: BILIRUBIN,TOTAL 0.5 mg/dL (0.2-1); TOT PROT 6.7 g/dl (6.4-8.2)
[2022-10-02] MEDS ORDERED: levETIRAcetam 500 MG TABLET (FP) PO ONE (10:19)
[2022-10-02] MEDS ORDERED: ASPIRIN COATED 81 MG TABLET.EC ONE (10:19)
[2022-10-02] MEDS ORDERED: CLOPIDOGREL BISULFATE 75 MG TABLET (FP) ONE (10:20)
[2022-10-02] MEDS ORDERED: metoPROLOL SUCCINATE 25 MG TAB.SR.24H (FP) PO ONE (10:20)
[2022-10-02] MEDS ORDERED: SENNOSIDES 8.6MG TABLET (FP) PO ONE (10:20)
[2022-10-02] MEDS ORDERED: ISOSORBIDE MONONITRATE 60 MG TAB.SR.24H (FP) PO ONE (10:20)
[2022-10-02] MEDS ORDERED: RANOLAZINE E.R. 500 MG TABLET (FP) ONE ×2 (10:20→21:37)
[2022-10-02] MEDS ORDERED: LISINOPRIL 10 MG TABLET ONE (10:20)
[2022-10-02] MEDS: CLOPIDOGREL BISULFATE 75 MG TABLET (FP) PO SCH (10:28)
[2022-10-02] MEDS: ISOSORBIDE MONONITRATE 60 MG TAB.SR.24H (FP) PO SCH (10:28)
[2022-10-02] MEDS: levETIRAcetam 500 MG TABLET (FP) PO SCH ×2 (10:28→22:09)
[2022-10-02] MEDS: LISINOPRIL 10 MG TABLET PO SCH (10:28)
[2022-10-02] MEDS: RANOLAZINE E.R. 1,000 MG TABLET (FP) PO SCH ×2 (10:28→22:23)
[2022-10-02] MEDS: metoPROLOL SUCCINATE 25 MG TAB.SR.24H (FP) PO SCH (10:28)
[2022-10-02] MEDS: ASPIRIN COATED 81 MG TABLET.EC PO SCH (10:28)
[2022-10-02] MEDS: SENNOSIDES 8.6MG TABLET (FP) PO SCH ×2 (10:28→22:09)
[2022-10-02] MEDS: ACETAMINOPHEN 325 MG TABLET (FP) PO PRN (18:08)
[2022-10-02] MEDS: ATORVASTATIN CA 80 MG TABLET (FP) PO SCH (22:08)
[2022-10-02] MEDS ORDERED: RANOLAZINE E.R. 500 MG TABLET (FP) PO SCH (22:10)
[2022-10-02] MEDS: RANOLAZINE E.R. 500 MG TABLET (FP) PO SCH (22:19)
[2022-10-03] MEDS: RANOLAZINE E.R. 500 MG TABLET (FP) PO SCH ×2 (10:22→22:28)
[2022-10-03] MEDS: CLOPIDOGREL BISULFATE 75 MG TABLET (FP) PO SCH (10:22)
[2022-10-03] MEDS: levETIRAcetam 500 MG TABLET (FP) PO SCH ×2 (10:22→22:27)
[2022-10-03] MEDS: ISOSORBIDE MONONITRATE 60 MG TAB.SR.24H (FP) PO SCH (10:22)
[2022-10-03] MEDS: SENNOSIDES 8.6MG TABLET (FP) PO SCH ×2 (10:22→22:27)
[2022-10-03] MEDS: ASPIRIN COATED 81 MG TABLET.EC PO SCH (10:22)
[2022-10-03] MEDS: LISINOPRIL 10 MG TABLET PO SCH (10:22)
[2022-10-03] MEDS: metoPROLOL SUCCINATE 25 MG TAB.SR.24H (FP) PO SCH (13:01)
[2022-10-03] MEDS: metFORMIN HCL 500 MG TABLET (FP) PO SCH (17:14)
[2022-10-03] MEDS: INSULIN SLIDING SCALE (NOVOLOG) 1 VIAL SQ SCH ×2 (17:14→22:28)
[2022-10-03] MEDS: ATORVASTATIN CA 80 MG TABLET (FP) PO SCH (22:27)
[2022-10-04] MEDS: INSULIN SLIDING SCALE (NOVOLOG) 1 VIAL SQ SCH ×3 (06:38→16:28)
[2022-10-04] MEDS: metFORMIN HCL 500 MG TABLET (FP) PO SCH ×2 (06:38→15:59)
[2022-10-04 06:52] VITALS: RESP 18
[2022-10-04] MEDS: levETIRAcetam 500 MG TABLET (FP) PO SCH ×2 (07:50→12:01)
[2022-10-04] MEDS ORDERED: REGADENOSON 0.4 MG/5 ML PRE-FILLED SYRINGE IVPUSH ONE ×2 (08:42→09:00)
[2022-10-04] MEDS: ASPIRIN COATED 81 MG TABLET.EC PO SCH (11:51)
[2022-10-04] MEDS: CLOPIDOGREL BISULFATE 75 MG TABLET (FP) PO SCH (11:52)
[2022-10-04] MEDS: LISINOPRIL 10 MG TABLET PO SCH (11:52)
[2022-10-04] MEDS: SENNOSIDES 8.6MG TABLET (FP) PO SCH (11:52)
[2022-10-04] MEDS: RANOLAZINE E.R. 500 MG TABLET (FP) PO SCH (11:52)
[2022-10-04] MEDS: ISOSORBIDE MONONITRATE 60 MG TAB.SR.24H (FP) PO SCH (11:52)
[2022-10-04] MEDS: metoPROLOL SUCCINATE 25 MG TAB.SR.24H (FP) PO SCH (11:56)
[2022-10-04 15:44] VITALS: BP 95/57; PULSE 66; TEMP 98.2
[2022-10-04] MEDS: ACETAMINOPHEN 325 MG TABLET (FP) PO PRN (15:59)
== END 2022-10-04 17:53 ==
LOC: JER 18:00 → JERBED 10-02 00:12 → J4W 10-02 15:42
PROVIDERS: ADMIT Family Medicine; ATTEND Family Medicine
PROC: 3E0337Z Introduction of Electrolytic and Water Balance Substance into Peripheral Vein, Percutaneous Approach (ICD-10-PCS; principal; 2022-10-02)
PROC: 3E033GC Introduction of Other Therapeutic Substance into Peripheral Vein, Percutaneous Approach (ICD-10-PCS; 2022-10-02)
DX: I25.110 Atherosclerotic heart disease of native coronary artery with unstable angina pectoris (principal); I11.0 Hypertensive heart disease with heart failure; I25.2 Old myocardial infarction; I10 Essential (primary) hypertension; E78.5 Hyperlipidemia, unspecified; E11.9 Type 2 diabetes mellitus without complications; I69.954 Hemiplegia and hemiparesis following unspecified cerebrovascular disease affecting left non-dominant side; Z87.891 Personal history of nicotine dependence; R07.9 Chest pain, unspecified; Z96.60 Presence of unspecified orthopedic joint implant; M19.90 Unspecified osteoarthritis, unspecified site; F10.21 Alcohol dependence, in remission; G89.29 Other chronic pain; M25.562 Pain in left knee
CPT/HCPCS: 36415; 71045-TC-FY; 76705-TC; 78452-TC; 80053; 80061; 81003; 82962; 83036; 83690; 84484; 85025; 85610; 85730; 87086; 93005; 93010; 93017; 93306-TC; 96360; 96361; 96374; 99285-25; A9502; G0378; J2785

== ENCOUNTER 2023-11-12 13:50 | Inpatient (IN) | payer OTHER ==
[2023-11-12] MEDS: SODIUM CHLORIDE 1,000 ML IV SCH (15:06)
[2023-11-12 15:23] LABS: BASO % 0.5 % (0-2.0); EOS % 1.5 % (0-4.5); HEMATOCRIT 35.5 % (35.4-49); HEMOGLOBIN 11.4 GM/dL (11.7-16.9); LYMPH % 19.4 % (8-40); MCH 30.5 pg (25.7-33.7); MCHC 32.1 g/dl (32.0-35.9); MEAN PLT VOLUME 8.8 fl (7.5-11.1); MONO % 8.5 % (3.8-10.2); NEUT % 70.1 % (42.8-82.8); PLATELET COUNT 218 10^3/uL (134-434); RBC 3.74 M/mm3 (4.00-5.60); RDW 15.5 % (11.9-15.9); WHITE BLOOD COUNT 4.6 K/mm3 (4.0-10.0)
[2023-11-12 15:29] LABS: INR 0.98 (0.83-1.09); PROTHROMBIN TIME (PATIENT) 11.3 SEC (9.7-13.0)
[2023-11-12 15:31] LABS: ACTIVATED PTT 41.8 SECONDS (25.2-36.5)
[2023-11-12 15:45] LABS: POTASSIUM 5.4 mmol/L (3.5-5.1)
[2023-11-12 15:48] LABS: CALCIUM 8.8 mg/dL (8.5-10.1)
[2023-11-12 15:49] LABS: ALBUMIN 3.3 g/dl (3.4-5.0)
[2023-11-12 15:51] LABS: BLOOD UREA NITROGEN 35.3 mg/dL (7-18)
[2023-11-12 15:52] LABS: CREATININE 2.1 mg/dL (0.55-1.3)
[2023-11-12 15:54] LABS: TOT PROT 6.6 g/dl (6.4-8.2)
[2023-11-12 15:55] LABS: BILIRUBIN,TOTAL 0.8 mg/dL (0.2-1)
[2023-11-12] MEDS ORDERED: ACETAMINOPHEN 1000 MG/100 ML BAG IVPB PRN (17:10)
[2023-11-12] MEDS: ATORVASTATIN CA 40 MG TABLET (FP) PO SCH (23:00)
[2023-11-13 03:10] LABS: PH,URINE 5.5 (5.0-8.0); URINE APPEARANCE CLEAR; URINE BILIRUBIN NEGATIVE (NEGATIVE); URINE COLOR YELLOW; URINE GLUCOSE (UA) 3+ (NEGATIVE); URINE KETONE NEGATIVE (NEGATIVE); URINE LEUK ESTERASE NEGATIVE (NEGATIVE); URINE NITRITE NEGATIVE (NEGATIVE); URINE PROTEIN TRACE (NEGATIVE)
[2023-11-13 07:36] LABS: BASO % 0.8 % (0-2.0); EOS % 1.9 % (0-4.5); HEMATOCRIT 37.1 % (35.4-49); HEMOGLOBIN 11.7 GM/dL (11.7-16.9); LYMPH % 31.8 % (8-40); MCH 30.1 pg (25.7-33.7); MCHC 31.6 g/dl (32.0-35.9); MEAN CELL VOLUME 95.4 fl (80-96); MEAN PLT VOLUME 9.3 fl (7.5-11.1); MONO % 10.3 % (3.8-10.2); NEUT % 55.2 % (42.8-82.8); PLATELET COUNT 217 10^3/uL (134-434); RBC 3.89 M/mm3 (4.00-5.60); RDW 15.2 % (11.9-15.9)
[2023-11-13 07:49] LABS: CHLORIDE 107 mmol/L (98-107); POTASSIUM 4.9 mmol/L (3.5-5.1); SODIUM 140 mmol/L (136-145)
[2023-11-13 07:53] LABS: CALCIUM 8.8 mg/dL (8.5-10.1)
[2023-11-13 07:54] LABS: ALBUMIN 3.7 g/dl (3.4-5.0); ANION GAP 6 mmol/L (4-13); BLOOD UREA NITROGEN 37.6 mg/dL (7-18); CO2 28 mmol/L (21-32); MAGNESIUM 2.6 mg/dL (1.8-2.4)
[2023-11-13 07:57] LABS: CHOLESTEROL 136 mg/dL (50-200); CREATININE 2.2 mg/dL (0.55-1.3); SGOT/AST 7 U/L (15-37); SGPT/ALT 17 U/L (13-61)
[2023-11-13 07:58] LABS: BILIRUBIN,TOTAL 0.6 mg/dL (0.2-1); LDL CHOLESTEROL (ONLY SJRH) 71 mg/dL (5-100); TOT PROT 7.2 g/dl (6.4-8.2)
[2023-11-13 07:59] LABS: ALK PHOS 67 U/L (45-117); HDL CHOLESTEROL 51 mg/dL (40-60)
[2023-11-13 08:00] LABS: GLUCOSE,RANDOM 49 mg/dL (74-106)
[2023-11-13] MEDS ORDERED: ASPIRIN COATED 81 MG TABLET.EC PO SCH (10:00)
[2023-11-13] MEDS ORDERED: RANOLAZINE E.R. 500 MG TABLET (FP) ONE ×2 (10:08→22:10)
[2023-11-13] MEDS: levETIRAcetam 500 MG TABLET (FP) PO SCH (10:10)
[2023-11-13] MEDS: metoPROLOL SUCCINATE 25 MG TAB.SR.24H (FP) PO SCH (10:10)
[2023-11-13] MEDS: ISOSORBIDE MONONITRATE 60 MG TAB.SR.24H (FP) PO SCH (10:10)
[2023-11-13] MEDS: CLOPIDOGREL BISULFATE 75 MG TABLET (FP) PO SCH (10:10)
[2023-11-13] MEDS: ASPIRIN COATED 81 MG TABLET.EC PO SCH (10:11)
[2023-11-13 11:53] VITALS: BMI 20.7
[2023-11-13] MEDS: RANOLAZINE E.R. 1,000 MG TABLET (FP) PO SCH (12:23)
[2023-11-13] MEDS: DEXTROSE 5%-0.45% SALINE 1,000 ML IV SCH ×2 (12:24→17:33)
[2023-11-13] MEDS: CEFTRIAXONE 1 GM in DEXTROSE 5%-WATER - 50 ML IVPB SCH (17:33)
[2023-11-13] MEDS: ATORVASTATIN CA 80 MG TABLET (FP) PO SCH (22:13)
[2023-11-13 22:41] LABS: URINE APPEARANCE CLEAR; URINE BILIRUBIN NEGATIVE (NEGATIVE); URINE COLOR YELLOW; URINE GLUCOSE (UA) 3+ (NEGATIVE); URINE KETONE TRACE (NEGATIVE); URINE LEUK ESTERASE NEGATIVE (NEGATIVE); URINE NITRITE NEGATIVE (NEGATIVE); URINE PROTEIN NEGATIVE (NEGATIVE)
[2023-11-14] MEDS ORDERED: RANOLAZINE E.R. 500 MG TABLET (FP) ONE ×2 (10:29→22:07)
[2023-11-15 08:35] LABS: BASO % 0.8 % (0-2.0); EOS % 2.8 % (0-4.5); HEMATOCRIT 30.6 % (35.4-49); HEMOGLOBIN 9.7 GM/dL (11.7-16.9); LYMPH % 24.4 % (8-40); MCH 30.1 pg (25.7-33.7); MCHC 31.6 g/dl (32.0-35.9); MEAN CELL VOLUME 95.5 fl (80-96); MEAN PLT VOLUME 9.5 fl (7.5-11.1); MONO % 13.3 % (3.8-10.2); NEUT % 58.7 % (42.8-82.8); PLATELET COUNT 158 10^3/uL (134-434); RBC 3.21 M/mm3 (4.00-5.60); RDW 14.8 % (11.9-15.9); WHITE BLOOD COUNT 3.8 K/mm3 (4.0-10.0)
[2023-11-15 08:54] LABS: POTASSIUM 4.4 mmol/L (3.5-5.1)
[2023-11-15 08:58] LABS: ALBUMIN 3.2 g/dl (3.4-5.0); CALCIUM 8.4 mg/dL (8.5-10.1)
[2023-11-15 09:01] LABS: CREATININE 1.8 mg/dL (0.55-1.3)
[2023-11-15 09:03] LABS: BILIRUBIN,TOTAL 0.4 mg/dL (0.2-1); TOT PROT 6.2 g/dl (6.4-8.2)
[2023-11-15] MEDS: hydrALAZINE HCL 10 MG TABLET PO SCH (15:01)
[2023-11-15] MEDS ORDERED: RANOLAZINE E.R. 500 MG TABLET (FP) ONE (21:09)
[2023-11-16] MEDS: HEPARIN NA (PORCINE) 5,000 UNITS/ML 1ML VIAL SQ SCH (13:27)
[2023-11-16] MEDS: INSULIN ASPART SLIDING SCALE (NOVOLOG) 1 VIAL SQ SCH (17:39)
[2023-11-16 18:38] VITALS: RESP 18
[2023-11-16] MEDS ORDERED: RANOLAZINE E.R. 500 MG TABLET (FP) ONE (21:01)
[2023-11-17] MEDS ORDERED: RANOLAZINE E.R. 500 MG TABLET (FP) ONE (10:24)
[2023-11-17 15:47] VITALS: BP 132/79; PULSE 55; TEMP 97.9
== END 2023-11-17 17:25 | DRG 469 ==
LOC: JER 13:50 → JERBED 16:16 → OBSVTOIN 16:19 → J4W 20:45
PROVIDERS: ADMIT Internal Medicine; ATTEND Internal Medicine
DX: N17.9 Acute kidney failure, unspecified (principal); I69.354 Hemiplegia and hemiparesis following cerebral infarction affecting left non-dominant side; G20.A1 Parkinson's disease without dyskinesia, without mention of fluctuations; E11.22 Type 2 diabetes mellitus with diabetic chronic kidney disease; E11.649 Type 2 diabetes mellitus with hypoglycemia without coma; I13.0 Hypertensive heart and chronic kidney disease with heart failure and stage 1 through stage 4 chronic kidney disease, or unspecified chronic kidney disease; I50.9 Heart failure, unspecified; E11.40 Type 2 diabetes mellitus with diabetic neuropathy, unspecified; N18.9 Chronic kidney disease, unspecified; E78.5 Hyperlipidemia, unspecified; I25.10 Atherosclerotic heart disease of native coronary artery without angina pectoris; Z79.84 Long term (current) use of oral hypoglycemic drugs; I25.2 Old myocardial infarction; R55 Syncope and collapse; R47.1 Dysarthria and anarthria
CPT/HCPCS: 36415; 70450-TC; 70496-TC; 70498-TC; 70551-TC; 71045-TC-FY; 76775-TC; 76856-TC; 80053; 80061; 80177; 81003; 82550; 82962; 83036; 83525; 83735; 84100; 84443; 84484; 85025; 85610; 85730; 86850; 86900; 86901; 87040; 87086; 93005; 93010; 93306-TC; 99285-25; G0378; J1644

== ENCOUNTER 2023-12-10 14:17 | Observation (INO) | payer OTHER ==
[2023-12-10 17:07] LABS: VENOUS BASE EXCESS 0.3 mmol/L (-2-2); VENOUS O2 SATURATION 44.3 % (70-80); VENOUS PCO2 52.9 mmHg (38-52); VENOUS PH 7.327 (7.310-7.410)
[2023-12-10 17:18] LABS: BASO % 0.6 % (0-2.0); EOS % 0.9 % (0-4.5); HEMATOCRIT 34.2 % (35.4-49); HEMOGLOBIN 11.1 GM/dL (11.7-16.9); LYMPH % 17.4 % (8-40); MCH 30.6 pg (25.7-33.7); MCHC 32.4 g/dl (32.0-35.9); MEAN CELL VOLUME 94.4 fl (80-96); MEAN PLT VOLUME 9.8 fl (7.5-11.1); NEUT % 72.1 % (42.8-82.8); PLATELET COUNT 174 10^3/uL (134-434); RBC 3.63 M/mm3 (4.00-5.60); RDW 14.9 % (11.9-15.9); WHITE BLOOD COUNT 4.5 K/mm3 (4.0-10.0)
[2023-12-10 17:25] LABS: INR 1.05 (0.83-1.09); PROTHROMBIN TIME (PATIENT) 11.9 SEC (9.7-13.0)
[2023-12-10 17:27] LABS: ACTIVATED PTT 36.1 SECONDS (25.2-36.5)
[2023-12-10 17:27] LABS: PH,URINE 5.5 (5.0-8.0); URINE APPEARANCE CLEAR; URINE BILIRUBIN NEGATIVE (NEGATIVE); URINE COLOR YELLOW; URINE GLUCOSE (UA) 3+ (NEGATIVE); URINE KETONE NEGATIVE (NEGATIVE); URINE LEUK ESTERASE NEGATIVE (NEGATIVE); URINE NITRITE NEGATIVE (NEGATIVE); URINE PROTEIN NEGATIVE (NEGATIVE)
[2023-12-10 17:30] LABS: POTASSIUM 4.8 mmol/L (3.5-5.1)
[2023-12-10 17:32] LABS: ALBUMIN 3.6 g/dl (3.4-5.0); BLOOD UREA NITROGEN 31.7 mg/dL (7-18)
[2023-12-10 17:33] LABS: CALCIUM 9.1 mg/dL (8.5-10.1)
[2023-12-10 17:36] LABS: CREATININE 2.4 mg/dL (0.55-1.3)
[2023-12-10 17:37] LABS: BILIRUBIN,TOTAL 0.7 mg/dL (0.2-1); TOT PROT 6.5 g/dl (6.4-8.2)
[2023-12-10] MEDS ORDERED: ACETAMINOPHEN INJECTION 100 ML ONE (17:42)
[2023-12-10] MEDS: SODIUM CHLORIDE 0.9% 500 ML INFUS.BAG IV ONE ×2 (17:54→20:05)
[2023-12-10] MEDS: ACETAMINOPHEN 1000 MG/100 ML BAG IVPB ONE (17:55)
[2023-12-11] MEDS: INSULIN ASPART SLIDING SCALE (NOVOLOG) 1 VIAL SQ SCH (07:30)
[2023-12-11] MEDS ORDERED: ASPIRIN COATED 81 MG TABLET.EC ONE (09:54)
[2023-12-11] MEDS ORDERED: ISOSORBIDE MONONITRATE 60 MG TAB.SR.24H (FP) PO ONE (09:54)
[2023-12-11] MEDS ORDERED: SENNOSIDES 8.6MG TABLET (FP) PO ONE (09:55)
[2023-12-11] MEDS ORDERED: RANOLAZINE E.R. 500 MG TABLET (FP) ONE ×2 (09:55→21:23)
[2023-12-11] MEDS ORDERED: CLOPIDOGREL BISULFATE 75 MG TABLET (FP) ONE (09:55)
[2023-12-11] MEDS ORDERED: metoPROLOL SUCCINATE 25 MG TAB.SR.24H (FP) PO ONE (09:55)
[2023-12-11] MEDS ORDERED: levETIRAcetam 500 MG TABLET (FP) PO ONE (09:56)
[2023-12-11 10:02] LABS: BASO % 0.8 % (0-2.0); HEMATOCRIT 36.9 % (35.4-49); HEMOGLOBIN 11.7 GM/dL (11.7-16.9); MCH 30.6 pg (25.7-33.7); MCHC 31.7 g/dl (32.0-35.9); MEAN CELL VOLUME 96.7 fl (80-96); MONO % 9.4 % (3.8-10.2); NEUT % 63.8 % (42.8-82.8); PLATELET COUNT 153 10^3/uL (134-434); RBC 3.82 M/mm3 (4.00-5.60); RDW 14.8 % (11.9-15.9)
[2023-12-11] MEDS: SENNOSIDES 8.6MG TABLET (FP) PO SCH (10:04)
[2023-12-11] MEDS: levETIRAcetam 500 MG TABLET (FP) PO SCH ×2 (10:04→21:53)
[2023-12-11] MEDS: ASPIRIN COATED 81 MG TABLET.EC PO SCH (10:04)
[2023-12-11] MEDS: CLOPIDOGREL BISULFATE 75 MG TABLET (FP) PO SCH (10:04)
[2023-12-11] MEDS: ISOSORBIDE MONONITRATE 60 MG TAB.SR.24H (FP) PO SCH (10:04)
[2023-12-11] MEDS: RANOLAZINE E.R. 1,000 MG TABLET (FP) PO SCH (10:04)
[2023-12-11] MEDS: metoPROLOL SUCCINATE 25 MG TAB.SR.24H (FP) PO SCH (10:04)
[2023-12-11] MEDS: SODIUM CHLORIDE 0.45% 1,000 ML IV SCH (15:34)
[2023-12-11] MEDS ORDERED: INSULIN ASPART SLIDING SCALE (NOVOLOG) 1 VIAL SQ ONE (18:34)
[2023-12-11] MEDS: ATORVASTATIN CA 80 MG TABLET (FP) PO SCH (21:53)
[2023-12-12] MEDS ORDERED: RANOLAZINE E.R. 500 MG TABLET (FP) ONE ×2 (10:06→22:19)
[2023-12-12] MEDS: ACETAMINOPHEN 325 MG TABLET (FP) PO PRN (12:18)
[2023-12-12] MEDS: RANOLAZINE E.R. 500 MG TABLET (FP) PO SCH (22:32)
[2023-12-13 07:25] LABS: HEMATOCRIT 34.8 % (35.4-49); HEMOGLOBIN 11.7 GM/dL (11.7-16.9); MCH 31.2 pg (25.7-33.7); MCHC 33.7 g/dl (32.0-35.9); MEAN CELL VOLUME 92.7 fl (80-96); MEAN PLT VOLUME 9.3 fl (7.5-11.1); PLATELET COUNT 146 10^3/uL (134-434); RBC 3.76 M/mm3 (4.00-5.60); RDW 14.3 % (11.9-15.9); WHITE BLOOD COUNT 4.5 K/mm3 (4.0-10.0)
[2023-12-13 07:49] LABS: POTASSIUM 4.4 mmol/L (3.5-5.1)
[2023-12-13 07:52] LABS: CALCIUM 8.3 mg/dL (8.5-10.1)
[2023-12-13 07:53] LABS: BLOOD UREA NITROGEN 19.4 mg/dL (7-18)
[2023-12-13 07:56] LABS: CREATININE 1.8 mg/dL (0.55-1.3)
[2023-12-13 10:49] VITALS: BP 118/73; PULSE 56; RESP 19; TEMP 97.9
[2023-12-13 15:10] VITALS: BMI 21.7
== END 2023-12-13 11:55 ==
LOC: JER 14:17 → JERBED 20:48 → J4W 12-11 18:50
PROVIDERS: ADMIT Internal Medicine; ATTEND Family Medicine
PROC: 3E033NZ Introduction of Analgesics, Hypnotics, Sedatives into Peripheral Vein, Percutaneous Approach (ICD-10-PCS; principal; 2023-12-10)
PROC: 3E0337Z Introduction of Electrolytic and Water Balance Substance into Peripheral Vein, Percutaneous Approach (ICD-10-PCS; 2023-12-10)
DX: G93.41 Metabolic encephalopathy (principal); N17.9 Acute kidney failure, unspecified; E86.0 Dehydration; I25.10 Atherosclerotic heart disease of native coronary artery without angina pectoris; E78.00 Pure hypercholesterolemia, unspecified; E11.9 Type 2 diabetes mellitus without complications; R55 Syncope and collapse; I10 Essential (primary) hypertension; Z86.73 Personal history of transient ischemic attack (TIA), and cerebral infarction without residual deficits
CPT/HCPCS: 0241U-QW; 36415; 70450-TC; 71045-TC-FY; 80048; 80053; 80177; 81003; 82803; 82962; 83605; 84484; 85025; 85027; 85610; 85730; 86850; 86900; 86901; 87086; 93005; 93010; 96361; 96374; 99285-25; G0378; J0131